=== PATIENT | female | born 1985 | race Caucasian/White ===

== ENCOUNTER → 2020-11-09 12:54 | Outpatient (BNVA) | payer MEDICAID, SELFPAY | PROVIDERS: PCP Internal Medicine; Referring Provider Internal Medicine Medical Oncology; Visit Provider Internal Medicine | DX: R07.2 Precordial pain (principal); I10 Essential (primary) hypertension | CPT/HCPCS: 93005; 99202 ==

== ENCOUNTER 2020-11-23 08:18 | Outpatient (REF) | payer MEDICAID, SELFPAY ==
[2020-11-23 09:42] LABS: Anion Gap 10 (12-20); Blood Urea Nitrogen 9 mg/dL (9-16); Calcium 10.1 mg/dL (8.4-10.2); Carbon Dioxide 31 mmol/L (22-29); Chloride 102 mmol/L (96-108); Estimated Glomerular Filt Rate > 60; Glucose Random 82 mg/dL (60-115); Potassium 4.6 mmol/L (3.3-5.1); Sodium 138 mmol/L (135-145)
== END 2020-11-23 08:19 | disposition home or self-care (01) ==
LOC: HO.LAB 08:18
PROVIDERS: PCP Internal Medicine; Visit Provider Internal Medicine
DX: R07.2 Precordial pain (principal)
CPT/HCPCS: 36415; 80048

== ENCOUNTER → 2020-12-15 08:20 | Outpatient (REF) | payer MEDICAID, SELFPAY ==
--- NOTE | 2020-12-15 08:24 | CA_ITS ---
Acquisition Time: 2020-12-15 09:06:52 Total Exercise Time: 00:09:48 Test Indications: CP Medications: SEE CHART Protocol: OZ Max HR: 196 BPM 105% of Pred: 185 BPM Max BP: 160/080 mmHG Max Work Load: 11.4 METS Exercise stress test with exercise 9 min 48 sec of Oz potocol, without anginal symptoms, wth rare isolated PVC, with normotensive response to exercise, without EKG changes meeting criteria for ischemia. Test reviewed with Dr Horne. Referred By: Parker Calderon Overread By: SIMONE BORRERO
--- NOTE | 2020-12-15 08:24 | CA_ITS ---
Transthoracic Echocardiogram Patient (Last, First, Middle): Sally Her, Gender: Female Date of : 1985 Age: 35 Procedure Date: 12/15/2020 Procedure Type: Transthoracic Echocardiogram Location: OP Height: 157.48 cm Weight: 68.95 kg BSA: 1.70 m2 Heart Rate: bpm BP: 130 / 70 mmHg Mapping Technician: ALICIA Dunn MD: Parker Calderon MD Symptoms: R07.2 - Precordial pain Study Quality: Fair Conclusions: - Normal study Findings Left Ventricle Normal left ventricular size, thickness, systolic function, and wall motion. The visually estimated ejection fraction is between 60-65%. Diastolic function is normal for age. Right Ventricle Normal right ventricular cavity size and systolic function. Atria Both atria are normal in size. Aortic Valve Normal aortic valve structure and function. There is no aortic valve stenosis. There is no aortic valve regurgitation. Mitral Valve Normal mitral valve structure and function. There is no mitral valve regurgitation. There is no mitral valve stenosis. Pulmonic Valve Normal pulmonic valve structure and function. There is trace pulmonic valve regurgitation. Tricuspid Valve Normal tricuspid valve structure and function. There is trace tricuspid valve regurgitation. Normal right atrial pressure. There is no evidence of pulmonary hypertension. Great Vessels All visible segments of the aorta are normal in size. The visualized portions of the pulmonary artery and branches are normal. Venous The inferior vena cava is normal in size and collapses greater than 50% with inspiration. Pericardium/Pleural There is no evidence of pericardial effusion. Prior Study Comparison No prior study available for comparison. Measurements 2D Linear Measurements IVSd: 0.74 0.6-0.9/0.6-1.0 cm LVIDd: 4.45 3.9-5.3/4.2-5.9 cm LVIDd Index: 2.62 2.4-3.2/2.2-3.1 cm/m2 LVIDs: 2.74 2.0-3.6 cm LVPWd: 0.70 0.7-1.1 cm Ao Root: 2.40 2.1-3.5 cm LA Diam: 3.50 2.7-3.8/3.0-4.0 cm LAIDs Index: 2.06 1.5-2.3 cm/m2 LV Mass: 120.54 67-162/88-224 g LV Mass Index: 70.91 43-95/49-115 g/m2 LVOT Diam: 1.90 3.0+(-)1.3 cm 2D Systolic Function EF 4C: 59.80 >55% EF 2C: 55.90 >55% EF BiP: 57.10 >55% Mitral Valve MV Pk E: 0.67 MV PK A: 0.36 MV Decel Time: 180.00 E/A: 1.90 E'Lateral: 15.10 E'Medial: 11.20 E/E' Med: 6.00 E/E' Lat: 4.50 PHT: 53.00 MVA PHT: 4.15 Decel Bucks: 3.73 Aortic Valve AoV Pk Baltazar: 1.36 AoV Mn Baltazar: 0.91 AoV VTI: 0.28 AoV Pk Grad: 7.00 Aov Mn Grad: 4.00 LUISA Cont.VTI: 2.22 LVOT LVOT Pk Baltazar: 1.09 LVOT Mn Baltazar: 0.73 LVOT VTI: 0.22 LVOT Pk Grad: 5.00 LVOT Mn Grad: 2.00 LVOT Diam: 1.90 LVOT Area: 2.84 Diastolic Function MV Pk E: 0.67 MV Pk A: 0.36 E/A: 1.90 E'Medial: 11.20 E/E' Med: 6.00 E' Laterial: 15.10 E/E' Lat: 4.50 Right Ventricle TAPSE (mm): 1.69 TVS' Baltazar: 10.00 Tricuspid Valve TR Pk Baltazar: 2.02 TR Pk Grad: 16.00 RA Press: 3.00 RVSP: 19.00 Great Vessels Aorta Ao Root-2D: 2.40 2.0-3.7 cm Ao Asc: 2.60 2.1-3.4 cm Ao Arch: 2.10 Updated in Other Vendor System with Status of Final Charbel Horne MD electronically signed on 12/16/2020 7:21:21 PM with status of Final
== END ==
LOC: HO.CARD 08:20
PROVIDERS: PCP Internal Medicine; Visit Provider Internal Medicine
DX: R07.2 Precordial pain (principal)
CPT/HCPCS: 93017; 93306

== ENCOUNTER → 2020-12-21 08:29 | Outpatient (BNVA) | payer MEDICAID, SELFPAY | PROVIDERS: PCP Internal Medicine; Referring Provider Internal Medicine; Visit Provider Internal Medicine | DX: I10 Essential (primary) hypertension (principal); R07.2 Precordial pain | CPT/HCPCS: 99212 ==

== ENCOUNTER 2023-09-30 08:06 | Outpatient (REF) | payer MEDICAID, SELFPAY ==
[2023-09-30 14:42] LABS: MANUAL DIFF FLAG NO
[2023-09-30 14:48] LABS: Eosinophils Absolute Auto 0.1 X10*3/uL (0.0-0.4); Eosinophils Percent Auto 3.1 % (0-4); Hematocrit 40.8 % (37.0-47.0); Hemoglobin 13.8 g/dl (12.0-16.0); Lymphocytes Absolute Auto 1.3 X10*3/uL (1.2-4.9); Mean Corpuscular HGB Conc 33.8 g/dl (31.0-35.0); Mean Corpuscular Hemoglobin 28.1 pg (27.0-33.0); Mean Corpuscular Volume 83.1 fL (80.0-98.0); Mean Platelet Volume 11.7 fL (9.4-12.3); Monocytes Absolute Auto 0.3 X10*3/uL (0.1-1.2); Monocytes Percent Auto 9.7 % (2-11); Neutrophils Absolute Auto 1.2 x10*3/uL (2.0-8.3); Neutrophils Percent Auto 41.2 % (45-73); Platelet Count 251 X10*3/uL (160-400); Red Blood Count 4.91 X10*6/uL (4.20-5.50); Red Cell Distribution Width 12.1 % (11.0-16.0); White Blood Count 2.9 X10*3/uL (4.8-10.8)
[2023-09-30 15:14] LABS: Alanine Aminotransferase 17 U/L (0-31); Albumin Level 3.9 g/dL (3.5-5.0); Alkaline Phosphatase 44 U/L (39-117); Anion Gap 15 (12-20); Aspartate Amino Transferase 21 U/L (5-31); Bilirubin Total 0.5 mg/dL (0.0-1.0); Blood Urea Nitrogen 9 mg/dL (9-16); Calcium 9.6 mg/dL (8.4-10.2); Carbon Dioxide 19 mmol/L (22-29); Chloride 106 mmol/L (96-108); Cholesterol 208 mg/dL (<200); Estimated Glomerular Filt Rate > 60; Glucose Random 87 mg/dL (60-115); HDL Cholesterol 55 mg/dL (>40); LDL Cholesterol Calculated 133 mg/dL (<100); Potassium 3.6 mmol/L (3.3-5.1); Sodium 136 mmol/L (135-145); Total Protein 7.7 g/dL (6.5-8.0); Triglycerides 102 mg/dL (<150)
[2023-09-30 15:33] LABS: TSH reflex Free T4 0.17 uIU/mL (0.32-4.0)
[2023-10-01 08:27] LABS: HIV AB/AG Nonreactive (Nonreactive); HIV Num 1 0.05 S/CO (0.00-0.99); ~HepC Num1 0.17 S/CO (0.00-0.79); ~Hepatitis C Antibody Nonreactive (Nonreactive)
== END 2023-09-30 08:07 | disposition home or self-care (01) ==
LOC: HO.CHCLDS 08:06
PROVIDERS: Visit Provider Internal Medicine
DX: I10 Essential (primary) hypertension (principal)
CPT/HCPCS: 36415; 80053; 80061; 84439; 84443; 85025; 86803; 87389

== ENCOUNTER 2024-04-02 10:10 | Outpatient (REF) | payer MEDICAID, SELFPAY ==
--- OUTSIDE RECORDS SUMMARY | 2024-04-02 11:02 | XMS_ITS | Encounter Summary ---
Author Organization [employer] Address [address] [facility] 7 [place] [address] Care Team Providers Care Formation Testing Operator Name Role Phone Juarez Quintana MD Primary Care Prov ider Reason for Visit * Reason Comments Med Change Request Encounter Details Date Type Department Care Team ([facility] st Contact Info) Description 03/12/2024 Refill [facility] MED & PEDS [address], [place] [phone] Juarez Quintana MD [address] [place] [address] Social History Tobacco Use Types Packs/Day Years Used Date Smoking Tobacco: Never Smokeless Tobacco: Never Housing Stability Answer Date Recorded What is your housing situation today? I have marisol zhao 08/18/[address] you li ve. Do you have problems with any of the following? None of the above 08/18/2023 Food Insecurity Answer Date Recorded Within the past 12 months, y ou worried that your food would run out before you got money to buy more: Never True 08/18/2023 Within the past 12 months,th e food you bought just didn't last and you didn't have enough money to get more: Never True 02/2023 Transportation Answer Date Recorded In the past 12 months, has l ack of transportation kept you from medical appts, meetings, work or from getting things needed for daily living? No 08/18/2023 Utilities Answer Date Recorded In the past 12 months, has t he electric, gas, oil or water company threatened to shut off services in your home? No 08/18/2023 Depression Answer Date Recorded Patient Health Questionnaire-2 Score 1 09/23/2023 Internet Access Answer Date Recorded Internet Access Q1 Yes 10/17/2023 Internet Access Q2 Not on file 10/17/2023 Comments Unknown Sex and Gender Information Value Date Recorded Sex Assigned at Female 12/17/2021 10:29 AM EDT Legal Sex Female 10:29 AM EDT Gender Identity Female 12/17/2021 10:29 AM EDT Sexual Orientation Straight 12/17/2021 10 :29 AM EDT documented as of this encounter Plan of Treatment Upcoming Encounters Date Type Department Care Team (Late st Contact Info) Description 04/13/2024 8:45 AM EST Telemedicine [facility] PEDS [address] [place] [address] Juarez Quintana MD [address] [place] [phone] documented as of this encounter Visit Diagnoses Not on filedocumented in this encounter Care Teams Formation Testing Operator Relationship Specialty Start Date End Date Juarez Quintana MD [address] [place] [address] PCP - General Internal Medicine 07/18/19 documented as of this encounter
--- OUTSIDE RECORDS SUMMARY | 2024-04-02 11:02 | XMS_ITS | Clinical Summary ---
Author Organization [employer] Address [address] [facility] [address] [place] [address] Care Team Providers Care Acupuncture Physician Name Role Phone Juarez Quintana MD Primary Care Prov ider Allergies No known active allergies Medications acetaminophen (Tylenol) 500 MG tablet Take 2 tablets by mouth if needed in the morning, at noon, in the evening, and at bedtime. 03/18/19 20 Active ibuprofen 400 MG tablet Take 1 tablet by mouth if needed in the morning, at noon, in the evening, and at bedtime. Take 1 tablet by oral route every 6 hours as needed for pain and/or fever 03/18/19 20 Active methocarbamol (Robaxin) 750 MG tablet Take 1 tablet (750 mg) by mouth 3 times daily for 14 days. 42 tablet 06/23/19 24 Active valsartan (Diovan) 80 MG tablet Take 1 tablet (80 mg) by mouth Once per day. 90 tablet 3 09/23/19 24 025 Active Diclofenac Sodium (Voltaren) 1 % gel Apply 2 g topically 3 times daily. 300 g 1 09/23/19 24 Active Blood Pressure kit 1 kit Once per day. 1 kit 09/23/19 24 Active hydroCHLOROthiaz helio 12.5 MG tabletIndication s:Primary hypertension Take 1 tablet (12.5 mg) by mouth Once per day. 90 tablet 3 03/11/19 25 026 Active Transderm-Scop 1 MG/3DAYS patch [address] 1 PATCH ON THE SKIN EVERY 3RD DAY. 10 patch 03/12/19 25 Active hydroCHLOROthiaz helio (HYDRODiuril) 25 MG tabletIndication s:Primary hypertension Take 1 tablet (25 mg) by mouth Once per day. 90 tablet 3 09/23/19 24 025 Discontinued scopolamine (Transderm-Scop) 1 MG/3DAYS patch [address] 1 patch on the skin every 3rd (third) day. 10 patch 03/11/19 25 025 Discontinued Active Problems Problem Noted Date Diagnosed Date Primary hypertension 03/12/2024 Assessment & Plan (03/12/2024 11:46 AM EST): Patient has not been monitoring her blood pressure, she is on hydrochlorothiazide and valsartan, encouraged home monitoring, bp target <140/90, Thyroid nodule 03/12/2024 Assessment & Plan (03/12/2024 11:47 AM EST): Patient had thyroid nodule biopsy done 05/2023, no results on chart, will refer to endocrinology, Aching headache 09/23/2023 Assessment & Plan (09/23/2023 1:02 PM EDT): Left sided headaches, with neck radiation, will refer to neurology for evaluation, she has tried NSAIDS without improvement in symptoms Neck pain 09/23/2023 Assessment & Plan (09/23/2023 1:04 PM EDT): Left side neck pain, mild improvement with muscle relaxant, will order a neck MRI Leukopenia 01/17/2022 Pelvic peritoneal adhesions, 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 Follow up in 4 months Encounters Date Type Department Care Team Description 04/01/2024 Telephone [facility] MEDICINE [address] [place] [phone] Juarez Quintana MD Medication Question 03/12/2024 Refill [facility] MED & PEDS [address] [place] [address] Juarez Quintana MD 03/11/2024 3:15 PM EST Telemedicine [facility] MED & PEDS [address] [place] [address] Juarez Quintana MD Thyroid nodule (Primary Dx); Primary hypertension 03/11/2024 Travel 03/10/2024 Telephone [facility] MED [facility]EDS [address] [place] [address] Juarez Quintana MD chart prep from Last 3 Months Immunizations Name Administration Dates Next Due Tdap 07/16/2013 Social History Tobacco Use Types Packs/Day Years Used Date Smoking Tobacco: Never Smokeless Tobacco: Never Tobacco Cessation:Counseling Given: Not Answered Housing Stability Answer Date Recorded What is [...] the past 12 months, has t he [employer], gas, oil or water [employer] threatened to shut off services in your [...] Orientation Straight 12/17/2021 10 :29 AM EDT Last Filed Vital Signs Vital Sign Reading Time Taken Comments Blood Pressure 147/92 09/23/2023 9:06 AM EDT Pulse 80 09/23/2023 9:06 AM EDT Temperature 36.3 ??C (97.3 ??F) 09/23/2023 9:06 AM ED T Respiratory Rate 14 09/23/2023 9:06 AM EDT Oxygen Saturation 98% 09/23/2023 9:06 AM EDT Inhaled Oxygen Concentration - - Weight 79.3 kg (174 lb 12.8 oz) 09/23/2023 9:06 AM EDT Height 157.5 cm (5' 2 ) 09/23/2023 9:06 AM EDT Body Mass Index 31.97 09/23/2023 9:06 AM EDT Plan of Treatment Upcoming Encounters Date Type Department Care Team (Late st Contact Info) Description 04/13/2024 8:45 AM EST Telemedicine [facility] MED & PEDS [address] [place] [address] ChandlerJuarez Chiu MD [address] [place] [address] Health Maintenance Due Date Last Done Comments Alcohol/Substance Use Screening 1997 Family Planning (PISQ) 2000 Hepatitis B Vaccines (1 of 3 - 19+ 3-dose series) 2004 Pap Smear 2006 Cervical Cancer Screening 10/06/2015 HPV/Cotest 10/06/2015 DTaP/Tdap/Td Vaccines (2 - T d or Tdap) 07/17/2023 07/16/2013 COVID-19 Vaccine (2023-2 5 season) 2023 02/28/2021, 06/06/2020, 05/07/2020 Influenza Vaccine (#1) 2023 Tobacco Screening 06/22/2024 06/23/2023 SDOH Screening 08/17/2024 08/18/2023 Depression Screening 09/22/2024 09/23/2023, 09/23/2023 Lipid Panel 09/29/2028 09/30/2023, 07/12/2021 Zoster Vaccines (1 of 2) 10/06/2035 RSV Patients and Patients Aged 60 years or older (1 - 1-dose 75+ series) 2060 HIV Screening Completed 09/30/2023 Hepatitis C Screening Completed 09/30/2023 HIB Vaccines Aged Out No longer eligi ble based on patient's age to complete this topic HPV Vaccines Aged Out No longer eligi ble based on patient's age to complete this topic Hepatitis A Vaccines Aged Out No long er eligible based on patient's age to complete this topic IPV Vaccines Aged Out No longer eligi ble based on patient's age to complete this topic Meningococcal Vaccine Aged Out No felicita al eligible based on patient's age to complete this topic Pneumococcal Vaccine: Pediatrics (0 to 5 Years) and At-Risk Patients (6 to 49) Years) Aged Out No longer eligible b ased on patient's age to complete this topic RSV under 20 months Aged Out No longe r eligible based on patient's age to complete this topic Rotavirus Vaccines Aged Out No longer eligible based on patient's age to complete this topic Procedures Procedure Name Priority Date/Time Associated Diagnosis Comments HEPATITIS C AB W/REFL TO HCV RNA, QN, PCR Routine 09/30/2023 8:10 AM EDT Primary hypertension HIV 1/2 ANTIGEN/ANTIBODY, FOURTH GENERATION W/RFL Routine 09/30/2023 8:10 AM EDT Primary hypertension LIPID PANEL, STANDARD Routine 09/30/2023 8:10 AM EDT Primary hypertension from Last 3 Months or Most Recently Relevant to Health Maintenance Results * Hepatitis C Antibody with Reflex to HCV, RNA, Quantitative, Real-Time PCR (09/30/2023 8:10 AM EDT) Hepatitis C Antibody Nonreactive Nonreactive [facility] Comment:Antibodies to HCV no t detected; does not exclude early acuteHCV infection. Blood Venous blood specimen / Unknown 09/30/2023 8:10 AM EDT 09/30/2023 2:36 PM EDT Juarez Frnaco MD LAB BLOOD ORDERABL ES Final Result Performing Organization Address [facility] Co de Phone Number [facility] [address] [place] [phone] * HIV-1/2 Antigen and Antibodies, Fourth Generation, with Reflexes (09/30/2023 8:10 AM EDT) HIV AB/AG Nonreactive Nonreactive [facility] Comment:HIV-1 p24 Ag and/or HIV-1/HIV-2 Ab not detected.A test result that is nonreactive does not exclude thepossibility of exposure to or infection with HIV-1 and/orHIV-2. Nonreactive results in this assay for individualswith prior exposure to HIV-1 and/or HIV-2 may be due toantigen and antibody levels that are below the limit ofdetection of this assay.The Optovue HIV Ag/Ab Combo assay result andsupplemental assay results should be interpreted inconjunction with the patient's clinical presentation,history and other laboratory results. If the results areinconsistent with clinical evidence, additional testing issuggested to confirm the result. Blood Venous blood specimen / Unknown 09/30/2023 8:10 AM EDT 09/30/2023 2:36 PM EDT Juarez Franco MD LAB BLOOD ORDERABL ES Final Result Performing Organization Address [facility] Co de Phone Number [facility] [address] [place] [phone] * (ABNORMAL) Lipid Panel, Standard (09/30/2023 8:10 AM EDT) Triglycerides 102 <150 mg/dL [facility] Comment:Desirable Triglyceri de: less than 150 mg/dLBorderline High Triglyceride 150-199 mg/dLHigh Triglyceride: 200-499 mg/dLVery High Triglyceride: greater than or equal to 5OO mg/dL Cholesterol 208(H) <200 mg/dL [facility] Comment:Desirable Cholestero l: less than 200 mg/dLBorderline High Cholesterol: 200-239 mg/dLHigh Cholesterol: greater than 239 mg/dL LDL Cholesterol Calculated 133(H) <100 mg/dL [facility] Comment:Desirable LDL: less than 100 mg/dLNear Optimal/Above Optimal LDL: 110- 129 mg/dLBorderline High LDL: 130-159 mg/dLHigh LDL: 160-189 mg/dLVery High LDL: greater than or equal to 190 mg/dL HDL Cholesterol 55 >40 mg/dL [facility] Comment:Desirable HDL: great er than 40 mg/dL Note: This HDL assay may give artificially low results in patients with liver disease. Blood Venous blood specimen / Unknown 09/30/2023 8:10 AM EDT 09/30/2023 2:36 PM EDT us Juarez Franco MD LAB BLOOD ORDERABL ES Final Result [facility] [address] [place] [phone] from Last 3 Months or Most Recently Relevant to Health Maintenance Insurance C3 Care Teams Acupuncture Physician Relationship Specialty Start Date End Date Juarez Quintana MD [address] [place] [phone] PCP - General Internal Medicine 07/18/19
--- OUTSIDE RECORDS SUMMARY | 2024-04-02 11:02 | XMS_ITS | Encounter Summary ---
Author Organization [employer] Address [address] [facility] 7 [place] [address] Care Team Providers Care Sap Administrator Name Role Phone Juarez Quintana MD Primary Care Prov ider Reason for Visit * Reason Onset Date Comments chart prep 03/10/2024 Encounter Details Date Type Department Care Team ([facility] st Contact Info) Description 03/10/2024 Telephone [facility] MED & PEDS [address] [place], [place] [phone] Juarez Quintana MD [address] [place] [address] chart prep Social History Tobacco Use Types Packs/Day Years Used Date Smoking Tobacco: Never Smokeless Tobacco: Never Housing Stability Answer Date Recorded What is your housing situation today? I have marisolneel zhao 08/18/[address] you [...] AM EDT documented as of this encounter Miscellaneous Notes * Telephone Encounter - Keyal Rivera [place] - 03/10/2024 4:05 PM EST Chart Prep Labs: done Images: done Vaccines due: yes Referrals: pending appt Screenings: pap smear Overdue care gaps: Sbirt documented in this encounter Plan of Treatment Upcoming Encounters Date Type Department Care Team (Late st Contact Info) Description 04/13/2024 8:45 AM EST Telemedicine [facility] MED & PEDS [address] [place] [address] Juarez Quintana MD [address] [place] [address] documented as of this encounter Visit Diagnoses Not on filedocumented in this encounter Care Teams Sap Administrator Relationship Specialty Start Date End Date Juarez Quintana MD [address] [place] [address] PCP - General Internal Medicine 07/18/19 documented as of this encounter
--- OUTSIDE RECORDS SUMMARY | 2024-04-02 11:02 | XMS_ITS | Encounter Summary ---
Author Organization [facility] Address [address] [place] [phone] Care Team Providers Care Cold Roll Catcher Name Role Phone Juarez Quintana MD Primary Care Prov ider Reason for Referral * Consultation (Routine) - Closed Specialty Diagnoses / Procedures Referred By Beatrice ballard Referred To Contact Endocrinology Diagnoses Thyroid nodule Juarez Quintana MD [address] [place] [address] Phone: tel: fax: Referral ID Status Reason Start Date Expiration Date V isits Requested Visits Authorized [id number] Closed Specialty Services Required 03/11/2024 03/11/2025 1 1 * Imaging (Routine) - Authorized Specialty Diagnoses / Procedures Referred By Beatrice ballard Referred To Contact Radiology Diagnoses Thyroid nodule Procedures US Thyroid Juarez Quintana MD [address] [place] [address] Phone: tel: fax: [facility] [address] [facility], [address] [address] Phone: tel: fax: Referral ID Status Reason Start Date Expiration Date V isits Requested Visits Authorized [id number] Authorized 03/11/2024 03/11/2025 1 1 Encounter Details Date Type Department Care Team (Late st Contact Info) Description 03/11/2024 3:15 PM EST Telemedicine [facility] MED & PEDS [address] [place] [address] Juarez Quintana MD [address] [place] [address] Thyroid nodule (Primary Dx); Primary hypertension Social History Tobacco Use Types Packs/Day Years Used Date Smoking Tobacco: Never Smokeless Tobacco: Never Housing Stability Answer Date Recorded What is your housing situation today? I have marisol sing 08/18/[address] you li [...] AM EDT documented as of this encounter Progress Notes * Juarez Franco MD - 03/11/2024 3:15 PM EST Subjective Patient ID: Sally Flores is a 38 y.o. female who presents for No chief complaint on file.. Hypertension This is a chronic problem. The problem is controlled. Pertinent negatives include no chest pain, headaches, palpitations or shortness of breath. Review of Systems Respiratory: Negative for shortness of breath. Cardiovascular: Negative for chest pain and palpitations. Neurological: Negative for headaches. Objective Physical Exam Neurological: General: No focal deficit present. Mental Status: She is oriented to person, place, and time. Psychiatric: Mood and Affect: Mood normal. Behavior: Behavior normal. Assessment/Plan Problem List Items Addressed This Visit Primary hypertension Patient has not been monitoring her blood pressure, she is on hydrochlorothiazide and valsartan, encouraged home monitoring, bp target <140/90, Relevant Medications hydroCHLOROthiazide 12.5 MG tablet Other Relevant Orders TSH W/Reflex to FT4 CBC auto differential Iron And Total Iron Binding Capacity Vitamin B12 (Cobalamin) and Folate Panel, Serum Comprehensive Metabolic Panel Prolactin, Dilution Study FSH And LH Thyroid nodule - Primary Patient had thyroid nodule biopsy done 05/2023, no results on chart, will refer to endocrinology, Relevant Orders US Thyroid Referral to Endocrinology documented in this encounter Miscellaneous Notes * Assessment & Plan Note - Juarez Franco MD - 03/12/2024 11:47 AM ESTAssociated Problem(s): Thyroid nodule Patient had thyroid nodule biopsy done 05/2023, no results on chart, will refer to endocrinology, * Assessment & Plan Note - Juarez Franco MD - 03/12/2024 11:46 AM ESTAssociated Problem(s): Primary hypertension Patient has not been monitoring her blood pressure, she is on hydrochlorothiazide and valsartan, encouraged home monitoring, bp target <140/90, documented in this encounter Plan of Treatment Upcoming Encounters Date Type Department Care Team (Late st Contact Info) Description 04/13/2024 8:45 AM EST Telemedicine [facility] MED & PEDS [address] [place] [address] Juarez Quintana MD [address] [place] [address] Scheduled Orders Name Type Priority Associated Diagnoses Orde r Schedule TSH W/Reflex to FT4 Lab Routine Primary hypertension Expected: 03/11/2024 (Approximate), Expires: 03/11/2025 CBC auto differential Lab Routine Primary hypertension Expected: 03/11/2024 (Approximate), Expires: 03/11/2025 Iron And Total Iron Binding Capacity Lab Routine Primary hypertension Expected: 03/11/2024, Expires: 03/11/2025 Vitamin B12 (Cobalamin) and Folate Panel, Serum Lab Routine Primary hypertension Expected: 03/11/2024 (Approximate), Expires: 03/11/2025 Comprehensive Metabolic Panel Lab Routine Primary hypertension Expected: 03/11/2024 (Approximate), Expires: 03/11/2025 Prolactin, Dilution Study Lab Routine Primary hypertension Expected: 03/11/2024 (Approximate), Expires: 03/11/2025 FSH And LH Lab Routine Primary hypertension Expected: 03/11/2024 (Approximate), Expires: 03/11/2025 US Thyroid Imaging Routine Thyroid nodule Expected: 03/11/2024, Expires: 03/11/2025 Scheduled Referrals Name Type Priority Associated Diagnoses Order Schedule Referral to Endocrinology Outpatient Referral Routine Thyroid nodule Expected: 03/11/2024 (Approximate), Expires: 03/11/2025 documented as of this encounter Visit Diagnoses Diagnosis Thyroid nodule- Primary Nontoxic uninodular goiter Primary hypertension Unspecified essential hypertension documented in this encounter Care Teams Cold Roll Catcher Relationship Specialty Start Date End Date Juarez Quintana MD [address] [place] [address] PCP - General Internal Medicine 07/18/19 documented as of this encounter
--- OUTSIDE RECORDS SUMMARY | 2024-04-02 11:02 | XMS_ITS | Encounter Summary ---
Author Organization [employer] Address 75 [facility] 7 [place] [address] Care Team Providers Care Director Of Direct Marketing Name Role Phone Juarez Quintana MD Primary Care Prov ider Reason for Visit * Reason Onset Date Comments Medication Question 04/01/2024 Encounter Details Date Type Department Care Team (Late st Contact Info) Description 04/01/2024 Telephone [facility] MEDICINE [address] [place] [address] Juarez Quintana MD [address] [place] [address] Medication Question Social History Tobacco Use Types Packs/Day Years [...] encounter Miscellaneous Notes * Telephone Encounter - Chuckyrenetta McclellanJoshua - 04/01/2024 1:08 PM EST TC from pt requesting to Get Alternate Medication for Transderm-Scop 1 MG/3DAYS patch 72 hour due to it being on back order. Pt is requesting medication Scopolamine. Contact pt at [phone] documented in this encounter Plan of Treatment Upcoming Encounters Date Type Department Care Team (Late st Contact Info) Description 04/13/2024 8:45 AM EST Telemedicine [facility] CHC MED & PEDS [address] [place] [address] Juarez Quintana MD [address] [place] [address] documented as of this encounter Visit Diagnoses Not on filedocumented in this encounter Care Teams Director Of Direct Marketing Relationship Specialty Start Date End Date Juarez Quintana MD [address] [place] [address] PCP - General Internal Medicine 07/18/19 documented as of this encounter
--- OUTSIDE RECORDS SUMMARY | 2024-04-02 11:02 | XMS_ITS | Encounter Summary ---
Author Organization [employer] Address [address] [facility] [address] 7[address] [place] [address] Care Team Providers Care Land Clearer Name Role Phone Juarez Quintana MD Primary Care Prov ider Encounter Details Date Type Department Care Team (Latest Contact Info) Description 03/11/2024 Travel Social History Tobacco Use Types Packs/Day Years [...] Info) Description 04/13/2024 8:45 AM EST Telemedicine [facility] MED & PEDS [address] [place] [address] Juarez Quintana MD [address] [place] [address] documented as of this encounter Visit Diagnoses Not on filedocumented in this encounter Care Teams Land Clearer Relationship Specialty Start Date End Date Juarez Quintana MD [address] [place] [address] PCP - General Internal Medicine 07/18/19 documented as of this encounter
[2024-04-02 14:12] LABS: MANUAL DIFF FLAG NO
[2024-04-02 14:24] LABS: Basophils Percent Auto 0.8 % (0-2); Eosinophils Absolute Auto 0.1 X10*3/uL (0.0-0.4); Eosinophils Percent Auto 2.7 % (0-4); Lymphocytes Absolute Auto 1.2 X10*3/uL (1.2-4.9); Lymphocytes Percent Auto 47.1 % (20-40); Mean Corpuscular HGB Conc 34.2 g/dl (31.0-35.0); Mean Corpuscular Hemoglobin 28.1 pg (27.0-33.0); Mean Corpuscular Volume 82.1 fL (80.0-98.0); Mean Platelet Volume 11.8 fL (9.4-12.3); Monocytes Absolute Auto 0.3 X10*3/uL (0.1-1.2); Monocytes Percent Auto 10.7 % (2-11); Neutrophils Percent Auto 38.7 % (45-73); Platelet Count 252 X10*3/uL (160-400); Red Blood Count 4.63 X10*6/uL (4.20-5.50); Red Cell Distribution Width 13.1 % (11.0-16.0); White Blood Count 2.6 X10*3/uL (4.8-10.8)
[2024-04-02 15:01] LABS: Alanine Aminotransferase 21 U/L (0-31); Albumin Level 4.1 g/dL (3.5-5.0); Alkaline Phosphatase 52 U/L (39-117); Anion Gap 10 (12-20); Aspartate Amino Transferase 24 U/L (5-31); Bilirubin Total 0.7 mg/dL (0.0-1.0); Blood Urea Nitrogen 9 mg/dL (9-16); Calcium 9.7 mg/dL (8.4-10.2); Carbon Dioxide 26 mmol/L (22-29); Chloride 103 mmol/L (96-108); Estimated Glomerular Filt Rate > 60; Glucose Random 76 mg/dL (60-115); Iron 154 mcg/dL (30-160); Percent Iron Saturation 46 % (15-50); Potassium 3.9 mmol/L (3.3-5.1); Sodium 135 mmol/L (135-145); Total Iron Binding Capacity 336 mcg/dL (228-428); Unsaturated Iron Binding 182 ug/dL
[2024-04-02 15:03] LABS: TSH reflex Free T4 1.08 uIU/mL (0.32-4.0)
[2024-04-02 15:11] LABS: Folate 8.4 ng/mL (> or = 4.0); Vitamin B12 381 pg/mL (200-900)
[2024-04-06 01:04] LABS: Prolactin Undiluted 6.5 ng/mL
== END 2024-04-02 10:11 | disposition home or self-care (01) ==
LOC: HO.CHCLDS 10:10
PROVIDERS: Visit Provider Internal Medicine
DX: I10 Essential (primary) hypertension (principal)
CPT/HCPCS: 36415; 80053; 82607; 82746; 83540; 84146; 84443; 85025

== ENCOUNTER 2024-04-16 09:01 | Outpatient (REF) | payer MEDICAID, SELFPAY ==
--- OUTSIDE RECORDS SUMMARY | 2024-04-16 09:37 | XMS_ITS | Encounter Summary ---
Author Organization [employer] Address [address] [facility] [address] 7t [place] [address] Care Team Providers Care Diazo Technician Name Role Phone Juarez Quintana MD Primary Care Prov ider Encounter Details Date Type Department Care Team (Latest Contact Info) Description 04/13/2024 Travel Social History Tobacco Use Types Packs/Day [...] Care Team (Late st Contact Info) Description 07/13/2024 8:30 AM EDT Telemedicine [facility] MED & PEDS [address] [place] [address] Juarez Quintana MD [address] [place] [address] documented as of this encounter Visit Diagnoses Not on filedocumented in this encounter Care Teams Diazo Technician Relationship Specialty Start Date End Date Juarez Quintana MD [address] [place] [address] PCP - General Internal Medicine 07/18/19 documented as of this encounter
--- OUTSIDE RECORDS SUMMARY | 2024-04-16 09:37 | XMS_ITS | Encounter Summary ---
Author Organization [employer] Address [address] [facility] [address] 7[address] [place] [address] Care Team Providers Care Salon Professional Name Role Phone Juarez Quintana MD Primary Care Prov ider Encounter Details Date Type Department Care Team (Latest Contact Info) Description 04/07/2024 Travel Social History Tobacco Use Types Packs/Day [...] Info) Description 07/13/2024 8:30 AM EDT Telemedicine [facility] MED & PEDS [address] [place] [address] Juarez Quintana MD [address] [place] [address] documented as of this encounter Visit Diagnoses Not on filedocumented in this encounter Care Teams Salon Professional Relationship Specialty Start Date End Date Juarez Quintana MD [address] [place] [address] PCP - General Internal Medicine 07/18/19 documented as of this encounter
--- OUTSIDE RECORDS SUMMARY | 2024-04-16 09:37 | XMS_ITS | Encounter Summary ---
Author Organization [employer] Address 75 [facility] 7 [place] [address] Care Team Providers Care Resaw Tailer Name Role Phone Juarez Quintana MD Primary Care Prov ider Reason for Visit * Reason Onset Date Comments chart prep 04/12/2024 Encounter Details Date Type Department Care Team ([facility] st Contact Info) Description 04/12/2024 Telephone [facility] CHC MED & PEDS [address] [place], [place] [phone] Juarez Quintana MD [address] [place] [address] chart prep Social History Tobacco Use Types Packs/Day Years Used Date Smoking Tobacco: Never Smokeless Tobacco: Never Housing Stability Answer Date Recorded What is your housing situation today? I have marisol zaho 08/18/[address] you li [...] encounter Miscellaneous Notes * Telephone Encounter - Keyla Rivera [place] - 04/12/2024 4:10 PM EST Chart Prep Labs: done Images: done Vaccines due: yes Referrals: pending appt Screenings: none Overdue care gaps: Sbirt documented in this encounter Plan of Treatment Upcoming Encounters Date Type Department Care Team (Late st Contact Info) Description 07/13/2024 8:30 AM EDT Telemedicine [facility] MED & PEDS [address] [place] [address] Juarez Quintana MD [address] [place] [address] documented as of this encounter Visit Diagnoses Not on filedocumented in this encounter Care Teams Resaw Tailer Relationship Specialty Start Date End Date Juarez Quintana MD [address] [place] [address] PCP - General Internal Medicine 07/18/19 documented as of this encounter
--- OUTSIDE RECORDS SUMMARY | 2024-04-16 09:37 | XMS_ITS | Encounter Summary ---
Author Organization [employer] Address 75 [facility] 7 [place] [address] Care Team Providers Care Cone Picker Name Role Phone Juarez Quintana MD Primary Care Prov ider Reason for Visit * Reason Comments Med Change Request Encounter Details Date Type Department Care Team ([facility] st Contact Info) Description 04/07/2024 Refill [facility] CHC MED & PEDS [address] [place], [place] [phone] Juarez Quintana MD [address] [place] [address] Social History Tobacco Use Types Packs/Day Years [...] Info) Description 07/13/2024 8:30 AM EDT Telemedicine [facility] MED & PEDS [address] [place] [address] Juarez Quintana MD [address] [place] [address] documented as of this encounter Visit Diagnoses Not on filedocumented in this encounter Care Teams Cone Picker Relationship Specialty Start Date End Date Juarez Quintana MD [address] [place] [address] PCP - General Internal Medicine 07/18/19 documented as of this encounter
--- OUTSIDE RECORDS SUMMARY | 2024-04-16 09:37 | XMS_ITS | Encounter Summary ---
Author Organization [employer] Address 75 [facility] 7t [place] [address] Care Team Providers Care Flight Security Specialist Name Role Phone Juarez Quintana MD Primary Care Prov ider Encounter Details Date Type Department Care Team (Late st Contact Info) Description 04/02/2024 Orders Only [facility] CHC MED & PEDS [address] [place], [place] [phone] Juarez Quintana MD [address] [place] [address] Social History Tobacco Use Types Packs/Day Years [...] 07/13/2024 8:30 AM EDT Telemedicine [facility] MED & PEDS [address] [place], [place] [phone] Juarez Quintana MD [address] [place] [address] documented as of this encounter Visit Diagnoses Not on filedocumented in this encounter Care Teams Flight Security Specialist Relationship Specialty Start Date End Date Juarez Quintana MD [address] [place] [address] PCP - General Internal Medicine 07/18/19 documented as of this encounter
--- OUTSIDE RECORDS SUMMARY | 2024-04-16 09:37 | XMS_ITS | Clinical Summary ---
Author Organization [employer] Address 75 [facility] 7t [place] [address] Care Team Providers Care Hybrid Derivatives Trader Name Role Phone Juarez Quintana MD Primary [...] 14 days. 42 tablet 06/23/19 24 Active Diclofenac Sodium (Voltaren) 1 % gel Apply 2 g topically 3 times daily. 300 g 1 09/23/19 24 Active Blood Pressure kit 1 kit Once per day. 1 kit 09/23/19 24 Active Transderm-Scop 1 MG/3DAYS patch [address] 1 PATCH ON THE SKIN EVERY 3RD DAY. 10 patch 03/12/19 25 Active Transderm-Scop 1 MG/3DAYS patch 72 hour APPLY 1 PATCH ONTO SKIN EVERY THIRD DAY 10 patch 1 04/08/19 25 Active valsartan (Diovan) 80 MG tablet Take 1 tablet (80 mg) by mouth Once per day. 90 tablet 3 04/13/19 25 026 Active hydroCHLOROthia zide 12.5 MG tabletIndicatio ns:Primary hypertension Take 1 tablet (12.5 mg) by mouth Once per day. 90 tablet 3 04/13/19 25 026 Active valsartan (Diovan) 80 MG tablet Take 1 tablet (80 mg) by mouth Once per day. 90 tablet 3 09/23/19 24 025 Discontinued(Re order (will not trigger notification to Pharmacy)) hydroCHLOROthia zide 12.5 MG tabletIndicatio ns:Primary hypertension Take 1 tablet (12.5 mg) by mouth Once per day. 90 tablet 3 03/11/19 25 025 Discontinued(Re order (will not trigger notification to Pharmacy)) scopolamine (Transderm-Scop ) 1 MG/3DAYS patch [address] 1 patch on the skin every 3rd (third) day. 10 patch 1 04/02/19 25 025 Discontinued Transderm-Scop 1 MG/3DAYS patch [address] 1 PATCH ON THE SKIN EVERY 3RD DAY. 10 patch 1 04/07/19 25 025 Discontinued Active Problems Problem Noted [...] Encounters Date Type Department Care Team Description 04/13/2024 8:45 AM EST Telemedicine [facility] CHC MED & PEDS [address] [place] [address] Juarez Quintana MD Joint swelling (Primary Dx); Primary hypertension 04/13/2024 Travel 04/12/2024 Telephone [facility] MED & PEDS [address] [place] [address] Juarez Quintana MD chart prep 04/07/2024 Travel 04/07/2024 Refill [facility] MED & PEDS [address] [place] [address] Juarez Quintana MD 04/05/2024 Refill [facility] CHC MED & PEDS [address] [place] [address] Juarez Quintana MD 04/02/2024 Orders Only [facility] CHC MED & PEDS [address] [place] [address] Juarez Quintana MD 04/01/2024 Telephone [facility] MEDICINE [address] [place] [address] Juarez Quintana MD Medication Question 03/12/2024 Refill [facility] CHC MED & PEDS [address] [place] [address] Juarez Quintana MD 03/11/2024 3:15 PM EST Telemedicine [facility] CHC MED & PEDS [address] [place] [address] Juarez Quintana MD Thyroid nodule (Primary Dx); Primary hypertension 03/11/2024 Travel 03/10/2024 Telephone [facility] CHC MED & PEDS [address] [place] [address] Juarez Quintana MD chart prep from Last [...] Sign Reading Time Taken Comments Blood Pressure 137/86 04/13/2024 8:54 AM EST Pulse 80 09/23/2023 9:06 AM EDT Temperature [...] Upcoming Encounters Date Type Department Care Team ([facility] st Contact Info) Description 07/13/2024 8:30 AM EDT Telemedicine [facility] CHC MED & PEDS [address] [place] [address] Juarez Quintana MD [address] [place] [address] Health Maintenance Due Date Last Done Comments Alcohol/Substance Use Screening 1997 Family Planning (PISQ) 2000 Hepatitis B Vaccines (1 of 3 - 19+ 3-dose series) 2004 Pap Smear 2006 Cervical Cancer Screening 10/06/2015 HPV/Cotest 10/06/2015 DTaP/Tdap/Td Vaccines (2 - T d or Tdap) 07/17/2023 07/16/2013 COVID-19 Vaccine (4 - 2023-2 5 season) 2023 02/28/2021, 06/06/2020, 05/07/2020 Influenza [...] Procedure Name Priority Date/Time Associated Diagnosis Comments US THYROID Routine 04/08/2024 Thyroid nodule PROLACTIN, DILUTION STUDY Routine 04/02/2024 10:11 AM EST Primary hypertension COMPREHENSIVE METABOLIC PANEL Routine 04/02/2024 10:11 AM EST Primary hypertension VITAMIN B12/FOLATE, SERUM PANEL Routine 04/02/2024 10:11 AM EST Primary hypertension IRON AND TOTAL IRON BINDING CAPACITY Routine 04/02/2024 10:11 AM EST Primary hypertension CBC WITH AUTO DIFFERENTIAL Routine 04/02/2024 10:11 AM EST Primary hypertension TSH W/REFLEX TO FT4 Routine 04/02/2024 1 0:11 AM EST Primary hypertension HEPATITIS C AB W/REFL TO HCV RNA, QN, PCR Routine 09/30/2023 8:10 AM EDT Primary hypertension HIV 1/2 ANTIGEN/ANTIBODY, FOURTH GENERATION W/RFL Routine 09/30/2023 8:10 AM EDT Primary hypertension LIPID PANEL, STANDARD Routine 09/30/2023 8:10 AM EDT Primary hypertension from Last 3 Months or Most Recently Relevant to Health Maintenance Results * US Thyroid (04/08/2024) Anatomical Region Laterality Modality Head, Neck Ultrasound us Juarez Franco MD IM US PROCEDURES Final Result * Prolactin, Dilution Study (04/02/2024 10:11 AM EST) Prolactin, Undiluted 6.5 ng/mL [facility] Prolactin, Diluted SEE NOTE ng/mL [facility] Comment:Result confirmed by 1:100 dilution. No high dosehook effect detected. Reference Range Females Non- 3.0-30.0 10.0-209.0 Postmenopausal 2.0-20.0Prolactin dilution studies are done to determine ifthere is a high-dose hook effect (i.e. a non-linearassay response due to a very high concentration ofProlactin). This is reported to occur at Prolactinconcentrations at or above 30,000 ng/mL.This test is not recommended for identifyingmacroprolactin. [facility], Prolactin, Total and Monomeric is therecommended test (Order code [id number]).THIS TEST WAS PERFORMED AT:[facility] [address] [id number] HOLLEY MD Blood Venous blood specimen / Unknown 04/02/2024 10:11 AM EST 04/02/2024 2:12 PM EST Juarez Franco MD LAB BLOOD ORDERABL ES Final Result [facility] [address] [place] [phone] * Vitamin B12 (Cobalamin) and Folate Panel, Serum (04/02/2024 10:11 AM EST) Vitamin B12 381 200 - 900 pg/mL [facility] Comment:NORMAL 200-900 PG/ML INDETERMINATE 160-199 PG/ML DEFICIENT < 160 PG/ML Folate 8.4 > or = 4.0 ng/mL [facility] Comment:Reference Values:> o r = 4.0 ng/mL< 4.0 ng/mL suggests folate deficiency Methotrexate, aminopterin and folinic acid(leucovorin) are chemotherapeutic agents whose molecularstructures are similar to folate; therefore, the Architectfolate assay cannot be used for patients using these drugs. Blood Venous blood specimen / Unknown 04/02/2024 10:11 AM EST 04/02/2024 2:12 PM EST Juarez Franco MD LAB BLOOD ORDERABL ES Final Result Performing Organization Address [facility] Co de Phone Number [facility] [address] [place] [address] [phone] * TSH W/Reflex to FT4 (04/02/2024 10:11 AM EST) Pathologist [facility] TSH reflex Free T4 1.08 0.32 - 4.0 uIU/mL [facility] Blood Venous blood specimen / Unknown 04/02/2024 10:11 AM EST 04/02/2024 2:12 PM EST Juarez Franco MD LAB BLOOD ORDERABL ES Final Result Performing Organization Address [facility] de Phone Number [facility] [address] [place] [phone] * (ABNORMAL) CBC auto differential (04/02/2024 10:11 AM EST) Pathologist [facility] White Blood Count 2.6(L) 4.8 - 10.8 X10*3/uL [facility] Red Blood Count 4.63 4.20 - 5.50 X10*6/uL [facility] Hemoglobin 13.0 12.0 - 16.0 g/dl [facility] Hematocrit 38.0 37.0 - 47.0 % [facility] Mean Corpuscular Volume 82.1 80.0 - 98.0 fL [facility] Mean Corpuscular Hemoglobin 28.1 27.0 - 33.0 pg [facility] Mean Corpuscular HGB Conc 34.2 31.0 - 35.0 g/dl [facility] Red Cell Distribution Width 13.1 11.0 - 16.0 % [facility] Platelet Count 252 160 - 400 X10*3/uL [facility] Mean Platelet Volume 11.8 9.4 - 12.3 fL [facility] Neutrophils Percent Auto 38.7(L) 45 - 73 % [facility] Imm Gran Pct Auto 0.0 0.0 - 0.4 % [facility] Lymphocytes Percent Auto 47.1(H) 20 - 40 % [facility] Monocytes Percent Auto 10.7 2 - 11 % [facility] Eosinophils Percent Auto 2.7 0 - 4 % [facility] Basophils Percent Auto 0.8 0 - 2 % [facility] NRBC Pct Auto 0.0 0.0 - 0.2 /100WBC [facility] Neutrophils Absolute Auto 1.0(L) 2.0 - 8.3 x10*3/uL [facility] Imm Gran Abs Auto 0.00 0.00 - 0.03 X10*3/uL [facility] Lymphocytes Absolute Auto 1.2 1.2 - 4.9 X10*3/uL [facility] Monocytes Absolute Auto 0.3 0.1 - 1.2 X10*3/uL [facility] Eosinophils Absolute Auto 0.1 0.0 - 0.4 X10*3/uL [facility] Basophils Absolute Auto 0.0 0.0 - 0.2 X10*3/uL [facility] NRBC Abs Auto 0.000 0.0 - 0.012 X10*3/uL [facility] Blood Venous blood specimen / Unknown 04/02/2024 10:11 AM EST 04/02/2024 1:55 PM EST us Juarez Franco MD LAB BLOOD ORDERABL ES Final Result [facility] [address] [place] [phone] * Iron And Total Iron Binding Capacity (04/02/2024 10:11 AM EST) Iron 154 30 - 160 mcg/dL [facility] Total Iron Binding Capacity 336 228 - 428 mcg/dL [facility] Percent Iron Saturation 46 15 - 50 % [facility] Unsaturated Iron Binding 182 ug/dL [facility] Blood Venous blood specimen / Unknown 04/02/2024 10:11 AM EST 04/02/2024 2:12 PM EST us Juarez Franco MD LAB BLOOD ORDERABL ES Final Result [facility] [address] [place] [phone] [phone] * (ABNORMAL) Comprehensive Metabolic Panel (04/02/2024 10:11 AM EST) Sodium 135 135 - 145 mmol/L [facility] Potassium 3.9 3.3 - 5.1 mmol/L [facility] Chloride 103 96 - 108 mmol/L [facility] Carbon Dioxide 26 22 - 29 mmol/L [facility] Anion Gap 10(L) 12 - 20 [facility] Urea Nitrogen (BUN) 9 9 - 16 mg/dL [facility] Creatinine, Serum 0.73 0.5 - 1.4 mg/dL [facility] Estimated Glomerular Filt Rate >60 [facility] Comment:Chronic Kidney Disea se: Estimated GFR < 60 mL/min/[id number] Kidney Disease: Estimated GFR < 15 mL/min/1.73m2 Glucose 76 60 - 115 mg/dL [facility] Calcium 9.7 8.4 - 10.2 mg/dL [facility] Bilirubin, Total 0.7 0.0 - 1.0 mg/dL [facility] Aspartate Amino Transferase 24 5 - 31 U/L [facility] Alanine Aminotransferase 21 0 - 31 U/L [facility] Total Protein 8.0 6.5 - 8.0 g/dL [facility] Albumin Level 4.1 3.5 - 5.0 g/dL [facility] Alkaline Phosphatase 52 39 - 117 U/L [facility] Blood Venous blood specimen / Unknown 04/02/2024 10:11 AM EST 04/02/2024 2:12 PM EST Juarez Franco MD LAB BLOOD ORDERABL ES Final Result Performing Organization Address [facility] Co de Phone Number [facility] [address] [place] [phone] * Hepatitis C Antibody with Reflex to HCV, RNA, Quantitative, Real-Time PCR (09/30/2023 8:10 AM EDT) Hepatitis C Antibody Nonreactive Nonreactive [facility] Comment:Antibodies to HCV no t detected; does not exclude early acuteHCV infection. Blood Venous blood specimen / Unknown 09/30/2023 8:10 AM EDT 09/30/2023 2:36 PM EDT Juarez Franco MD LAB BLOOD ORDERABL ES Final Result Performing Organization Address [facility] Co de Phone Number [facility] [address] [place] [phone] * HIV-1/2 Antigen and Antibodies, Fourth Generation, with Reflexes (09/30/2023 8:10 AM EDT) HIV AB/AG Nonreactive Nonreactive [facility] Comment:HIV-1 p24 Ag and/or HIV-1/HIV-2 Ab not detected.A test result that is nonreactive does not exclude thepossibility of exposure to or infection with HIV-1 and/orHIV-2. Nonreactive results in this assay for individualswith prior exposure to HIV-1 and/or HIV-2 may be due toantigen and antibody levels that are below the limit ofdetection of this assay.The [employer] HIV Ag/Ab Combo assay result andsupplemental assay results should be interpreted inconjunction with the patient's clinical presentation,history and other laboratory results. If the results areinconsistent with clinical evidence, additional testing issuggested to confirm the result. Blood Venous blood specimen / Unknown 09/30/2023 8:10 AM EDT 09/30/2023 2:36 PM EDT us Juarez Franco MD LAB BLOOD ORDERABL ES Final Result Performing Organization Address [facility] Co de Phone Number [facility] [address] [place] [phone] * (ABNORMAL) Lipid Panel, Standard (09/30/2023 8:10 AM EDT) Triglycerides 102 <150 mg/dL [facility] Comment:Desirable Triglyceri de: less than 150 mg/dLBorderline High Triglyceride 150-199 mg/dLHigh Triglyceride: 200-499 mg/dLVery High Triglyceride: greater than or equal to 5OO mg/dL Cholesterol 208(H) <200 mg/dL [facility] Comment:Desirable Cholestero l: less than 200 mg/dLBorderline High Cholesterol: 200-239 mg/dLHigh Cholesterol: greater than 239 mg/dL LDL Cholesterol Calculated 133(H) <100 mg/dL [facility] Comment:Desirable LDL: less than 100 mg/dLNear Optimal/Above Optimal LDL: 110- 129 mg/dLBorderline High LDL: 130-159 mg/dLHigh LDL: 160-189 mg/dLVery High LDL: greater than or equal to 190 mg/dL HDL Cholesterol 55 >40 mg/dL [facility] Comment:Desirable HDL: great er than 40 mg/dL Note: This HDL assay may give artificially low results in patients with liver disease. Blood Venous blood specimen / Unknown 09/30/2023 8:10 AM EDT 09/30/2023 2:36 PM EDT us Juarez Franco MD LAB BLOOD ORDERABL ES Final Result Performing Organization Address [facility]/ZIP Co de Phone Number [facility] [address] [place] [phone] from Last 3 Months or Most Recently Relevant to Health Maintenance Insurance [facility] C3 Care Teams Hybrid Derivatives Trader Relationship Specialty Start Date End Date Juarez Quintana MD [address] [place] [phone] PCP - General Internal Medicine 07/18/19
--- OUTSIDE RECORDS SUMMARY | 2024-04-16 09:37 | XMS_ITS | Encounter Summary ---
Author Organization [email or web address] Address [address] [facility] 7 [place] [address] Care Team Providers Care Med Admin Name Role Phone Juarez Quintana MD Primary Care Prov ider Reason for Visit * Reason Comments Med Change Request Encounter Details Date Type Department Care Team ([facility] st Contact Info) Description 04/05/2024 Refill [facility]EDS [address], [place] [phone] Juarez Quintana MD [address] [place] [address] Social History Tobacco Use Types Packs/Day Years [...] Info) Description 07/13/2024 8:30 AM EDT Telemedicine [facility] MED & [facility]EDS [address] [place] [address] Juarez Quintana MD [address] [place] [address] documented as of this encounter Visit Diagnoses Not on filedocumented in this encounter Care Teams Med Admin Relationship Specialty Start Date End Date Juarez Quintana MD [address] [place] [address] PCP - General Internal Medicine 07/18/19 documented as of this encounter
--- OUTSIDE RECORDS SUMMARY | 2024-04-16 09:37 | XMS_ITS | Encounter Summary ---
Author Organization [employer] Address [address] [facility] [address] [place] [address] Care Team Providers Care Oracle Business Intelligence Developer Name Role Phone Juarez Quintana MD Primary Care Prov ider Reason for Visit * Reason Onset Date Comments Medication Question 04/01/2024 Encounter Details Date Type Department Care Team (Late st Contact Info) Description 04/01/2024 Telephone [facility] [address] [place] [address] Juarez Quintana MD [address] [place] [address] Medication Question Social History Tobacco Use Types [...] encounter Miscellaneous Notes * Telephone Encounter - Kathy Starks RN - 04/02/2024 4:14 PM EST TC to patient to inform her that requested medication has been sent to pharmacy. Patient stated shewould follow up as needed. * Telephone Encounter - Chucky Lewis - 04/01/2024 1:08 PM EST TC from pt requesting to Get Alternate Medication for Transderm-Scop 1 MG/3DAYS patch 72 hour due to it being on back order. Pt is requesting medication Scopolamine. Contact pt at [phone] documented in this encounter Plan of Treatment Upcoming Encounters Date Type Department Care Team (Late st Contact Info) Description 07/13/2024 8:30 AM EDT Telemedicine [facility] MED [facility]ED[facility] [address] [place] [address] Juarez Quintana MD [address] [place] [address] documented as of this encounter Visit Diagnoses Not on filedocumented in this encounter Care Teams Oracle Business Intelligence Developer Relationship Specialty Start Date End Date Juarez Quintana MD [address] [place] [address] PCP - General Internal Medicine 07/18/19 documented as of this encounter
--- OUTSIDE RECORDS SUMMARY | 2024-04-16 09:37 | XMS_ITS | Encounter Summary ---
Author Organization [employer] Address [address] [facility] [address] [place] [address] Care Team Providers Care Fish And Wildlife Biologist Name Role Phone Juarez Quintana MD Primary Care Prov ider Encounter Details Date Type Department Care Team ([facility] st Contact Info) Description 04/13/2024 8:45 AM EST Telemedicine [facility] MED [facility]EDS [address], [place] [phone] Juarez Quintana MD [address] [place] [address] Joint swelling (Primary Dx); Primary hypertension Social History Tobacco [...] AM EDT documented as of this encounter Last Filed Vital Signs Vital Sign Reading Time Taken Comments Blood Pressure 137/86 04/13/2024 8:54 AM EST Pulse - - Temperature - - Respiratory Rate - - Oxygen Saturation - - Inhaled Oxygen Concentration - - Weight - - Height - - Body Mass Index - - documented in this encounter Progress Notes * Juarez Franco MD - 04/13/2024 8:45 AM EST Subjective Patient ID: Sally Flores is a 38 y.o. female who presents for No chief complaint on file.. Hypertension This is a chronic problem. The problem is controlled. Pertinent negatives include no chest pain, headaches, palpitations, peripheral edema or shortness of breath. Review of Systems Respiratory: Negative for shortness of breath. Cardiovascular: Negative for chest pain and palpitations. Neurological: Negative for headaches. Objective Physical Exam Neurological: General: No focal deficit present. Mental Status: She is oriented to person, place, and time. Psychiatric: Mood and Affect: Mood normal. Behavior: Behavior normal. Assessment/Plan Problem List Items Addressed This Visit Primary hypertension Controlled, continue current treatment regimen, keep low sodium diet and exercise as tolerated, keep bp log, target <140/90 Relevant Medications hydroCHLOROthiazide 12.5 MG tablet Other Visit Diagnoses Joint swelling - Primary Has family HX of RA, will order blood work Relevant Orders Sed Rate by Modified W[place]gren C-reactive Protein Cyclic Citrullinated Peptide (CCP) Antibody (IgG) Rheumatoid Factor SMITH Screen,IFA, with Reflex to Titer and Pattern DNA (ds) Antibody HLA-B27 Antigen documented in this encounter Plan of Treatment Upcoming Encounters Date Type Department Care Team (Jud hidalgo Contact Info) Description 07/13/2024 8:30 AM EDT Telemedicine [facility] MED [facility] PEDS [address] [place] [address] Juarez Quintana MD [address] [place] [address] Scheduled Orders Name Type Priority Associated Diagnoses Orde r Schedule Sed Rate by Modified Westergren Lab Routine Joint swelling Expected: 04/13/2024, Expires: 04/13/2025 C-reactive Protein Lab Routine Joint swelling Expected: 04/13/2024 (Approximate), Expires: 04/13/2025 Cyclic Citrullinated Peptide (CCP) Antibody (IgG) Lab Routine Joint swelling Expected: 04/13/2024 (Approximate), Expires: 04/13/2025 Rheumatoid Factor Lab Routine Joint swelling Expected: 04/13/2024, Expires: 04/13/2025 SMITH Screen,IFA, with Reflex to Titer and Pattern Lab Routine Joint swelling Expected: 04/13/2024 (Approximate), Expires: 04/13/2025 DNA (ds) Antibody Lab Routine Joint swelling Expected: 04/13/2024 (Approximate), Expires: 04/13/2025 HLA-B27 Antigen Lab Routine Joint swelling Expected: 04/13/2024 (Approximate), Expires: 04/13/2025 documented as of this encounter Visit Diagnoses Diagnosis Joint swelling- Primary Effusion of joint, site unspecified Primary hypertension Unspecified essential hypertension documented in this encounter Care Teams Fish And Wildlife Biologist Relationship Specialty Start Date End Date Juarez Quintana MD [address] [place] [address] PCP - General Internal Medicine 07/18/19 documented as of this encounter
--- OUTSIDE RECORDS SUMMARY | 2024-04-16 09:37 | XMS_ITS | Data Portability ---
Author Organization [facility], [address] [place] [address] [place] [id number] Care Team Providers Care Center Customer Service Associate Name Role Phone CARRIE SMITH Primary Care Provider Jarethabl CARRIE Haque Referring Provider Unavailable Assessment No assessment recorded. Plan of Treatment Reminders Order Date Submit Date Provider Last Modified By Organization Details Last Modified Time Details Appointments None recorded. Lab lipid panel, serum 2023 025 SLOANE Smith MD, [address] [place] [address], [id number], 5 03:03:59 urinalysis, dipstick 2023 024 [facility], [address] [place] [address], [phone], 4 10:38:44 hemoglobin A1c, QN, blood 2023 024 SLOANE Smith MD, [address] [place] [address], [id number], 4 03:02:22 CBC 2023 024 SLOANE Smith MD, [address] [place] [address], [id number], 4 03:02:22 C-reactive protein, quantitativ e, serum or plasma 2023 024 SLOANE [email or web address], [address] [place] [address], Umair B, [place], [address], 4 14:46:18 magnesium, serum or plasma 2023 024 [place] [facility], [address] [place] [address], [facility] B, [place], [address], 4 14:46:17 Referral None recorded. Procedures None recorded. Surgeries None recorded. Imaging electrocard iogram 2023 024 [email or web address] Not available 4 09:42:43 Medication Orders cyclobenzap rine 5 mg tablet 2023 024 [email or web address] [facility], [address] [place] [address], [id number], 4 15:39:41 Medrol (Collin) 4 mg tablets in a dose pack 2023 024 [facility] [address] [place] [address], [id number], 4 13:55:22 cyclobenzap rine 5 mg tablet 2023 024 [id number] [address] [place] [address], [id number], 4 13:18:17 cholecalcif crow (vitamin D3) 1,250 mcg (50,000 unit) capsule 2023 024 [id number] [address] [place] [address], [id number], 4 15:17:46 cephalexin 500 mg capsule 2022 023 [facility], [address] [place] [address], [id number], 4 10:31:44 diclofenac sodium 50 mg tablet,glenys yed release 2022 023 [id number], [place], [address], 10:31:47 Patient TargetsNo targets recorded. Patient Instructions Encounter Date Encounter Id Patient Instructions Last Modified By Organization Details Last Modified Time 01/02/2023 [id number] The problems wer e reviewed at length. The [place] medication interaction profiles and side effects were reviewed. Potential risks and benefits of the medications being prescribed by me in particular were addressed. The treatment/managem ent plan was discussed. Total time for this encounter was 45 minutes. Greater than 50% of the patient contact time was devoted to counseling and/or coordination of care. Not available 01/02/2023 13:21:48 01/22/2023 [id number] The problems wer e reviewed at length. The [place] medication interaction profiles and side effects were reviewed. Potential risks and benefits of the medications being prescribed by me in particular were addressed. The treatment/managem ent plan was discussed. Total time for this encounter was 25 minutes. Greater than 50% of the patient contact time was devoted to counseling and/or coordination of care. [email or web address] Not available 01/16/2023 10:48:43 03/18/2023 [id number] The problems wer e reviewed at length. The [place] medication interaction profiles and side effects were reviewed. Potential risks and benefits of the medications being prescribed by me in particular were addressed. The treatment/managem ent plan was discussed. Total time for this encounter was greater than 45 minutes. Greater than 50% of the patient contact time was devoted to counseling and/or coordination of care. [email or web address] Not available 03/17/2023 12:36:20 03/27/2023 [id number] The problems wer e reviewed at length. The [place] medication interaction profiles and side effects were reviewed. Potential risks and benefits of the medications being prescribed by me in particular were addressed. The treatment/managem ent plan was discussed. Total time for this encounter was 45 minutes. Greater than 50% of the patient contact time was devoted to counseling and/or coordination of care. [email or web address] Not available 03/27/2023 07:10:27 04/11/2023 [id number] The problems wer e reviewed at length. The [place] medication interaction profiles and side effects were reviewed. Potential risks and benefits of the medications being prescribed by me in particular were addressed. The treatment/managem ent plan was discussed. Total time for this encounter was 25 minutes. Greater than 50% of the patient contact time was devoted to counseling and/or coordination of care. [email or web address] Not available 04/11/2023 13:58:17 Reason for Referral None Reported. Results Created Date Observation Date Name Description Value Unit Range Abnormal Flag Note LastModifiedBy Organization Detail LastModifiedTime 03/13/19 24 03/13/2023 THYRO ID STIMU LATIN G HORMO NE thyroid stimulating hormone 0.95 mIU/m L 0.4 - 4.2 normal Not Available Carrie Smith MD [address] [place] [address], [id number], 03/13/2023 15:46:02 03/13/19 24 03/13/2023 LIPID PANEL cholesterol 175 mg/dL 0 - 200 normal Not Available Carrie Smith MD [address] [place] [address], [id number], 03/13/2023 15:56:52 03/13/19 24 03/13/2023 LIPID PANEL high density lipoprotein 58 mg/dL 45 - 900 normal Not Available Carrie Smith MD [address] [place] [address], [address], 03/13/2023 15:56:52 03/13/19 24 03/13/2023 LIPID PANEL low density lipoprotein 103 mg/dL 0 - 100 high Not Available Carrie Smith MD [address] [place] [address], [id number], 03/13/2023 15:56:52 03/13/19 24 03/13/2023 LIPID PANEL triglyceride 71 mg/dL 0 - 130 normal Not Available Carrie Smith MD [address] [place] [address], [address], 03/13/2023 15:56:52 03/13/19 24 03/13/2023 LIPID PANEL cholesterol HDL ratio 3.0 ratio 0 - 4 normal Not Available Carrie caballero MD [address] [place] [address], [address], 03/13/2023 15:56:52 03/13/19 24 03/13/2023 LIPID PANEL non HDL cholestrol 117 mg/dL 0 - 160 normal Not Available Carrie Smith MD [address] [place] [address], [address], 03/13/2023 15:56:52 03/13/19 24 03/13/2023 COMPR EHENS BECKY METAB OLIC PANEL sodium 139 mmol/ L 136 - 145 normal Not Available Carrie Smith MD [address] [place] [address], [address], 03/13/2023 15:56:54 03/13/19 24 03/13/2023 COMPR EHENS BECKY METAB OLIC PANEL potassium 3.8 mmol/ L 3.5 - 5.3 normal Not Available Carrie Smith MD [address] [place] [address], [address], 03/13/2023 15:56:54 03/13/19 24 03/13/2023 COMPR EHENS BECKY METAB OLIC PANEL chloride 99.8 mmol/ L 98 - 107 normal Not Available Carrie Smith MD [address] [place] [address], [address], 03/13/2023 15:56:54 03/13/19 24 03/13/2023 COMPR EHENS BECKY METAB OLIC PANEL carbon dioxide 30.4 mmol/ L 20 - 31 normal Not Available Carrie Smith MD [address] [place] [address], [address], 03/13/2023 15:56:54 03/13/19 24 03/13/2023 COMPR EHENS BECKY METAB OLIC PANEL anion gap 12.6 ratio 3 - 17 normal Not Available Carrie Vazquez MD [address] [place] [address], [address], 03/13/2023 15:56:54 03/13/19 24 03/13/2023 COMPR EHENS BECKY METAB OLIC PANEL glucose 100 mg/dL 70 - 99 high Not Available Carrie Smith MD [address] [place] [address], [address], 03/13/2023 15:56:54 03/13/19 24 03/13/2023 COMPR EHENS BECKY METAB OLIC PANEL blood urea nitrogen 7.5 mg/dL 6 - 20 normal Not Available Carrie caballero MD [address] [place] [address], [address], 03/13/2023 15:56:54 03/13/19 24 03/13/2023 COMPR EHENS BECKY METAB OLIC PANEL creatinine 0.7 mg/dL 0.6 - 1.3 normal Not Available Carrie Smith MD [address] [place] [address], [address], 03/13/2023 15:56:54 03/13/19 24 03/13/2023 COMPR EHENS BECKY METAB OLIC PANEL BUN creatinine ratio 11 ratio 5 - 20 normal Not Available Carrie caballero MD [address] [place] [address], [address], 03/13/2023 15:56:54 03/13/19 24 03/13/2023 COMPR EHENS BECKY METAB OLIC PANEL calcium 10.2 mg/dL 8.4 - 10.2 normal Not Available Carrie Smith MD [address] [place] [address], [address], 03/13/2023 15:56:54 03/13/19 24 03/13/2023 COMPR EHENS BECKY METAB OLIC PANEL total protein 7.8 g/dL 6.4 - 8.3 normal Not Available Carrie Smith MD [address] [place] [address], [address], 03/13/2023 15:56:54 03/13/19 24 03/13/2023 COMPR EHENS BECKY METAB OLIC PANEL albumin 4.24 g/L 3.4 - 4.8 normal Not Available Carrie Smith MD [address] [place] [address], [address], 03/13/2023 15:56:54 03/13/19 24 03/13/2023 COMPR EHENS BECKY METAB OLIC PANEL alkaline phosphatase 58 U/L 0 - 100 normal Not Available Carrie Smith MD [address] [place] [address], [address], 03/13/2023 15:56:54 03/13/19 24 03/13/2023 COMPR EHENS BECKY METAB OLIC PANEL alanine aminotransfe rase 13 U/L 7 - 40 normal Not Available Carrie caballero MD [address] [place] [address], [address], 03/13/2023 15:56:54 03/13/19 24 03/13/2023 COMPR EHENS BECKY METAB OLIC PANEL aspartate aminotransfe rase 20 U/L 8 - 33 normal Not Available Carrie caballero MD [address] [place] [address], [address], 03/13/2023 15:56:54 03/13/19 24 03/13/2023 COMPR EHENS BECKY METAB OLIC PANEL total bilirubin 0.6 mg/dL 0.3 - 1.2 normal Not Available Carrie Smith MD [address] [place] [address], [address], 03/13/2023 15:56:54 03/13/19 24 03/13/2023 COMPR EHENS BECKY METAB OLIC PANEL eGFR (CKD-epi) 114 mL/mi n/1.7 3m*2 60 - 999 normal Not Available Carrie Smith MD [address] [place] [address], [address], 03/13/2023 15:56:54 03/13/19 24 03/13/2023 FREE THYRO XINE free thyroxine 1.10 NG/dL 0.59 - 2.48 normal Not Available Carrie Smith MD [address] [place] [address], [address], 03/13/2023 16:06:44 03/18/19 24 03/18/2023 urina lysis , dipst ick leukocytes neg Not Available [facility] [address] [place] [address], [phone], 03/18/2023 10:21:30 03/18/19 24 03/18/2023 urina lysis , dipst ick nitrate neg Not Available [facility] [address] [place], [address], 03/18/2023 10:21:30 03/18/19 24 03/18/2023 urina lysis , dipst ick urobilinogen 0.2 Not Available [facility] [address] [place], [address], 03/18/2023 10:21:30 03/18/19 24 03/18/2023 urina lysis , dipst ick protein neg Not Available [facility] [address] [place] [address], [phone], 03/18/2023 10:21:30 03/18/19 24 03/18/2023 urina lysis , dipst ick pH 6.0 Not Available [facility] [address] [place], [address], 03/18/2023 10:21:30 03/18/19 24 03/18/2023 urina lysis , dipst ick blood neg Not Available [facility] [address] [place] [address], [phone], 03/18/2023 10:21:30 03/18/19 24 03/18/2023 urina lysis , dipst ick specific gravity 1.015 Not Available [facility] [address] [place] [address], [address], 03/18/2023 10:21:30 03/18/19 24 03/18/2023 urina lysis , dipst ick ketone neg Not Available [facility] [address] [place] [address], [address], 03/18/2023 10:21:30 03/18/19 24 03/18/2023 urina lysis , dipst ick bilrubin neg Not Available [facility] [address] [place] [address], [address], 03/18/2023 10:21:30 03/18/19 24 03/18/2023 urina lysis , dipst ick glucose neg Not Available [facility] [address] [place], [address], 03/18/2023 10:21:30 03/27/19 24 03/28/2023 MAGNE SIUM magnesium 2.0 mg/dL 1.5-2. 5 normal Not Available [email or web address] [address], [address], 03/28/2023 14:46:17 03/27/19 24 03/28/2023 C-CARINE CTIVE PROTE IN C-reactive protein 0.9 mg/L <8.0 normal Not Available [facility] [address], [address], 03/28/2023 14:46:18 12/19/19 23 12/12/2022 wilmer r monit or No observ ation record ed. [email or web address] Not Available 2022 13:11:55 01/03/20 23 06/26/2022 imagi ng/di agnos tic resul t No observ ation record ed. [email or web address] [facility] [address] [place], [address], 01/02/2023 13:11:55 03/05/19 24 09/18/2022 NM, thyro id scan No observ ation record ed. [email or web address] Not Available 2023 10:03:22 03/18/19 24 03/18/2023 elect esau diogr am No observ ation record ed. [email or web address] Not Available 2023 16:13:40 03/27/19 24 03/27/2023 US, thyro id No observ ation record ed. [address], [address], 03/28/2023 12:44:00 03/27/19 24 03/27/2023 US, thyro id No observ ation record ed. [address], [address], 03/28/2023 12:42:48 04/01/19 24 03/27/2023 US, thyro id No observ ation record ed. [address], [address], 04/01/2023 08:16:43 04/01/19 24 03/27/2023 US, thyro id No observ ation record ed. [address], [address], 04/01/2023 12:26:50 04/03/19 24 03/27/2023 elect esau aguilar am No observ ation record ed. [email or web address] Not Available 2023 09:58:46 05/19/19 24 05/19/2023 fine needl e aspir ation , thyro id (PROC ) No observ ation record ed. [address], [address], 05/19/2023 13:05:35 Result Notes None recorded. Problems Name Problem SNOMED Code Status Onset Date Resolution Date Notes Provider Name and Address Organization Details Recorded Time Essential hypertension 35222469 Active 2022 Jazmin gaona [facility] 13:17:30 Problem Notes None recorded. Procedures Surgical History Date Name Laterality Status Provider Name and Address Organization Details Recorded Time section completed Jazmin Corbett [facility] 07/16/2022 13:19:45 Breast reduction completed Jazmin Corbett [facility] 07/16/2022 13:20:01 tubal ligation completed Jazminjanae Corbett [facility] 07/16/2022 13:20:11 Imaging Results Imaging Date Name Status LastModified by Organization Details LastModified Time 12/12/2022 holter monitor [place] [id number] Informatio n not available 01/02/2023 13:11:55 06/26/2022 imaging/diagnostic result completed [address] [facility] [address] [place], [address], 01/02/2023 13:11:55 09/18/2022 NM[email or web address] available 03/18/2023 10:03:22 03/18/2023 electrocardiogram completed [email or web address] Informa tion not available 03/27/2023 16:13:40 03/27/2023 US, thyroid completed [facility] [address], [address], 03/28/2023 12:44:00 03/27/2023 [facility] [address], [address], 03/28/2023 12:42:48 03/27/2023 [email or web address] [address] [place] [address], [address], 04/01/2023 08:16:43 03/27/2023 US, thyroid completed pjillian [facility] [address] [place] [address], [address], 04/01/2023 12:26:50 03/27/2023 electrocardiogram completed [email or web address] Informa tion not available 04/03/2023 09:58:46 05/19/2023 fine needle aspiration, thyroid (PROC) completed [address], [address], 05/19/2023 13:05:35 Procedure Notes None recorded. Medical Equipment None Reported. Allergies No known drug allergies Medications Name Sig Start Date Stop Date Status Note LastModified by Organization Details LastModified Time ibuprofen 800 mg tablet TAKE 1 TABLET BY MOUTH EVERY 8 HOURS DIRECTED active Not Available Not Available No t Available fluconazole 150 mg tablet TAKE 1 TABLET BY MOUTH 03/18 completed Not Available Not Available Not Available valsartan 80 mg tablet TAKE 1 TABLET EVERY DAY BY ORAL ROUTE IN THE MORNING. active Not Available Not Available No t Available amoxicillin 500 mg tablet 08/15 completed Not Available Not Available Not Available cephalexin 500 mg capsule TAKE 1 CAPSULE BY MOUTH THREE TIMES A DAY FOR 7 DAYS 03/18 completed Not Available Not Available Not Available lidocaine 5 % topical patch 1 PATCHES TOPICAL DAILY,X7 DAYS,INST R:REMOVE PATCHES AFTER 12 HOURS active Not Available Not Available No t Available diclofenac sodium 50 mg tablet,glenys yed release TAKE 1 TABLET BY MOUTH TWICE A DAY NEEDED FOR 7 DAYS 03/18 completed Not Available Not Available Not Available clobetasol 0.05 % topical ointment APPLY THIN COAT TO AFFECTED AREA TWICE A DAY 03/18 completed Not Available Not Available Not Available ibuprofen 600 mg tablet 03/18 completed Not Available Not Available Not Available scopolamine 1 mg over 3 days transdermal patch Apply 1 patch as needed by transderm al route. 03/18 completed Not Available Not Available Not Available methylpredn isolone 4 mg tablets in a dose pack Take 1 dose pk by oral route as directed, for inflammat ion. 04/11 completed Not Available Not Available Not Available cyclobenzap rine 5 mg tablet TAKE 1 TABLET BY MOUTH THREE TIMES A DAY NEEDED FOR NECK PAIN active Not Available Not Available No t Available rosuvastati n 5 mg tablet TAKE 1 TABLET EVERY DAY BY ORAL ROUTE IN THE MORNING. 2023 active Not Available Not Available Not Avai lable nitrofurant oin monohydrate /macrocryst als 100 mg capsule TAKE 1 CAPSULE BY MOUTH EVERY 12 HOURS FOR 7 DAYS 03/18 completed Not Available Not Available Not Available hydrochloro thiazide 12.5 mg tablet TAKE 1 TABLET EVERY DAY BY ORAL ROUTE IN THE MORNING. 2023 active Not Available Not Available Not Avai lable cholecalcif crow (vitamin D3) 1,250 mcg (50,000 unit) capsule TAKE 1 CAPSULE EVERY WEEK BY ORAL ROUTE DIRECTED, FOR VITAMIN D DEFFICIEN CY. active Not Available Not Available No t Available Caltrate plus D 600 mg (carbonate) -20 mcg (800 unit) chewable tablet Take 1 tablet twice a day by oral route. 03/18 completed Not Available Not Available Not Available Vitals Date Recorded Body height Body mass index (BMI) Body weight Systolic blood pressure Diastolic blood pressure Provider Name and Address Organization Details Last Updated DateTime 01/02/2023 158.75 cm 32 kg/m2 00952.72 g 118 mm[Hg] 70 mm[Hg] Yamileth Cisse [facility] 3 13:06:29 Date Recorded Body height Body mass index (BMI) Body weight Systolic blood pressure Diastolic blood pressure Provider Name and Address Organization Details Last Updated DateTime 01/22/2023 158.75 cm 32.1 kg/m2 05433.88 g 115 mm[Hg] 84 mm[Hg] Steffi Alicia [facility] 3 13:19:51 Date Recorded Body height Body mass index (BMI) Body weight Systolic blood pressure Diastolic blood pressure Provider Name and Address Organization Details Last Updated DateTime 03/18/2023 158.75 cm 31.6 kg/m2 47305.82 g 122 mm[Hg] 82 mm[Hg] Elizabeth Dutta [facility] 4 10:10:24 Date Recorded Body height Body mass index (BMI) Body weight Systolic blood pressure Diastolic blood pressure Provider Name and Address Organization Details Last Updated DateTime 03/27/2023 158.75 cm 31.3 kg/m2 44544.35 g 128 mm[Hg] 84 mm[Hg] Elizabeth Dutta [facility] 4 13:06:40 Date Recorded Body height Body mass index (BMI) Body weight Systolic blood pressure Diastolic blood pressure Provider Name and Address Organization Details Last Updated DateTime 04/11/2023 158.75 cm 31.9 kg/m2 40198.85 g 126 mm[Hg] 82 mm[Hg] Elizabeth Dutta [facility] 4 13:27:05 Social History Question Answer Notes LastModified by Organizat ion Details LastModified Time Tobacco Smoking Status Never Smoker Jazmin gaona, [facility] 07/16/2022 13:18:34 Do You Have An Advance Directive? No Information not available 07/16/2022 What Is Your Level Of Alcohol Consumption? Occasional Information not available 07/16/2022 Are You Blind Or Do You Have Difficulty Seeing? No Information not available 07/16/2022 What Is Your Level Of Caffeine Consumption? Occasional Information not available 07/16/2022 In The 14 Days Before Symptom Onset, Have You Had Close Contact With A Laboratory-confi rmed COVID-19 While That Case Was Ill? No Information not available 07/16/2022 In The 14 Days Before Symptom Onset, Have You Had Close Contact With A Person Who Is Under Investigation For COVID-19 While That Person Was Ill? No Information not available 07/16/2022 Have You Been To An Area Known To Be High Risk For COVID-19? No Information not available 07/16/2022 Are You Deaf Or Do You Have Serious Difficulty Hearing? No Information not available 07/16/2022 What Type Of Diet Are You Following? REGULAR Information not available 07/16/2022 What Is The Highest Grade Or Level Of School You Have Completed Or The Highest Degree You Have Received? 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 560 Information not available 07/16/2022 Are There Any Guns Present In Your Home? No Information not available 07/16/2022 What Was The Date Of Your Most Recent Tobacco Screening? 01/02/2023 Information not available 01/02/2023 What Is Your Relationship Status? Single 2 Children Information not available 07/16/2022 Do You Use Your Seat Belt Or Car Seat Routinely? Yes Information not available 07/16/2022 Do You Have Smoke And Carbon Monoxide Detectors In Your Home? Yes Information not available 07/16/2022 Do You Feel Stressed (tense, Restless, Nervous, Or Anxious, Or Unable To Sleep At Night)? [id number] Information not available 07/16/2022 Do You Use Any Illicit Or Recreational Drugs? No Information not available 07/16/2022 Do You Use Sunscreen Routinely? Yes Information not available 07/16/2022 Do You Or Have You Ever Used Any Other Forms Of Tobacco Or Nicotine? No Information not available 07/16/2022 Sex: Female Functional Status Question Answer Note LastModified by Organizat ion Details LastModified Time Do you have difficulty walking or climbing stairs? No Information not available 07/16/2022 Do you have difficulty doing errands alone? No Information not available 07/16/2022 Do you have difficulty dressing or bathing? No Information not available 07/16/2022 What is your exercise level? Moderate Information not available 07/16/2022 Mental Status Question Answer Note LastModified by Organization D etails LastModified Time Do you have difficulty concentrating, remembering or making decisions? No Information no t available 07/16/2022 Family History Relationship Description Onset Age of this Age Resolved Age Notes LastModified by Organization Details LastModified Time Father No current problems or disability 63 [email or web address] Not available 13:17:44 Mother No current problems or disability 57 Brain Aneury sm Not available 07/16/2022 13:17:59 Notes:has 1 brother & 1 sist er a&w Medical History Condition Response hypothyroidism N HIV or AIDS N congenital heart disease N gout N hyperthyroidism N asthma N heart arrhythmia N ulcers N deep vein thrombophlebitis N COPD N claustrophobic N coronary artery disease N aortic aneurysm N bleeding disorder N diabetes N kidney stones N gastrintestinal disease N peripheral vascular disease N hiatal hernia N carotid disease N diverticulitis N congestive heart failure N sleep disorder N other N heart murmur N anxiety disorder N hypercholesterolemia N headache N has pacemaker N no past medical problems reported N back pain N cancer N arthritis N tuberculosis N organ transplant N depression N osteoporosis N kidney disease N heart attack (UT) N blood clots N liver disease N arrhythmia N thyroid disease N GERD/reflux N genitourinary disease N fibromyalgia N CVA N chronic obstructive pulmonary disease N hypertension Y urinary tract infection N neurologic disorder N hyperlipdemia Y hematologic disease N congestive heart disease N pulmonary embolism N dialysis N stroke N Gynecological HistoryNo gynecological history recorded. Obstetrics History GPAL:G 0 P 0 0 0 0 Past Encounters Encounter ID Performer Location Encounter Start Date Encounter Closed Date Diagnosis/Indication Diagnosis SNOMED-CT Code Diagnosis ICD10 Code Diagnosis Note [id number] Carrie Smith MD [address] [facility] [address] [place] [address] 07/16/2022 12:45:34 07/16/2022 14:32:01 Electrocardiogram abnormal [id number] R94.31 Pt has significan t risk factors for cad. Pt is at high risk of a cardiac event. Stress echo and echo will be performed. 07/16/22 ECG: nsr early repolariza tion wnl nptfc. Chest pain 98422989 R07. 9 Pt has significan t risk factors for cad. Pt is at high risk of a cardiac event. Stress echo and echo will be performed. Dyspnea 760507206 R06.00 Pt has significan t risk factors for cad. Pt is at high risk of a cardiac event. Stress echo and echo will be performed. Bruit 30165844 R09.89 Carotid us will be performed. Abd Aortic us will be performed. Essential hypertension 67574943 I10 07/16/22 BP 128/90, 130/90. Diet, exercise and wt loss recommende d. Continue hctz 12.5mg qam. Add valsartan 80mg qam. Hyperlipidemia 97730289 E78.5 07/08/22 Tchol 223, HDL 62, TG 65, LDL 148, TC/HDL= 3.6. Diet, exercise and wt loss recommende d. Add rosuvastat in 5mg qd.(Pt has had her tubes tied) Morbid obesity 919806317 E66.01 07/16/22 Wt 170lbs, BMI 30.6. Diet, exercise and wt loss recommende d. Screening for malignant neoplasm of cervix 504925156 Z12.4 Pap Smear due. Screening mammography 24 303745 Z12.31 32yo benign Screening for malignant neoplasm of colon 195424396 Z12.11 IFOB Screening for disorder 636710995 Z13.9 07/08/22 bun 6.8, creat .8, k 4.1, gfr 98, hct 41.10, hgb 13.2, tsh .63, t4 1.95, Vit d 18.4, fbs 96. Adult heal th examination 805329572 Z00.00 H & P due. Body mass index 30+ - obesity 681251996 Z68.30 07/16/22 Wt 170lbs, BMI 30.6. Diet, exercise and wt loss recommende d. Family his tory of Hypertension 658001233 Z82.49 F HTN. Family his tory of aneurysm of blood vessel of brain [id number] 9022680 Z82.49 M - Brain aneurysm. Pt had a CT brain 06/26/22 in [facility] - pt to get us result. Anxiety 35453031 F41.9 Stable at this time. Heart murmur 06850336 R0 1.1 Echo will be performed. Leukopenia 90680070 D72. 819 07/08/22 wbc 3.1. [id number] Carrie Smith MD [address] [facility] [address] [place] [phone] 07/25/2022 09:36:38 07/25/2022 09:55:09 Electrocardiogram abnormal 832979779 R94.31 Pt has significan t risk factors for cad. Pt is at high risk of a cardiac event. Stress echo scheduled for 08/09/22. Echo scheduled for 08/03/22. 07/16/22 ECG: nsr early repolariza tion wnl nptfc. Chest pain 78025558 R07. 9 Pt has significan t risk factors for cad. Pt is at high risk of a cardiac event. Stress echo scheduled for 08/09/22. Echo scheduled for 08/03/22. Dyspnea 752736128 R06.00 Pt has significan t risk factors for cad. Pt is at high risk of a cardiac event. Stress echo scheduled for 08/09/22. Echo scheduled for 08/03/22. Heart murmur 26897751 R0 1.1 Echo scheduled for 08/03/22. Bruit 64063692 R09.89 Carotid us scheduled for 09/04/22. Abd Aortic us scheduled for 08/02/22. Essential hypertension 71782041 I10 07/16/22 BP 128/90, 130/90. Diet, exercise and wt loss recommende d. Continue hctz 12.5mg qam. Add valsartan 80mg qam.07/25/22 BP 110/70, 112/70. Continue hctz 12.5mg, valsartan 80mg qam. Diet, exercise, and weight loss recommende d. Hyperlipidemia 17874947 E78.5 07/08/22 Tchol 223, HDL 62, TG 65, LDL 148, TC/HDL= 3.6. Diet, exercise and wt loss recommende d. Add rosuvastat in 5mg qd.(Pt has had her tubes tied) Leukopenia 11380416 D72. 819 07/08/22 wbc 3.1. Anxiety 11473617 F41.9 Stable at this time. Family his tory of aneurysm of blood vessel of brain [id number] 3580128 Z82.49 M - Brain aneurysm. Pt had a CT brain 06/26/22 in [facility] - to get us result. Family his tory of Hypertension 380526603 Z82.49 F HTN. Morbid obesity 961295031 E66.01 07/16/22 Wt 170lbs, BMI 30.6. Diet, exercise and wt loss recommende d. Body mass index 30+ - obesity 553246226 Z68.30 07/16/22 Wt 170lbs, BMI 30.6. Diet, exercise and wt loss recommende d. Screening for malignant neoplasm of cervix 775700634 Z12.4 Pap Smear due. Screening mammography 524876 Z12.31 32yo benign Screening for malignant neoplasm of colon 168204043 Z12.11 IFOB Screening for disorder 974003207 Z13.9 07/08/22 bun 6.8, creat .8, k 4.1, gfr 98, hct 41.10, hgb 13.2, tsh .63, t4 1.95, Vit d 18.4, fbs 96. Adult heal th examination 224080225 Z00.00 H & P due. PAP History of tubal ligation 435891583 Z98.51 Per patient. Vitamin D deficiency 347 25860 E55.9 07/08/22 vitamin D was 18.4, recommend supplement ation at this time. [id number] Carrie Smith MD [address] [facility] [address] [place] [address] 08/15/2022 09:00:05 08/15/2022 09:29:24 Electrocardiogram abnormal 714023664 R94.31 Pt has significan t risk factors for cad. Pt is at high risk of a cardiac event. Stress echo from 08/14/22 normal. Echo from 08/03/22 showed est ef 60%, mild tr, trace mr, trace-mild pi, and aa 2.5 cm. 07/16/22 ECG: nsr early repolariza tion wnl nptfc. Chest pain 22060969 R07. 9 Pt has significan t risk factors for cad. Pt is at high risk of a cardiac event. Stress echo from 08/14/22 normal. Echo from 08/03/22 showed est ef 60%, mild tr, trace mr, trace-mild pi, and aa 2.5 cm. Dyspnea 022266645 R06.00 Pt has significan t risk factors for cad. Pt is at high risk of a cardiac event. Stress echo on 08/14/22 normal. Echo from 08/03/22 showed est ef 60%, mild tr, trace mr, trace-mild pi, aa 2.5 cm. Heart murmur 67882677 R0 1.1 Echo from 08/03/22 showed est ef 60%, mild tr, trace mr, trace-mild pi, aa 2.5 cm. Bruit 43391392 R09.89 Carotid ultrasound from 08/02/22 normal. AAA us from 08/02/22 normal. Essential hypertension 29281078 I10 07/16/22 BP 128/90, 130/90. Diet, exercise and wt loss recommende d. Continue hctz 12.5mg qam. Add valsartan 80mg qam.07/25/22 BP 110/70, 112/70. Continue hctz 12.5mg, valsartan 80mg qam. Diet, exercise, and weight loss recommende d. Hyperlipidemia 31033004 E78.5 07/08/22 Tchol 223, HDL 62, TG 65, LDL 148, TC/HDL= 3.6. Diet, exercise and wt loss recommende d. Add rosuvastat in 5mg qd.(Pt has had her tubes tied) tchol 161, hdl 48, tg 111, ldl 91, tc/hdl=3.4 . Continue rosuvastat in 5mg qd. Leukopenia 52477576 D72. 819 07/08/22 wbc 3.1. Anxiety 08725607 F41.9 Stable at this time. History of tubal ligation 256319525 Z98.51 Per patient. Vitamin D deficiency 347 49228 E55.9 07/08/22 vitamin D was 18.4, recommend supplement ation at this time. vitamin d 24.2. Recommend D3 2,000IU daily. Family his tory of aneurysm of blood vessel of brain [id number] 7442595 Z82.49 M - Brain aneurysm. Pt had a CT brain 06/26/22 in [facility] - pt to get us result. Family his tory of Hypertension 420898450 Z82.49 F HTN. Morbid obesity 920443665 E66.01 07/16/22 Wt 170lbs, BMI 30.6. Diet, exercise and wt loss recommende d. Body mass index 30+ - obesity 019355803 Z68.30 07/16/22 Wt 170lbs, BMI 30.6. Diet, exercise and wt loss recommende d. Screening for malignant neoplasm of cervix 784746085 Z12.4 Pap obtained 08/15/22. Specimen sent for analysis. Screening mammography 24 068798 Z12.31 32yo benign Screening for malignant neoplasm of colon 881869782 Z12.11 IFOB Screening for disorder 432510858 Z13.9 07/08/22 bun 6.8, creat .8, k 4.1, gfr 98, hct 41.10, hgb 13.2, tsh .63, t4 1.95, Vit d 18.4, fbs 96. Adult heal th examination 482283605 Z00.00 H & P due. PAP obtained 08/15/22. Glucose le lexis outside reference range 540975263 R73.09 08/09/22 glucose 104. Gynecologi c examination 24968530 Z01.419 08/15/22 - LMP 08/12/22. Patient reports flow has been heavy since her tubes are tied. Patient does not remember the date of her last PAP. She denies discharge and does not want STD testing. Patient just finishing period, scant red-colore d drainage from cervix noted. Specimen taken for HPV testing. History of reduction of breast 439460846 Z98.890 Patient previous had breast reduction surgery. [id number] Carrie Smith MD [address] [facility] [address] [place] [address] 11/06/2022 09:39:09 11/06/2022 10:09:13 Electrocardiogram abnormal 079283822 R94.31 Pt has significan t risk factors for cad. Pt is at high risk of a cardiac event. Stress echo from 08/14/22 normal. Echo from 08/03/22 showed est ef 60%, mild tr, trace mr, trace-mild pi, and aa 2.5 cm. 07/16/22 ECG: nsr early repolariza tion wnl nptfc. Chest pain 33068146 R07. 9 Pt has significan t risk factors for cad. Pt is at high risk of a cardiac event. Stress echo from 08/14/22 normal. Echo from 08/03/22 showed est ef 60%, mild tr, trace mr, trace-mild pi, and aa 2.5 cm. Dyspnea 447788538 R06.00 Pt has significan t risk factors for cad. Pt is at high risk of a cardiac event. Stress echo on 08/14/22 normal. Echo from 08/03/22 showed est ef 60%, mild tr, trace mr, trace-mild pi, aa 2.5 cm. Heart murmur 86623544 R0 1.1 Echo from 08/03/22 showed est ef 60%, mild tr, trace mr, trace-mild pi, aa 2.5 cm. Bruit 40966742 R09.89 Carotid ultrasound from 08/02/22 normal. Carotid u/s from 09/12/22 was normal plaque free. Recommend repeat in 3 years. Incidental finding of left thyroid nodule. AAA us from 08/02/22 normal. Essential hypertension 22222439 I10 07/16/22 BP 128/90, 130/90. Diet, exercise and wt loss recommende d. Continue hctz 12.5mg qam. Add valsartan 80mg qam.07/25/22 BP 110/70, 112/70. Continue hctz 12.5mg, valsartan 80mg qam. Diet, exercise, and weight loss recommende d.11/06/22 BP 117/64, 115/68. Continue hctz 12.5mg, valsartan 80mg qam. Diet, exercise, and weight loss recommende d. Hyperlipidemia 55592481 E78.5 07/08/22 Tchol 223, HDL 62, TG 65, LDL 148, TC/HDL= 3.6. Diet, exercise and wt loss recommende d. Add rosuvastat in 5mg qd.(Pt has had her tubes tied) tchol 161, hdl 48, tg 111, ldl 91, tc/hdl=3.4 . Continue rosuvastat in 5mg qd. Leukopenia 60526570 D72. 819 07/08/22 wbc 3.1. Anxiety 79350520 F41.9 Stable at this time. History of tubal ligation 179587340 Z98.51 Per patient. Glucose le lexis outside reference range 275301578 R73.09 08/09/22 glucose 104. Vitamin D deficiency 347 56072 E55.9 07/08/22 vitamin D was 18.4, recommend supplement ation at this time. vitamin d 24.2. Recommend D3 2,000IU daily. Family his tory of aneurysm of blood vessel of brain 1499418875 5769265 Z82.49 M - Brain aneurysm. Pt had a CT brain 06/26/22 in [facility] - pt to get us result. Family his tory of Hypertension 242284947 Z82.49 F HTN. Morbid obesity 918929664 E66.01 07/16/22 Wt 170lbs, BMI 30.6. Diet, exercise and wt loss recommende d. Body mass index 30+ - obesity 151600229 Z68.30 5/30/23 Wt 170lbs, BMI 30.6. Diet, exercise and wt loss recommende d. History of reduction of breast 953504350 Z98.890 Patient previous had breast reduction surgery. Gynecologi c examination 93287650 Z01.419 08/15/22 - LMP 08/12/22. Patient reports flow has been heavy since her tubes are tied. Patient does not remember the date of her last PAP. She denies discharge and does not want STD testing. Patient just finishing period, scant red-colore d drainage from cervix noted. Pap obtained, specimen taken for HPV testing. Patient states that since she changed soaps she has had severe vulvar itching and burning, denies vaginal discharge. Denies new partners. LMP 10/18/22. External genitalia without lesions. Cervical discharge thick and white. Start clobetasol topical for external itching. Fluconazol e 150mg once for yeast infection. Vaginitis panel sent. Screening for malignant neoplasm of cervix 863882409 Z12.4 Pap obtained 08/15/22. Specimen sent for analysis. Screening mammography 24 545293 Z12.31 32yo benign Screening for malignant neoplasm of colon 118956941 Z12.11 IFOB Screening for disorder 862440236 Z13.9 07/08/22 bun 6.8, creat .8, k 4.1, gfr 98, hct 41.10, hgb 13.2, tsh .63, t4 1.95, Vit d 18.4, fbs 96. Adult heal th examination 934635466 Z00.00 H & P due. PAP 08/15/22-nl Thyroid nodule 082520455 E04.1 09/18/22 Thyroid scan reveals possible hypofuncti oning nodule. Follow up thyroid u/s ordered. Pruritus of vulva 675333 00 L29.2 11/06/22 Complainin g of external vulvar itching. No lesions on exam. [employer] exam reveals mod amount of thick white vaginal discharge. Start clobetasol 0.05% topical bid for symtpom relief. Patient instructed to avoid shaving the area to reduce irritation . Dysuria 62498189 R30.0 11/06/22 u/a reveals trace leuks. send for culture. Start nitrofuran toin 100mg bid for 7 days. Urinary tr act infectious disease 25594529 N39.0 11/06/22 u/a reveals trace leuks. send for culture. Start nitrofuran toin 100mg bid for 7 days. Vaginal discharge 786784 006 N89.8 11/06/22 Thick white vaginal discharge on pelvic exam. Start one time dose fluconazol e 150mg. Vaginitis panel ordered. [id number] Carrie Smith MD [address] [facility] [address] [place] [address] 12/12/2022 09:04:31 12/12/2022 09:29:03 Electrocardiogram abnormal 297983534 R94.31 Pt has significan t risk factors for cad. Pt is at high risk of a cardiac event. Stress echo from 08/14/22 normal. Echo from 08/03/22 showed est ef 60%, mild tr, trace mr, trace-mild pi, and aa 2.5 cm. 07/16/22 ECG: nsr early repolariza tion wnl nptfc. Chest pain 93685106 R07. 9 Pt has significan t risk factors for cad. Pt is at high risk of a cardiac event. Stress echo from 08/14/22 normal. Echo from 08/03/22 showed est ef 60%, mild tr, trace mr, trace-mild pi, and aa 2.5 cm. Dyspnea 399439088 R06.00 Pt has significan t risk factors for cad. Pt is at high risk of a cardiac event. Stress echo on 08/14/22 normal. Echo from 08/03/22 showed est ef 60%, mild tr, trace mr, trace-mild pi, aa 2.5 cm. Heart murmur 55291997 R0 1.1 Echo from 08/03/22 showed est ef 60%, mild tr, trace mr, trace-mild pi, aa 2.5 cm. Bruit 10770931 R09.89 Carotid ultrasound from 08/02/22 normal. AAA us from 08/02/22 normal. Essential hypertension 63087041 I10 07/16/22 BP 128/90, 130/90. Diet, exercise and wt loss recommende d. Continue hctz 12.5mg qam. Add valsartan 80mg qam.07/25/22 BP 110/70, 112/70. Continue hctz 12.5mg, valsartan 80mg qam. Diet, exercise, and weight loss recommende d. 12/12/22 BP 114/73. Continue hctz 12.5mg, valsartan 80mg qam. Diet, exercise, and weight loss recommende d. Hyperlipidemia 98003317 E78.5 07/08/22 Tchol 223, HDL 62, TG 65, LDL 148, TC/HDL= 3.6. Diet, exercise and wt loss recommende d. Add rosuvastat in 5mg qd.(Pt has had her tubes tied) tchol 161, hdl 48, tg 111, ldl 91, tc/hdl=3.4 . Continue rosuvastat in 5mg qd. 3 Pt did not get labs drawn. Leukopenia 98273799 D72. 819 07/08/22 wbc 3.1. Pt did not get labs drawn. Anxiety 34070014 F41.9 12/12/22 Pt ordered for labs. Pt reports experienci ng palpitatio ns at night, on average 3 nights per week. She reports that these are sustained palpitatio ns for a few minutes. Pt believes that this is due to anxiety but wants to be sure there is no underlying cause. History of tubal ligation 768743083 Z98.51 Per patient. Glucose le lexis outside reference range 750295212 R73.09 08/09/22 glucose 104. Vitamin D deficiency 347 39541 E55.9 07/08/22 vitamin D was 18.4, recommend supplement ation at this time. vitamin d 24.2. Recommend D3 2,000IU daily. Family his tory of aneurysm of blood vessel of brain [id number] 8899243 Z82.49 M - Brain aneurysm. Pt had a CT brain 06/26/22 in [facility] - pt to get us result. Family his tory of Hypertension 525839541 Z82.49 F HTN. Morbid obesity 221972237 E66.01 07/16/22 Wt 170lbs, BMI 30.6. Diet, exercise and wt loss recommende d. Body mass index 30+ - obesity 443541718 Z68.30 07/16/22 Wt 170lbs, BMI 30.6. Diet, exercise and wt loss recommende d. History of reduction of breast 796298688 Z98.890 Patient previous had breast reduction surgery. Gynecologi c examination 04339617 Z01.419 08/15/22 - LMP 08/12/22. Patient reports flow has been heavy since her tubes are tied. Patient does not remember the date of her last PAP. She denies discharge and does not want STD testing. Patient just finishing period, scant red-colore d drainage from cervix noted. Specimen taken for HPV testing. Specimen benign. Screening for malignant neoplasm of cervix 905336655 Z12.4 Pap obtained 08/15/22, normal. Screening mammography 24 552461 Z12.31 32yo benign Screening for malignant neoplasm of colon 011280980 Z12.11 IFOB Screening for disorder 691928464 Z13.9 07/08/22 bun 6.8, creat .8, k 4.1, gfr 98, hct 41.10, hgb 13.2, tsh .63, t4 1.95, Vit d 18.4, fbs 96. Adult heal th examination 274762131 Z00.00 H & P scheduled. Palpitations 69407177 R0 0.2 12/12/22 Pt ordered for labs. Pt reports experienci ng palpitatio ns at night, on average 3 nights per week. She reports that these are sustained palpitatio ns for a few minutes. Pt believes that this is due to anxiety but wants to be sure there is no underlying cause. Holter applied this visit. Discussed emergent symptoms with patient. [id number] Carrie Smith MD [address] [place] [phone] 01/02/2023 13:02:03 01/02/2023 13:20:17 Electrocardiogram abnormal 733651924 R94.31 Pt has significan t risk factors for cad. Pt is at high risk of a cardiac event. Stress echo from 08/14/22 normal. Echo from 08/03/22 showed est ef 60%, mild tr, trace mr, trace-mild pi, and aa 2.5 cm. 07/16/22 ECG: nsr early repolariza tion wnl nptfc. Chest pain 64916593 R07. 9 Pt has significan t risk factors for cad. Pt is at high risk of a cardiac event. Stress echo from 08/14/22 normal. Echo from 08/03/22 showed est ef 60%, mild tr, trace mr, trace-mild pi, and aa 2.5 cm. Dyspnea 277609798 R06.00 Pt has significan t risk factors for cad. Pt is at high risk of a cardiac event. Stress echo on 08/14/22 normal. Echo from 08/03/22 showed est ef 60%, mild tr, trace mr, trace-mild pi, aa 2.5 cm. Heart murmur 04744987 R0 1.1 Echo from 08/03/22 showed est ef 60%, mild tr, trace mr, trace-mild pi, aa 2.5 cm. Bruit 09775792 R09.89 Carotid ultrasound from 08/02/22 normal. AAA us from 08/02/22 normal. Palpitations 51040469 R0 0.2 12/12/22 Pt ordered for labs. Pt reports experienci ng palpitatio ns at night, on average 3 nights per week. She reports that these are sustained palpitatio ns for a few minutes. Pt believes that this is due to anxiety but wants to be sure there is no underlying cause. Holter applied this visit. Discussed emergent symptoms with patient. Holter 12/12/22 reveals nsr, 41 pacs, no pauses > 2.5 seconds. Essential hypertension 82316634 I10 07/16/22 BP 128/90, 130/90. Diet, exercise and wt loss recommende d. Continue hctz 12.5mg qam. Add valsartan 80mg qam.07/25/22 BP 110/70, 112/70. Continue hctz 12.5mg, valsartan 80mg qam. Diet, exercise, and weight loss recommende d. 12/12/22 BP 114/73. Continue hctz 12.5mg, valsartan 80mg qam. Diet, exercise, and weight loss recommende d. Hyperlipidemia 65916742 E78.5 07/08/22 Tchol 223, HDL 62, TG 65, LDL 148, TC/HDL= 3.6. Diet, exercise and wt loss recommende d. Add rosuvastat in 5mg qd.(Pt has had her tubes tied) tchol 161, hdl 48, tg 111, ldl 91, tc/hdl=3.4 . Continue rosuvastat in 5mg qd. 3 Pt did not get labs drawn. Leukopenia 43047472 D72. 819 07/08/22 wbc 3.1. Pt did not get labs drawn. Anxiety 98224784 F41.9 12/12/22 Pt ordered for labs. Pt reports experienci ng palpitatio ns at night, on average 3 nights per week. She reports that these are sustained palpitatio ns for a few minutes. Pt believes that this is due to anxiety but wants to be sure there is no underlying cause. History of tubal ligation 956898561 Z98.51 Per patient. Glucose le lexis outside reference range 021391985 R73.09 08/09/22 glucose 104. Vitamin D deficiency 347 65959 E55.9 07/08/22 vitamin D was 18.4, recommend supplement ation at this time. vitamin d 24.2. Recommend D3 2,000IU daily. Family his tory of aneurysm of blood vessel of brain [id number] 4159341 Z82.49 M - Brain aneurysm. Pt had a CT brain 06/26/22 in [facility] - pt to get us result. Family his tory of Hypertension 656756920 Z82.49 F HTN. Morbid obesity 100736902 E66.01 07/16/22 Wt 170lbs, BMI 30.6. Diet, exercise and wt loss recommende d. Body mass index 30+ - obesity 483627006 Z68.30 07/16/22 Wt 170lbs, BMI 30.6. Diet, exercise and wt loss recommende d. History of reduction of breast 074407888 Z98.890 Patient previous had breast reduction surgery. Gynecologi c examination 43185304 Z01.419 08/15/22 - LMP 08/12/22. Patient reports flow has been heavy since her tubes are tied. Patient does not remember the date of her last PAP. She denies discharge and does not want STD testing. Patient just finishing period, scant red-colore d drainage from cervix noted. Specimen taken for HPV testing. Specimen benign. Screening for malignant neoplasm of cervix 422701854 Z12.4 Pap obtained 08/15/22, normal. Screening mammography 24 112015 Z12.31 32yo benign Screening for malignant neoplasm of colon 429833833 Z12.11 IFOB Screening for disorder 426220492 Z13.9 07/08/22 bun 6.8, creat .8, k 4.1, gfr 98, hct 41.10, hgb 13.2, tsh .63, t4 1.95, Vit d 18.4, fbs 96. Adult heal th examination 788221632 Z00.00 H & P scheduled. Folliculitis 92664239 L7 3.9 01/02/23 Pt reports ? ingrown hair R breast. On exam there is erythema and swelling with a raised lesion at a hair follicle entrance on the R breast approx at 7 oclock. Pt reports pain started a few days ago but has now warmth to the touch and increased swelling. She denies fever. She has tried warm compresses without relief. Ordered cephalexin 500 mg tid x 7 days and diclofenac bid prn for pain/swell ing. We discussed return and emergent precaution s. R breast ultrasound will be performed. 2 week f/u. Pain of breast 19722348 N64.4 01/02/23 Pt reports ? ingrown hair R breast. On exam there is erythema and swelling with a raised lesion at a hair follicle entrance on the R breast approx at 7 oclock. Pt reports pain started a few days ago but has now warmth to the touch and increased swelling. She denies fever. She has tried warm compresses without relief. Ordered cephalexin 500 mg tid x 7 days and diclofenac bid prn for pain/swell ing. We discussed return and emergent precaution s. R breast ultrasound will be performed. 2 week f/u. [id number] Carrie Smith MD [address] [facility] [address] [place] [address] 01/22/2023 13:11:42 01/22/2023 13:29:25 Electrocardiogram abnormal 838158640 R94.31 Pt has significan t risk factors for cad. Pt is at high risk of a cardiac event. Stress echo from 08/14/22 normal. Echo from 08/03/22 showed est ef 60%, mild tr, trace mr, trace-mild pi, and aa 2.5 cm. 07/16/22 ECG: nsr early repolariza tion wnl nptfc. Chest pain 87952653 R07. 9 Pt has significan t risk factors for cad. Pt is at high risk of a cardiac event. Stress echo from 08/14/22 normal. Echo from 08/03/22 showed est ef 60%, mild tr, trace mr, trace-mild pi, and aa 2.5 cm. Dyspnea 454496878 R06.00 Pt has significan t risk factors for cad. Pt is at high risk of a cardiac event. Stress echo on 08/14/22 normal. Echo from 08/03/22 showed est ef 60%, mild tr, trace mr, trace-mild pi, aa 2.5 cm. Heart murmur 96988340 R0 1.1 Echo from 08/03/22 showed est ef 60%, mild tr, trace mr, trace-mild pi, aa 2.5 cm. Bruit 04700372 R09.89 Carotid ultrasound from 08/02/22 normal. AAA us from 08/02/22 normal. Palpitations 04290345 R0 0.2 12/12/22 Pt ordered for labs. Pt reports experienci ng palpitatio ns at night, on average 3 nights per week. She reports that these are sustained palpitatio ns for a few minutes. Pt believes that this is due to anxiety but wants to be sure there is no underlying cause. Holter applied this visit. Discussed emergent symptoms with patient. Holter 12/12/22 reveals nsr, 41 pacs, no pauses > 2.5 seconds. Essential hypertension 56212809 I10 07/16/22 BP 128/90, 130/90. Diet, exercise and wt loss recommende d. Continue hctz 12.5mg qam. Add valsartan 80mg qam.07/25/22 BP 110/70, 112/70. Continue hctz 12.5mg, valsartan 80mg qam. Diet, exercise, and weight loss recommende d.12/12/22 BP 114/73. Continue hctz 12.5mg, valsartan 80mg qam. Diet, exercise, and weight loss recommende d.01/22/23 BP 115/84, 110/76. Cont hctz 12.5 mg qd and valsartan 80 mg qd. Diet, exercise, and weight loss recommende d. Hyperlipidemia 80053906 E78.5 07/08/22 Tchol 223, HDL 62, TG 65, LDL 148, TC/HDL= 3.6. Diet, exercise and wt loss recommende d. Add rosuvastat in 5mg qd.(Pt has had her tubes tied) tchol 161, hdl 48, tg 111, ldl 91, tc/hdl=3.4 . Continue rosuvastat in 5mg qd. 3 Pt did not get labs drawn. Leukopenia 83319501 D72. 819 07/08/22 wbc 3.1. Pt did not get labs drawn. Anxiety 34899094 F41.9 12/12/22 Pt ordered for labs. Pt reports experienci ng palpitatio ns at night, on average 3 nights per week. She reports that these are sustained palpitatio ns for a few minutes. Pt believes that this is due to anxiety but wants to be sure there is no underlying cause. History of tubal ligation 476175226 Z98.51 Per patient. Glucose le lexis outside reference range 892234854 R73.09 08/09/22 glucose 104. Vitamin D deficiency 347 19335 E55.9 07/08/22 vitamin D was 18.4, recommend supplement ation at this time. vitamin d 24.2. Recommend D3 2,000IU daily. Family his tory of aneurysm of blood vessel of brain [id number] 4106537 Z82.49 M - Brain aneurysm. Pt had a CT brain 06/26/22 in [facility] - pt to get us result. Family his tory of Hypertension 113843483 Z82.49 F HTN. Body mass index 30+ - obesity 676995919 Z68.30 07/16/22 Wt 170lbs, BMI 30.6. Diet, exercise and wt loss recommende d.01/22/23 wt 178.4 lbs, BMI 32.1. Diet, exercise, and weight loss recommende d. History of reduction of breast [id number] Z98.890 Patient previous had breast reduction surgery. Gynecologi c examination 62647050 Z01.419 08/15/22 - LMP 08/12/22. Patient reports flow has been heavy since her tubes are tied. Patient does not remember the date of her last PAP. She denies discharge and does not want STD testing. Patient just finishing period, scant red-colore d drainage from cervix noted. Specimen taken for HPV testing. Specimen benign. Screening for malignant neoplasm of cervix 985952514 Z12.4 Pap obtained 08/15/22, normal. Screening mammography 24 580521 Z12.31 32yo benign Screening for malignant neoplasm of colon 837535950 Z12.11 IFOB Screening for disorder 027474641 Z13.9 07/08/22 bun 6.8, creat .8, k 4.1, gfr 98, hct 41.10, hgb 13.2, tsh .63, t4 1.95, Vit d 18.4, fbs 96. Folliculitis 77877518 L7 3.9 01/02/23 Pt reports ? ingrown hair R breast. On exam there is erythema and swelling with a raised lesion at a hair follicle entrance on the R breast approx at 7 oclock. Pt reports pain started a few days ago but has now warmth to the touch and increased swelling. She denies fever. She has tried warm compresses without relief. Ordered cephalexin 500 mg tid x 7 days and diclofenac bid prn for pain/swell ing. We discussed return and emergent precaution s. R breast ultrasound will be performed. 2 week f/u. 3 Pt has been using warm compresses and took prescribed antibiotic . She has not had an ultrasound yet, she has an appt scheduled for March and was hoping to try to schedule this to be done sooner. Pt states she noticed the lump draining fluid after finishing the abx and she states it is much less painful now. Upon exam redness mostly resolved, small area of redness noted around hair follicle, non-tender to palpate. Pt to switch location for breast u/s in hopes having this completed sooner. Pt to call office with new/worsen ing sx and/or if she develops a fever. Pain of breast 88113688 N64.4 01/02/23 Pt reports ? ingrown hair R breast. On exam there is erythema and swelling with a raised lesion at a hair follicle entrance on the R breast approx at 7 oclock. Pt reports pain started a few days ago but has now warmth to the touch and increased swelling. She denies fever. She has tried warm compresses without relief. Ordered cephalexin 500 mg tid x 7 days and diclofenac bid prn for pain/swell ing. We discussed return and emergent precaution s. R breast ultrasound will be performed. 2 week f/u. 3 Pt has been using warm compresses and took prescribed antibiotic . She has not had an ultrasound yet, she has an appt scheduled for March and was hoping to try to schedule this to be done sooner. Pt states she noticed the lump draining fluid after finishing the abx and she states it is much less painful now. Upon exam redness mostly resolved, small area of redness noted around hair follicle, non-tender to palpate. Pt to switch location for breast u/s in hopes having this completed sooner. Pt to call office with new/worsen ing sx and/or if she develops a fever. Adult heal th examination 488523778 Z00.00 H & P scheduled. [id number] Carrie Smith MD [address] [facility] [address] [place] [id number] 03/18/2023 09:49:46 03/18/2023 13:44:00 Electrocardiogram abnormal 132132617 R94.31 Pt has significan t risk factors for cad. Pt is at high risk of a cardiac event. Stress echo from 08/14/22 normal. Echo from 08/03/22 showed est ef 60%, mild tr, trace mr, trace-mild pi, and aa 2.5 cm. 07/16/22 ECG: nsr early repolariza tion wnl nptfc. 03/18/23 ECG: nsr wnl no change cpt prior Chest pain 58919853 R07. 9 Pt has significan t risk factors for cad. Pt is at high risk of a cardiac event. Stress echo from 08/14/22 normal. Echo from 08/03/22 showed est ef 60%, mild tr, trace mr, trace-mild pi, and aa 2.5 cm. Dyspnea 743803690 R06.00 Pt has significan t risk factors for cad. Pt is at high risk of a cardiac event. Stress echo on 08/14/22 normal. Echo from 08/03/22 showed est ef 60%, mild tr, trace mr, trace-mild pi, aa 2.5 cm. Heart murmur 31085570 R0 1.1 Echo from 08/03/22 showed est ef 60%, mild tr, trace mr, trace-mild pi, aa 2.5 cm. Bruit 97781435 R09.89 Carotid ultrasound from 08/02/22 normal. AAA us from 08/02/22 normal. Palpitations 55958562 R0 0.2 12/12/22 Pt ordered for labs. Pt reports experienci ng palpitatio ns at night, on average 3 nights per week. She reports that these are sustained palpitatio ns for a few minutes. Pt believes that this is due to anxiety but wants to be sure there is no underlying cause. Holter applied this visit. Discussed emergent symptoms with patient. Holter 12/12/22 reveals nsr, 41 pacs, no pauses > 2.5 seconds. Essential hypertension 66651544 I10 07/16/22 BP 128/90, 130/90. Diet, exercise and wt loss recommende d. Continue hctz 12.5mg qam. Add valsartan 80mg qam.07/25/22 BP 110/70, 112/70. Continue hctz 12.5mg, valsartan 80mg qam. Diet, exercise, and weight loss recommende d.12/12/22 BP 114/73. Continue hctz 12.5mg, valsartan 80mg qam. Diet, exercise, and weight loss recommende d. 01/22/23 BP 115/84, 110/76. Cont hctz 12.5 mg qd and valsartan 80 mg qd. Diet, exercise, and weight loss recommende d. Hyperlipidemia 07428299 E78.5 07/08/22 Tchol 223, HDL 62, TG 65, LDL 148, TC/HDL= 3.6. Diet, exercise and wt loss recommende d. Add rosuvastat in 5mg qd.(Pt has had her tubes tied) tchol 161, hdl 48, tg 111, ldl 91, tc/hdl=3.4 . Continue rosuvastat in 5mg qd. 3 Pt did not get labs drawn. 03/13/23 tchol 175, hdl 58, ldl 103, tg 71. Continue rosuvastat in 5mg qd. Pt s/p tubal litigation . Recommend diet, exercise, and weight loss. Vitamin D deficiency 347 66810 E55.9 07/08/22 vitamin D was 18.4, recommend supplement ation at this time. vitamin d 24.2. Recommend D3 2,000IU daily.03/18 Patient not taking supplement 's. Will order D3. Anxiety 57857664 F41.9 12/12/22 Pt ordered for labs. Pt reports experienci ng palpitatio ns at night, on average 3 nights per week. She reports that these are sustained palpitatio ns for a few minutes. Pt believes that this is due to anxiety but wants to be sure there is no underlying cause. History of tubal ligation 560813186 Z98.51 Per patient. Family his tory of aneurysm of blood vessel of brain [id number] 8608177 Z82.49 M - Brain aneurysm. Pt had a CT brain 06/26/22 in [facility] - pt to get us result. Body mass index 30+ - obesity 464268359 Z68.30 07/16/22 Wt 170lbs, BMI 30.6. Diet, exercise and wt loss recommende d.01/22/23 wt 178.4 lbs, BMI 32.1. Diet, exercise, and weight loss recommende d. History of reduction of breast 504806549 Z98.890 Patient previous had breast reduction surgery. Gynecologi c examination 37509747 Z01.419 08/15/22 - LMP 08/12/22. Patient reports flow has been heavy since her tubes are tied. Patient does not remember the date of her last PAP. She denies discharge and does not want STD testing. Patient just finishing period, scant red-colore d drainage from cervix noted. Specimen taken for HPV testing. Specimen benign. Screening for malignant neoplasm of cervix 531612241 Z12.4 Pap obtained 08/15/22, normal. Screening mammography 24 527879 Z12.31 32yo benign Pain of breast 31780784 N64.4 01/02/23 Pt reports ? ingrown hair R breast. On exam there is erythema and swelling with a raised lesion at a hair follicle entrance on the R breast approx at 7 oclock. Pt reports pain started a few days ago but has now warmth to the touch and increased swelling. She denies fever. She has tried warm compresses without relief. Ordered cephalexin 500 mg tid x 7 days and diclofenac bid prn for pain/swell ing. We discussed return and emergent precaution s. R breast ultrasound will be performed. 2 week f/u. 01/22/23 Pt has been using warm compresses and took prescribed antibiotic . She has not had an ultrasound yet, she has an appt scheduled for March and was hoping to try to schedule this to be done sooner. Pt states she noticed the lump draining fluid after finishing the abx and she states it is much less painful now. Upon exam redness mostly resolved, small area of redness noted around hair follicle, non-tender to palpate. Pt to switch location for breast u/s in hopes having this completed sooner. Pt to call office with new/worsen ing sx and/or if she develops a fever. 03/18/23 Resolved. Pt has mammogram scheduled for 03/2023. Adult heal th examination 782213347 Z00.00 H & P 03/18/23 Thyroid dysfunction 2645 97134 E07.9 Thyroid scan 09/19/23 with asymmetry. 03/18/23 Pt referred to endocrine who will be ordering a thyroid ultrasound . Pt states that she had a thyroid ultrasound done 11/2022 at [facility]. Will request records. Bilateral cramp of muscle of lower limbs [id number] 7903851 R25.2 03/18/23 Pt with progressiv e left leg cramp overnight that wakes her up continuall y. This pain is from her left knee to her left hip. Advised patient hold statin to see if statin mylagia. Will draw cbc, crp, and magnesium. Follow up in 2 weeks. [id number] Carrie Smith MD [address] [place] [address] [place] [id number] 2 03/27/2023 12:59:47 03/27/2023 13:32:25 Electrocardiogram abnormal 746483947 R94.31 Pt has significan t risk factors for cad. Pt is at high risk of a cardiac event. Stress echo from 08/14/22 normal. Echo from 08/03/22 showed est ef 60%, mild tr, trace mr, trace-mild pi, and aa 2.5 cm. 03/18/23 ECG: nsr wnl no change cpt prior 03/27/23 ECG: nsr early repolariza tion nssttw changes no change cpt 03/18/23. Chest pain 29347586 R07. 9 Pt has significan t risk factors for cad. Pt is at high risk of a cardiac event. Stress echo from 08/14/22 normal. Echo from 08/03/22 showed est ef 60%, mild tr, trace mr, trace-mild pi, and aa 2.5 cm. Dyspnea 527224744 R06.00 Pt has significan t risk factors for cad. Pt is at high risk of a cardiac event. Stress echo on 08/14/22 normal. Echo from 08/03/22 showed est ef 60%, mild tr, trace mr, trace-mild pi, aa 2.5 cm. Heart murmur 69841088 R0 1.1 Echo from 08/03/22 showed est ef 60%, mild tr, trace mr, trace-mild pi, aa 2.5 cm. Bruit 16338540 R09.89 Carotid ultrasound from 08/02/22 normal. AAA us from 08/02/22 normal. Palpitations 12151555 R0 0.2 12/12/22 Pt ordered for labs. Pt reports experienci ng palpitatio ns at night, on average 3 nights per week. She reports that these are sustained palpitatio ns for a few minutes. Pt believes that this is due to anxiety but wants to be sure there is no underlying cause. Holter applied this visit. Discussed emergent symptoms with patient. Holter 12/12/22 reveals nsr, 41 pacs, no pauses > 2.5 seconds. Essential hypertension 47553450 I10 07/16/22 BP 128/90, 130/90. Diet, exercise and wt loss recommende d. Continue hctz 12.5mg qam. Add valsartan 80mg qam.07/25/22 BP 110/70, 112/70. Continue hctz 12.5mg, valsartan 80mg qam. Diet, exercise, and weight loss recommende d.12/12/22 BP 114/73. Continue hctz 12.5mg, valsartan 80mg qam. Diet, exercise, and weight loss recommende d. 01/22/23 BP 115/84, 110/76. Cont hctz 12.5 mg qd and valsartan 80 mg qd. Diet, exercise, and weight loss recommende d. Hyperlipidemia 41864343 E78.5 07/08/22 Tchol 223, HDL 62, TG 65, LDL 148, TC/HDL= 3.6. Diet, exercise and wt loss recommende d. Add rosuvastat in 5mg qd.(Pt has had her tubes tied) tchol 161, hdl 48, tg 111, ldl 91, tc/hdl=3.4 . Continue rosuvastat in 5mg qd. 3 Pt did not get labs drawn. 03/13/23 tchol 175, hdl 58, ldl 103, tg 71. Continue rosuvastat in 5mg qd. Pt s/p tubal litigation . Recommend diet, exercise, and weight loss. Thyroid dysfunction 6242 60977 E07.9 Thyroid scan 09/19/23 with asymmetry. 03/18/23 Pt referred to endocrine who will be ordering a thyroid ultrasound . Pt states that she had a thyroid ultrasound done 11/2022 at [facility]. Will request records. Vitamin D deficiency 347 91399 E55.9 07/08/22 vitamin D was 18.4, recommend supplement ation at this time. vitamin d 24.2. Recommend D3 2,000IU daily.03/18 Patient not taking supplement 's. Will order D3. Anxiety 34035617 F41.9 12/12/22 Pt ordered for labs. Pt reports experienci ng palpitatio ns at night, on average 3 nights per week. She reports that these are sustained palpitatio ns for a few minutes. Pt believes that this is due to anxiety but wants to be sure there is no underlying cause. History of tubal ligation 328233662 Z98.51 Per patient. Family his tory of aneurysm of blood vessel of brain [id number] 9931746 Z82.49 M - Brain aneurysm. Pt had a CT brain 06/26/22 in [facility] - pt to get us result. Pain of breast 45740417 N64.4 01/02/23 Pt reports ? ingrown hair R breast. On exam there is erythema and swelling with a raised lesion at a hair follicle entrance on the R breast approx at 7 oclock. Pt reports pain started a few days ago but has now warmth to the touch and increased swelling. She denies fever. She has tried warm compresses without relief. Ordered cephalexin 500 mg tid x 7 days and diclofenac bid prn for pain/swell ing. We discussed return and emergent precaution s. R breast ultrasound will be performed. 2 week f/u. 01/22/23 Pt has been using warm compresses and took prescribed antibiotic . She has not had an ultrasound yet, she has an appt scheduled for March and was hoping to try to schedule this to be done sooner. Pt states she noticed the lump draining fluid after finishing the abx and she states it is much less painful now. Upon exam redness mostly resolved, small area of redness noted around hair follicle, non-tender to palpate. Pt to switch location for breast u/s in hopes having this completed sooner. Pt to call office with new/worsen ing sx and/or if she develops a fever. 03/18/23 Resolved. Pt has mammogram scheduled for 03/2023. Bilateral cramp of muscle of lower limbs [id number] 6584812 R25.2 03/18/23 Pt with progressiv e left leg cramp overnight that wakes her up continuall y. This pain is from her left knee to her left hip. Advised patient hold statin to see if statin mylagia. Will draw cbc, crp, and magnesium. Follow up in 2 weeks. Body mass index 30+ - obesity 263956311 Z68.30 07/16/22 Wt 170lbs, BMI 30.6. Diet, exercise and wt loss recommende d.01/22/23 wt 178.4 lbs, BMI 32.1. Diet, exercise, and weight loss recommende d. History of reduction of breast 178207900 Z98.890 Patient previous had breast reduction surgery. Gynecologi c examination 85577741 Z01.419 08/15/22 - LMP 08/12/22. Patient reports flow has been heavy since her tubes are tied. Patient does not remember the date of her last PAP. She denies discharge and does not want STD testing. Patient just finishing period, scant red-colore d drainage from cervix noted. Specimen taken for HPV testing. Specimen benign. Screening for malignant neoplasm of cervix 297536434 Z12.4 Pap obtained 08/15/22, normal. Screening mammography 24 133911 Z12.31 32yo benign Adult heal th examination 827970665 Z00.00 H & P 03/18/23 Neck pain 30154742 M54.2 03/27/23 Pt was seen at [facility] 03/20/23 and diagnosed with cervical radiculopa thy. She reports left-sided facial pain with ear burning feeling that is down her left neck/face. This occurs randomly at times and has no pattern. Pt describes this as more of a fullness than pain. She denies fevers, chills, and recent infection. ECG in office unchanged. PE unremarkab le. Will start medrol dose pack, cyclobenza timoteo 5mg TID prn. Pt advised to go to urgent care if symptoms do not improve in 1-2 days. Will follow up next week with patient. Will order urgent thyroid ultrasound to rule out obstructiv e goiter/thy romegaly given severity of symptoms. [id number] Carrie Smith MD [address] [place] [address] [address] [place] [id number] 04/11/2023 13:21:38 04/11/2023 14:01:45 Electrocardiogram abnormal 613424078 R94.31 Pt has significan t risk factors for cad. Pt is at high risk of a cardiac event. Stress echo from 08/14/22 normal. Echo from 08/03/22 showed est ef 60%, mild tr, trace mr, trace-mild pi, and aa 2.5 cm. 07/16/22 ECG: nsr early repolariza tion wnl nptfc. 03/18/23 ECG: nsr wnl no change cpt prior Chest pain 36689173 R07. 9 Pt has significan t risk factors for cad. Pt is at high risk of a cardiac event. Stress echo from 08/14/22 normal. Echo from 08/03/22 showed est ef 60%, mild tr, trace mr, trace-mild pi, and aa 2.5 cm. Dyspnea 578622274 R06.00 Pt has significan t risk factors for cad. Pt is at high risk of a cardiac event. Stress echo on 08/14/22 normal. Echo from 08/03/22 showed est ef 60%, mild tr, trace mr, trace-mild pi, aa 2.5 cm. Heart murmur 90356637 R0 1.1 Echo from 08/03/22 showed est ef 60%, mild tr, trace mr, trace-mild pi, aa 2.5 cm. Bruit 14979125 R09.89 Carotid ultrasound from 08/02/22 normal. AAA us from 08/02/22 normal. Palpitations 83722597 R0 0.2 12/12/22 Pt ordered for labs. Pt reports experienci ng palpitatio ns at night, on average 3 nights per week. She reports that these are sustained palpitatio ns for a few minutes. Pt believes that this is due to anxiety but wants to be sure there is no underlying cause. Holter applied this visit. Discussed emergent symptoms with patient. Holter 12/12/22 reveals nsr, 41 pacs, no pauses > 2.5 seconds. Essential hypertension 72790987 I10 07/16/22 BP 128/90, 130/90. Diet, exercise and wt loss recommende d. Continue hctz 12.5mg qam. Add valsartan 80mg qam.07/25/22 BP 110/70, 112/70. Continue hctz 12.5mg, valsartan 80mg qam. Diet, exercise, and weight loss recommende d.12/12/22 BP 114/73. Continue hctz 12.5mg, valsartan 80mg qam. Diet, exercise, and weight loss recommende d. 01/22/23 BP 115/84, 110/76. Cont hctz 12.5 mg qd and valsartan 80 mg qd. Diet, exercise, and weight loss recommende d. Hyperlipidemia 72760954 E78.5 07/08/22 Tchol 223, HDL 62, TG 65, LDL 148, TC/HDL= 3.6. Diet, exercise and wt loss recommende d. Add rosuvastat in 5mg qd.(Pt has had her tubes tied) tchol 161, hdl 48, tg 111, ldl 91, tc/hdl=3.4 . Continue rosuvastat in 5mg qd. 3 Pt did not get labs drawn.03/13 tchol 175, hdl 58, ldl 103, tg 71. Continue rosuvastat in 5mg qd. Pt s/p tubal litigation . Recommend diet, exercise, and weight loss. 04/11/23 Pt unable to tolerate rosuvastat in due to myalgias. Stop rosuvastat in, recheck cholestero l in 3 months. May consider a trial of zetia if LDL elevated at this time. Vitamin D deficiency 347 89541 E55.9 07/08/22 vitamin D was 18.4, recommend supplement ation at this time. vitamin d 24.2. Recommend D3 2,000IU daily.03/18 Patient not taking supplement 's. Will order D3. Anxiety 15369205 F41.9 12/12/22 Pt ordered for labs. Pt reports experienci ng palpitatio ns at night, on average 3 nights per week. She reports that these are sustained palpitatio ns for a few minutes. Pt believes that this is due to anxiety but wants to be sure there is no underlying cause. History of tubal ligation 614591522 Z98.51 Per patient. Family his tory of aneurysm of blood vessel of brain 1446665446 6197179 Z82.49 M - Brain aneurysm. Pt had a CT brain 06/26/22 in [facility] - pt to get us result. Pain of breast 76027996 N64.4 01/02/23 Pt reports ? ingrown hair R breast. On exam there is erythema and swelling with a raised lesion at a hair follicle entrance on the R breast approx at 7 oclock. Pt reports pain started a few days ago but has now warmth to the touch and increased swelling. She denies fever. She has tried warm compresses without relief. Ordered cephalexin 500 mg tid x 7 days and diclofenac bid prn for pain/swell ing. We discussed return and emergent precaution s. R breast ultrasound will be performed. 2 week f/u. 01/22/23 Pt has been using warm compresses and took prescribed antibiotic . She has not had an ultrasound yet, she has an appt scheduled for March and was hoping to try to schedule this to be done sooner. Pt states she noticed the lump draining fluid after finishing the abx and she states it is much less painful now. Upon exam redness mostly resolved, small area of redness noted around hair follicle, non-tender to palpate. Pt to switch location for breast u/s in hopes having this completed sooner. Pt to call office with new/worsen ing sx and/or if she develops a fever. 03/18/23 Resolved. Pt has mammogram scheduled for 03/2023. Bilateral cramp of muscle of lower limbs 1085388160 9806540 R25.2 03/18/23 Pt with progressiv e left leg cramp overnight that wakes her up continuall y. This pain is from her left knee to her left hip. Advised patient hold statin to see if statin mylagia. Will draw cbc, crp, and magnesium. Follow up in 2 weeks. Neck pain 03172871 M54.2 03/27/23 Pt was seen at [facility] 03/20/23 and diagnosed with cervical radiculopa thy. She reports left-sided facial pain with ear burning feeling that is down her left neck/face. This occurs randomly at times and has no pattern. Pt describes this as more of a fullness than pain. She denies fevers, chills, and recent infection. ECG in office unchanged. PE unremarkab le. Will start medrol dose pack, cyclobenza timoteo 5mg TID prn. Pt advised to go to urgent care if symptoms do not improve in 1-2 days. Will follow up next week with patient. Will order urgent thyroid ultrasound to rule out obstructiv e goiter/thy romegaly given severity of symptoms. 04/11/23 Pain determined to be secondary to left-sided thyroiditi s. Pt reports some relief with muscle relaxer, will provide refill. Discussed emergent symptoms with patient. Pt to follow up with endocrine 04/14/23. Body mass index 30+ - obesity 111228697 Z68.30 07/16/22 Wt 170lbs, BMI 30.6. Diet, exercise and wt loss recommende d.01/22/23 wt 178.4 lbs, BMI 32.1. Diet, exercise, and weight loss recommende d. History of reduction of breast 184187184 Z98.890 Patient previous had breast reduction surgery. Gynecologi c examination 80996860 Z01.419 08/15/22 - LMP 08/12/22. Patient reports flow has been heavy since her tubes are tied. Patient does not remember the date of her last PAP. She denies discharge and does not want STD testing. Patient just finishing period, scant red-colore d drainage from cervix noted. Specimen taken for HPV testing. Specimen benign. Screening for malignant neoplasm of cervix 364017337 Z12.4 Pap obtained 08/15/22, normal. Screening mammography 24 598946 Z12.31 32yo benign Adult heal th examination 810507727 Z00.00 H & P 03/18/23 Thyroid nodule 459478952 E04.1 03/18/23 Pt referred to endocrine who will be ordering a thyroid ultrasound . Pt states that she had a thyroid ultrasound done 11/2022 at [facility]. Will request records. 03/27/23 Thyroid ultrasound with left nodule 2x2x1.3 cm TR 4 solid nodule moderately suspicious with recommenda tion for FNA. Pt has appointmen t with endocrine 04/02/23 to discuss these results/co nsult for necessity of FNA. 04/11/23 Per pt, endocrine wants her to have lab work done because if there is swelling in the thyroid they will have to wait to do the biopsy until this swelling/i nflammatio n subsides. Pt will be seeing endocrine 04/14/23 for reevaluati on. Thyroid scan 09/19/23 with asymmetry. Statin not tolerated [id number] Z78.9 04/11/23 Pt unable to tolerate statin therapy due to myalgias. Thyroiditis [id number] E06 .9 04/11/23 Per endocrine recent left-sided neck pain due to thyroiditi s. Pt advised to continue ibuprofen prn. Follow up with endocrine 04/14/23. Leukopenia [id number] D72. 819 07/08/22 wbc 3.1. 4 Pt reports a history of leukopenia and followed with a hematologi st for 4-5 years without change. She denies frequent infections . Will continue to monitor as appropriat e. Health Concerns Section Related Observation LastModified by Organization Detai ls LastModified Time None Recorded Concern Status LastModified by Organization Details LastModified Time None Recorded Advance Directives Directive N: Payers Encounter Date Sequence Insurance Name Policy Number Policy Lees Covered Member ID Lees Member ID Guarantor Name 01/02/2023 1 [employer] (H[employer]) [place] Zulymar Castro-M atos [id number] Zulymar Castro 01/22/2023 1 [employer] (H[employer]) [place] Zulymar Castro-M atos [id number] Zulymar Castro 03/18/2023 1 [facility] [facility] [place] Zulymar Castro-M atos [id number] Zulymar Castro 03/27/2023 1 [employer] - [employer] (HMO) [place] Zulymar Castro-M atos [id number] Zulymar Castro 04/11/2023 1 [employer] - [employer] (HMO) [place] Zulymar Castro-M atos [id number] Zulymar Castro Notes Date Note Type Note Provider Name and Address Organization Details Recorded Time 01/02/2023 text/html 37 yo white fema le with h/o HTN, Hyperlipidemia, FHX of Mother brain aneurysm who presents 07/16/22 for new pt evaluation. Pt went to [facility] 06/09 and had a L ear infection. Pt was treated with antibiotic and prednisone with resolution. She questions if the hctz that she is on for her htn could cause tinnitus or ear infections. Pt is getting bilateral lower leg cramps. Patient returns 01/02/23 for sdsv and discussion of BP/holter and med rx results. Pt reports a few days or worsening R breast pain/swelling and redness. Pt feels that she might have an ingrown hair. Pt states she has tried warm compresses without relief. Pt is unable to wear a bra due to the pain. Pt denies fever or chills. No pnd or orthopnea, no palpitations, lightheadedness or loc. Cardiac Risk Factors: + HTN, - DM, - UT, + FHX F-htn, M-brin aneurysm, - TOB, - Second Hand Tobacco Exposure, + Hyperlipidemia. Carrie Smith MD [address] [place] [address], [phone], [facility] 01/02/2023 14:40:11 01/22/2023 text/html 37 yo white fema le with h/o HTN, Hyperlipidemia, FHX of Mother brain aneurysm who presents 07/16/22 for new pt evaluation. Pt went to [facility] 06/09 and had a L ear infection. Pt was treated with antibiotic and prednisone with resolution. She questions if the hctz that she is on for her htn could cause tinnitus or ear infections. Pt is getting bilateral lower leg cramps. Patient returns 01/22/23 for f/u and discussion of recent sick visit for R breast pain. Pt was seen on 01/02 for a sick visit for what she thought was an ingrown hair on her right breast. Pt has been using warm compresses and took prescribed antibiotic. She has not had an ultrasound yet, she has an appt scheduled for March and was hoping to try to schedule this to be done sooner. Pt states she noticed the lump draining fluid after finishing the abx and she states it is much less painful now. No pnd or orthopnea, no palpitations, lightheadedness or loc. Cardiac Risk Factors: + HTN, - DM, - UT, + FHX F-htn, M-brin aneurysm, - TOB, - Second Hand Tobacco Exposure, + Hyperlipidemia. Carrie Smith MD [address] [place] [address], [phone], [facility] 01/22/2023 14:06:31 03/18/2023 text/html 37 yo white fema le with h/o HTN, Hyperlipidemia, FHX of Mother brain aneurysm who presents 07/16/22 for new pt evaluation. Pt went to [facility] 06/09 and had a L ear infection. Pt was treated with antibiotic and prednisone with resolution. She questions if the hctz that she is on for her htn could cause tinnitus or ear infections. Pt is getting bilateral lower leg cramps. Patient returns 03/18/23 for physical and discussion of BP/medications/labs. Pt saw endocrine 03/05/23 for abnormal thyroid scan at [facility]. She is ordered for a thyroid ultrasound to evaluate this. Pt seen today for physical. Pt with progressive Left leg cramp overnight that wakes her up continually. This pain is from her left knee to her left hip. Pt has mammogram scheduled for 03/2023. No pnd or orthopnea, no palpitations, lightheadedness or loc. Cardiac Risk Factors: + HTN, - DM, - UT, + FHX F-htn, M-brin aneurysm, - TOB, - Second Hand Tobacco Exposure, + Hyperlipidemia. Carrie Smith MD [address] [place] [address], [phone], [facility] 03/18/2023 16:13:59 03/27/2023 text/html 37 yo white fema le with h/o HTN, Hyperlipidemia, FHX of Mother brain aneurysm who presents 07/16/22 for new pt evaluation. Pt follows with endocrine for abnormal thyroid scan. Patient returns 03/27/23 for ER follow up/same day sick visit for back pain and discussion of BP/medications. Pt was seen at [facility] 03/20/23 and diagnosed with cervical radiculopathy. She reports left-sided facial pain with ear burning feeling that is down her left neck/face. This occurs randomly at times and has no pattern. Pt describes this as more of a fullness than pain. She denies fevers, chills, and recent infection. Pt did have recent thyroid imaging that showed enlargement of left thyroid lobe. She is seeing endocrine, multiple records requests faxed to this office not received. No pnd or orthopnea, no palpitations, lightheadedness or loc. Cardiac Risk Factors: + HTN, - DM, - UT, + FHX F-htn, M-brin aneurysm, - TOB, - Second Hand Tobacco Exposure, + Hyperlipidemia. Carrie Smith MD [address] [place] [address], [place], [phone], [facility] 04/02/2023 22:12:37 04/11/2023 text/html 37 yo white fema le with h/o HTN, Hyperlipidemia, FHX of Mother brain aneurysm who presents 07/16/22 for new pt evaluation. Thyroid ultrasound 03/27/23 with left nodule 2x2x1.3 cm TR 4 solid nodule moderately suspicious with recommendation for FNA. Patient returns 04/11/23 for follow up and discussion of BP/medications. Pt saw endocrine after she was advised to be this office for Thyroid ultrasound 03/27/23 with left nodule 2x2x1.3 cm TR 4 solid nodule moderately suspicious with recommendation for FNA. Patient will be seeing endocrine on Friday to reevaluate. Per pt, endocrine wants her to have lab work done because if there is swelling in the thyroid they will have to wait to do the biopsy until this swelling/inflammation subsides. Pt also reports that her muscle aches are gone after stopping rosuvastatin. No pnd or orthopnea, no palpitations, lightheadedness or loc. Cardiac Risk Factors: + HTN, - DM, - UT, + FHX F-htn, M-brin aneurysm, - TOB, - Second Hand Tobacco Exposure, + Hyperlipidemia. Carrie Smith MD [address] [facility], [place], [phone], [facility] 04/11/2023 15:39:45 OBGyn Episode No OBEpisode recorded.
[2024-04-16 15:19] LABS: Rheumatoid Factor 16.6 IU/mL (<15.0)
[2024-04-16 15:29] LABS: Erythrocyte Sedimentation Rate 11 MM/HR (0-20)
[2024-04-16 16:24] LABS: C Reactive Protein 0.11 mg/dL (< or = 0.50)
[2024-04-19 22:04] LABS: Anti DNA DS Antibody 1 IU/mL
[2024-04-20 12:47] LABS: Cyclic Citrullinated Peptide <16 UNITS
[2024-04-22 12:18] LABS: Anti Nuclear Antibody Screen NEGATIVE (NEGATIVE)
[2024-04-23 11:39] LABS: HLA B27 Negative (Negative)
== END 2024-04-16 09:02 | disposition home or self-care (01) ==
LOC: HO.CHCLDS 09:01
PROVIDERS: Visit Provider Internal Medicine
DX: M25.40 Effusion, unspecified joint (principal)
CPT/HCPCS: 36415; 85652; 86038; 86140; 86200; 86225; 86431; 86812

== ENCOUNTER 2024-07-14 08:32 | Outpatient (REF) | payer MEDICAID, SELFPAY ==
--- NOTE | ~2024-07-14 | XR_ITS ---
EXAMINATION: XR HAND, RIGHT CLINICAL INFORMATION: Please eval for erosions +RF COMPARISON: None available. TECHNIQUE: PA, lateral, and oblique views of the right hand. FINDINGS: No fracture, dislocation, or suspicious bone lesion. No periarticular osteopenia. No erosions. Normal alignment. Joint spaces are preserved without significant arthropathy. Carpus appear normal. There is no soft tissue abnormality. XR/XR hand RT min 3V IMPRESSION: Normal right hand. No radiographic evidence of inflammatory arthropathy. Electronically signed by: Hadley Meier MD 07/14/2024 12:12 PM EDT
--- NOTE | ~2024-07-14 | XR_ITS ---
EXAMINATION: XR HAND, LEFT CLINICAL INFORMATION: please eval for erosion, +RF COMPARISON: None available. TECHNIQUE: PA, lateral, and oblique views of the left hand. FINDINGS: No fracture, dislocation, or suspicious bone lesion. No periarticular osteopenia. No erosions. Normal alignment. Joint spaces are preserved without significant arthropathy. Carpus appear normal. There is no soft tissue abnormality. XR/XR hand LT min 3V IMPRESSION: Normal left hand. No radiographic evidence of inflammatory arthropathy. Electronically signed by: Hadley Meier MD 07/14/2024 12:11 PM EDT
--- OUTSIDE RECORDS SUMMARY | 2024-07-14 08:48 | XMS_ITS | Encounter Summary ---
Author Organization [employer] Address [address] [place] [address] Care Team Providers Care Route Delivery Service Driver Name Role Phone Juarez Quintana MD Primary Care Prov ider Encounter Details Date Type Department Care Team (Latest Contact Info) Description 07/13/2024 Travel Social History Tobacco Use Types Packs/Day [...] Access Q2 Not on file 10/17/2023 Comments No Sex and Gender Information Value Date Recorded Sex Assigned at Female 12/17/2021 10:29 AM EDT Legal Sex Female 10:29 AM EDT Gender Identity Female 12/17/2021 10:29 AM EDT Sexual Orientation Straight 12/17/2021 10 :29 AM EDT documented as of this encounter Plan of Treatment Not on file documented as of this encounter Visit Diagnoses Not on filedocumented in this encounter Care Teams Route Delivery Service Driver Relationship Specialty Start Date End Date ChandlerJuarez Davis MD [address] [place] [id number] PCP - General Internal Medicine 07/18/19 documented as of this encounter
== END 2024-07-14 08:33 | disposition home or self-care (01) ==
LOC: HO.HMGCX 08:32
PROVIDERS: PCP Internal Medicine; Visit Provider Internal Medicine
DX: M25.441 Effusion, right hand (principal); M25.442 Effusion, left hand
CPT/HCPCS: 73130

== ENCOUNTER → 2024-07-14 08:38 | Outpatient (BNV) | payer MEDICAID, SELFPAY | PROVIDERS: PCP Internal Medicine; Visit Provider Radiology Diagnostic Radiology | DX: M05.742 Rheumatoid arthritis with rheumatoid factor of left hand without organ or systems involvement (principal); M05.741 Rheumatoid arthritis with rheumatoid factor of right hand without organ or systems involvement | CPT/HCPCS: 73130 ==

== ENCOUNTER 2024-09-30 08:54 | Emergency (ER) | payer MEDICAID, SELFPAY ==
--- NOTE | ~2024-09-30 | CT_ITS ---
EXAMINATION: CT HEAD WITHOUT CONTRAST CLINICAL INFORMATION: LUE?/LLE pain, numbness, tingling, weakness COMPARISON: None available. TECHNIQUE: Contiguous axial imaging was performed from the skull base to vertex without intravenous administration of contrast. This CT examination was performed using dose optimization techniques as appropriate, variously including the following: *Automated exposure control *Adjustment of mA and/or kV according to patient size (this includes techniques or standardized protocols for targeted exams where dose is matched to indication/reason for exam; i.e. extremities or head) *Use of iterative reconstruction technique FINDINGS: Streak artifacts from patient's bilateral earrings limit local evaluation. Brain parenchyma: There is a somewhat asymmetric area with suggestion of loss of hector-white matter differentiation in the left occipital lobe (for example 4:18). No parenchymal hemorrhage. Ventricles/extra-axial spaces: No hydrocephalus. No extra-axial fluid collection. Extracranial structures: Polypoid mucosal thickening of the right maxillary sinus. Remaining paranasal sinuses are clear. Bilateral mastoid air cells are clear. Bilateral orbital globes are unremarkable. CT/CT head/brain wo IV con IMPRESSION: Possible loss of hector-white matter differentiation in the left occipital lobe, which could reflect an area of age-indeterminate infarct. Brain MRI without contrast is recommended for further evaluation. Abnormal finding described in the impression communicated via secure message system to the ordering provider REMI Lee at approximately 11:10 AM on September 30, 2024. Awaiting read confirmation. Electronically signed by: Ascencion Fall MD 09/30/2024 11:21 AM EDT
--- NOTE | ~2024-09-30 | CT_ITS ---
EXAMINATION: CT CERVICAL SPINE WITHOUT CONTRAST CLINICAL INFORMATION: Left upper extremity tingling, pain and numbness COMPARISON: None available. TECHNIQUE: Contiguous axial images through the cervical spine using 3 mm collimation with bone and soft tissue algorithm. Sagittal and coronal reformatted images acquired. DLP: 340.[address] examination was performed using dose optimization techniques as appropriate, variously including the following: *Automated exposure control *Adjustment of mA and/or kV according to patient size (this includes techniques or standardized protocols for targeted exams where dose is matched to indication/reason for exam; i.e. extremities or head) *Use of iterative reconstruction technique FINDINGS: Craniocervical junction is intact with normal alignment between the occipital condyles and lateral masses of C1. C1 is intact. C2 is intact. C3 is intact. C4 is intact. C5 is intact. C6 is intact. C7 is intact. Small marginal osteophyte formation at C5-6 and C6-7. Mild reverse curvature apex at C5-6. Mild decreased intervertebral disc height at C5-6 and C6-7. No gross prevertebral compartment hematoma. There is a 15 mm dominant nodule left thyroid lobe. Tympanic cavities and mastoid cells are aerated. CT/CT cervical spine wo IV con IMPRESSION: Cervical spondylosis C5-6 and C6-7 levels. Fleischner guidelines were followed. Electronically signed by: Fritz Colon MD 09/30/2024 10:57 AM EDT
[2024-09-30 09:10] VITALS: BP 138/85; PULSE 99; RESP 18; TEMP 36.4; O2SAT 98; BMI 32.2
--- NOTE | 2024-09-30 09:13 | ECG_ITS ---
Test Reason : amor pain Blood Pressure : */* mmHG Vent. Rate : 83 BPM Atrial Rate : 83 BPM P-R Int : 122 ms QRS Dur : 72 ms QT Int : 348 ms P-R-T Axes : 32 16 26 degrees QTcB Int : 408 ms Normal sinus rhythm Normal ECG No previous ECGs available Referred By: Generic ED Physician Electronically Signed By: Charbel Horne
--- NOTE | 2024-09-30 09:37 | ED.EXTPRO ---
HPI - Extremity Problem General Chief complaint: Extremity Injury, Upper Stated complaint: Pain/numbness L arm & leg Time Seen by Provider: 09/30/24 09:37 Source: patient Mode of arrival: ambulatory Limitations: no limitations History of Present Illness ED Provider: Mariana Patton HPI Narrative: 38 yo right hand dominant female with history of HTN and leukopenia presents to the ER for evaluation of LUE pain, numbness and tingling for the last 3 weeks. She states she initially thought it was from tension in her neck and upper back so took some muscle relaxers without relief. She states the pain is sharp and deep inside the entire arm, feels like it is in the upper arm and radiates down into the finger. She states along with the pain diffuse numbness and tingling sensation of the entire LUE. In the last 1 week she also reports similar sensation and pain in the left anterior thigh. No headache, neck pain, fever, chills, SOB, chest pain, abdominal pain, N/V/D, myalgias. She reports 2 years ago she had tingling on the left side of her face. She was seen by [facility] and had a normal MRI of the brain. It eventually resolved. MD Complaint: extremity pain and other (extremity tingling and numbness) Onset (ago): week(s) (3) Pain Consistency: constant Location: left and upper extremity Quality: sharp Radiation: distal Relieving factors: nothing Exacerbating factors: other (nighttime) Associated symptoms: denies other symptoms Related Data Home Medications ?Medication ?Instructions ?Recorded ?Confirmed hydrochlorothiazide 12.5 mg tablet 12.5 mg PO DAILY 09/21/20 10/18/21 Previous Rx's ?Medication ?Instructions ?Recorded lisinopril 5 mg tablet 5 mg PO DAILY #30 tabs 11/09/20 aspirin 81 mg tablet 81 mg PO DAILY #30 tabs 09/30/24 gabapentin 100 mg capsule 100 mg PO BID #30 caps 09/30/24 Allergies Allergy/AdvReac Type Severity Reaction Status Date / Time No Known Allergies Allergy Verified 09/30/24 09:12 Review of Systems Review of Systems: Yes all other systems are reviewed and are negative PMFSH Past Medical History Medical History (Updated 09/30/24 @ 14:24 by REMI Lee) HTN (hypertension) Leukopenia Surgical History Hx of bilateral breast reduction surgery S/P section S/P tubal ligation Family History Family History Father HTN (hypertension) Mother Diverticulosis Maternal Grandmother Diabetes Social History Social History (Updated 10/18/21 @ 14:53 by Yasemin Franco CMA) Household Members: Children Housing: House Are you a primary health care manager to a significant other at home: No Do you presently have visiting nurse or other home services: No Alcohol intake: current Alcohol intake frequency: holidays/special occasions only Alcohol type: wine Patient Tobacco Use Status: Never used Tobacco Advance Directives: No Advance Directives Information Provided: Yes service: No Current occupational status: employed Current occupation: [employer] Physical Exam Exam: Exam: Appearance: Alert. Oriented X3. No acute distress. Head: normocephalic, atraumatic. Eyes: Pupils equal, round and reactive to light. ENT: Pharynx normal. No tonsillar swelling or exudate. Neck: Normal inspection. Neck supple. CVS: Normal heart rate and rhythm. Pulses normal. Respiratory: No respiratory distress. Breath sounds normal. Abdomen: Soft and nontender. +BS x4 Skin: Skin warm and dry. Normal skin color. Normal skin turgor. No rashes. Extremities: No lower extremity edema. No joint swelling. Normal inspection and palpation of the upper extremities. NV intact. Neuro/psych: Oriented X 3. 4/5 strength of the LUE including hand grasp, upper arm, shoulder and lower Vital Signs: Vital Signs: Last Vital Signs Temp 97.6 F 09/30/24 11:22 Pulse 79 09/30/24 11:22 Resp 18 09/30/24 11:22 BP 123/84 09/30/24 11:22 Pulse Ox 100 09/30/24 11:22 O2 Del Method Room Air 09/30/24 11:22 BMI result Body Mass Index 32.2 Medical Decision Making Medical Decision Making MDM Narrative: 38 yo female presenting with LUE pain, numbness and weakness x3 weeks. similar sxs left thigh x1 week. history of similar but not as severe presentation last year and had normal MRI per her report. saw neurology at [facility] on exam she has some LUE weakness which may be limited by pain. no neck pain or tenderness CT scan of her head is showing a possible loss of mcneil-white matter differentiation in the left occipital lobe, which could reflect age indeterminate infarct. brain MRI was recommended and ordered. unfortunately unable to fit into MRI schedule today. her exam findings are not c/w the abnormality on her CT her symptoms have been going on for 3+ weeks. no change in her management. will plan to start aspirin and have her get outpatient MRI with her PCP who she will contact tomorrow will start low dose gabapentin as her pain seems neuropathic return precautions discussed and patient expressed understanding and agreement with plan for outpatient MRI Differential Diagnosis Differential Diagnoses: The differential diagnosis associated with the presentation includes cervical radiculopathy, neuropathy, CVA, MS, autoimmune disorder, idiopathic Admission/Observation Consideration of admission/observation: Escalation of care including admission/observation considered Lab Data MDM Lab Attestation statement: I reviewed the patient's lab results. normal THS, no metabolic derangement 09/30/24 10:49 09/30/24 10:49 Labs: Lab Results 09/30/24 Range/Units 10:49 WBC 3.1 L (4.8-10.8) X10*3/uL RBC 5.09 (4.20-5.50) X10*6/uL Hgb 14.2 (12.0-16.0) g/dl Hct 41.9 (37.0-47.0) % MCV 82.3 (80.0-98.0) fL MCH 27.9 (27.0-33.0) pg MCHC 33.9 (31.0-35.0) g/dl RDW 12.9 (11.0-16.0) % Plt Count 289 (160-400) X10*3/uL MPV 10.5 (9.4-12.3) fL Immature Gran % (Auto) 0.0 (0.0-0.4) % Neut % (Auto) 49.2 (45-73) % Lymph % (Auto) 38.4 (20-40) % Villalba % (Auto) 9.1 (2-11) % Eos % (Auto) 2.0 (0-4) % Baso % (Auto) 1.3 (0-2) % Lymph # (Auto) 1.2 (1.2-4.9) X10*3/uL Villalba # (Auto) 0.3 (0.1-1.2) X10*3/uL Eos # (Auto) 0.1 (0.0-0.4) X10*3/uL Baso # (Auto) 0.0 (0.0-0.2) X10*3/uL Abs Immat Gran (auto) 0.00 (0.00-0.03) X10*3/uL Absolute Neuts (auto) 1.5 L (2.0-8.3) x10*3/uL Absolute Nucleated RBC 0.000 (0.0-0.012) X10*3/uL Nucleated RBC % (auto) 0.0 (0.0-0.2) /100WBC Sodium 137 (135-145) mmol/L Potassium 3.6 (3.3-5.1) mmol/L Chloride 102 (96-108) mmol/L Carbon Dioxide 23 (22-29) mmol/L Anion Gap 16 (12-20) BUN 10 (9-16) mg/dL Creatinine 0.68 (0.5-1.4) mg/dL Estim Creat Clear Calc 109.7 Estimated GFR > 60 Random Glucose 82 (60-115) mg/dL Calcium 9.5 (8.4-10.2) mg/dL Magnesium 2.0 (1.6-2.6) mg/dL Total Bilirubin 0.6 (0.0-1.0) mg/dL Direct Bilirubin 0.2 (0.0-0.5) mg/dL AST 24 (5-31) U/L ALT 13 (0-31) U/L Alkaline Phosphatase 56 (39-117) U/L Total Protein 8.3 H (6.5-8.0) g/dL Albumin 4.6 (3.5-5.0) g/dL TSH 0.94 (0.32-4.0) uIU/mL Independent Interpretation I performed an independent interpretation of an: CT Scan Interpretation: no overt bleed or edema Radiology Impression Discussion of test interpretation with radiology: I discussed test interpretation with the radiologist and I have reviewed the radiologist's reading. Independent Historian Clinical information obtained from an independent historian. History obtained from or confirmed by: Spouse External Record Review External record reviewed: Prior outpatient labs and Prior outpatient radiology Prescription Management I considered prescription management with: Pain Medication Chronic Conditions Patient?s care impacted by: Hypertension and Other (+ rheumatoid factor) Critical Care Time Critical Care Time Critical Care Time: No Discharge Plan Discharge Clinical Impression: Paresthesia and pain of left extremity Patient Disposition: Home, Self-Care Instructions: Paresthesia (ED) Additional Instructions: Recommend following up with your PCP for outpatient MRI Recommend Neurology follow up for additional workup of your symptoms Recommend trial of gabapentin 100 mg two time per day to start, if this helps it can be titrated up by your PCP Recommend starting daily aspirin 81 mg Recommend following up with Rheumatology for further workup of RF+ If you develop new or worsening symptoms call 911 or come back to the ER for further evaluation. EXAMINATION: CT HEAD WITHOUT CONTRAST CLINICAL INFORMATION: LUE?/LLE pain, numbness, tingling, weakness COMPARISON: None available. FINDINGS: Streak artifacts from patient's bilateral earrings limit local evaluation. Brain parenchyma: There is a somewhat asymmetric area with suggestion of loss of hector-white matter differentiation in the left occipital lobe (for example 4:18). No parenchymal hemorrhage. Ventricles/extra-axial spaces: No hydrocephalus. No extra-axial fluid collection. Extracranial structures: Polypoid mucosal thickening of the right maxillary sinus. Remaining paranasal sinuses are clear. Bilateral mastoid air cells are clear. Bilateral orbital globes are unremarkable. CT/CT head/brain wo IV con IMPRESSION: Possible loss of hector-white matter differentiation in the left occipital lobe, which could reflect an area of age-indeterminate infarct. Brain MRI without contrast is recommended for further evaluation. EXAMINATION: CT CERVICAL SPINE WITHOUT CONTRAST CLINICAL INFORMATION: Left upper extremity tingling, pain and numbness COMPARISON: None available. FINDINGS: Craniocervical junction is intact with normal alignment between the occipital condyles and lateral masses of C1. C1 is intact. C2 is intact. C3 is intact. C4 is intact. C5 is intact. C6 is intact. C7 is intact. Small marginal osteophyte formation at C5-6 and C6-7. Mild reverse curvature apex at C5-6. Mild decreased intervertebral disc height at C5-6 and C6-7. No gross prevertebral compartment hematoma. There is a 15 mm dominant nodule left thyroid lobe. Tympanic cavities and mastoid cells are aerated. CT/CT cervical spine wo IV con IMPRESSION: Cervical spondylosis C5-6 and C6-7 levels. Prescriptions: New gabapentin 100 mg capsule 100 mg PO BID Qty: 30 0RF aspirin 81 mg tablet 81 mg PO DAILY Qty: 30 0RF No Action hydrochlorothiazide 12.5 mg Tablet 12.5 mg PO DAILY lisinopril 5 mg tablet 5 mg PO DAILY Qty: 30 5RF Referrals: [facility] [Provider Group, Rheumatology] Referral Note: +RF, left sided neuropathy Juarez Quintana MD [Primary Care Provider, Medical] Stand Alone Forms: Work/School Release Print Language: Malaysian
--- OUTSIDE RECORDS SUMMARY | 2024-09-30 10:25 | XMS_ITS | Encounter Summary ---
Author Organization [employer] Address [address] [place] [address] Care Team Providers Care Inspector Subassembly Name Role Phone Juarez Quintana MD Primary Care Prov ider Reason for Visit * Reason Onset Date Comments Results 09/28/2024 Encounter Details Date Type Department Care Team ([facility] Contact Info) Description 09/28/2024 Telephone [facility] [address] [place], [place] [phone] Juarez Quintana MD [address] [place] [address] Results Social History Tobacco Use Types Packs/Day Years [...] encounter Miscellaneous Notes * Telephone Encounter - Cristal Jackson RN - 09/28/2024 11:59 AM EDT TC to pt to inform of normal x-ray results. No answer. VM left instructing pt to return call to office or respond over [employer]. * Telephone Encounter - Kash Chandra - 09/28/2024 11:52 AM EDT TC from pt requesting call back regarding Results. Type of results: Hand Xray Date when done: pt stated 2 months ago Facility: [facility] [place] Primary care [phone] Contact pt at [phone] documented in this encounter Plan of Treatment Not on file documented as of this encounter Visit Diagnoses Not on filedocumented in this encounter Care Teams Inspector Subassembly Relationship Specialty Start Date End Date Juarez Quintana MD [address] [place] [id number] PCP - General Internal Medicine 07/18/19 documented as of this encounter
[2024-09-30 10:57] LABS: MANUAL DIFF FLAG NO
[2024-09-30 11:01] LABS: Hematocrit 41.9 % (37.0-47.0); Hemoglobin 14.2 g/dl (12.0-16.0); Imm Gran Abs Auto 0.00 X10*3/uL (0.00-0.03); Imm Gran Pct Auto 0.0 % (0.0-0.4); Lymphocytes Absolute Auto 1.2 X10*3/uL (1.2-4.9); Mean Corpuscular HGB Conc 33.9 g/dl (31.0-35.0); Mean Corpuscular Hemoglobin 27.9 pg (27.0-33.0); Mean Corpuscular Volume 82.3 fL (80.0-98.0); NRBC Abs Auto 0.000 X10*3/uL (0.0-0.012); NRBC Pct Auto 0.0 /100WBC (0.0-0.2); Platelet Count 289 X10*3/uL (160-400); Red Blood Count 5.09 X10*6/uL (4.20-5.50); White Blood Count 3.1 X10*3/uL (4.8-10.8)
[2024-09-30 11:21] LABS: Alanine Aminotransferase 13 U/L (0-31); Albumin Level 4.6 g/dL (3.5-5.0); Alkaline Phosphatase 56 U/L (39-117); Anion Gap 16 (12-20); Aspartate Amino Transferase 24 U/L (5-31); Blood Urea Nitrogen 10 mg/dL (9-16); Calcium 9.5 mg/dL (8.4-10.2); Carbon Dioxide 23 mmol/L (22-29); Chloride 102 mmol/L (96-108); Creatinine Clr Calc Pharmacy 109.7; Estimated Glomerular Filt Rate > 60; Magnesium 2.0 mg/dL (1.6-2.6); Potassium 3.6 mmol/L (3.3-5.1); Sodium 137 mmol/L (135-145); Total Protein 8.3 g/dL (6.5-8.0)
[2024-09-30 11:22] VITALS: BP 123/84; PULSE 79; RESP 18; TEMP 36.4; O2SAT 100
--- NOTE | 2024-09-30 11:47 | MHC.EDTECH ---
Pt changed into hospital gown, vitals obtained and documented
[2024-09-30 14:39] VITALS: BP 118/81; PULSE 94; RESP 14; TEMP 36.7; O2SAT 96
[2024-09-30 14:46] VITALS: BP 118/81; PULSE 94; RESP 14; TEMP 36.7; O2SAT 96
== END 2024-09-30 14:46 | disposition home or self-care (01) ==
PROVIDERS: Physician Assistant; Emergency Provider Emergency Medicine; PCP Internal Medicine
DX: R20.2 Paresthesia of skin (principal); R20.0 Anesthesia of skin; M79.622 Pain in left upper arm
CPT/HCPCS: 36415; 70450; 72125; 80048; 80076; 83735; 84443; 85025; 93005; 99284

== ENCOUNTER → 2024-09-30 09:13 | Outpatient (BNV) | payer MEDICAID, SELFPAY | PROVIDERS: Emergency Provider Emergency Medicine; PCP Internal Medicine; Visit Provider Internal Medicine Cardiovascular Disease | DX: Z13.6 Encounter for screening for cardiovascular disorders (principal) | CPT/HCPCS: 93010 ==

== ENCOUNTER → 2024-09-30 09:51 | Outpatient (BNV) | payer MEDICAID, SELFPAY | PROVIDERS: Emergency Provider Emergency Medicine; PCP Internal Medicine; Visit Provider Radiology Diagnostic Radiology | DX: M50.322 Other cervical disc degeneration at C5-C6 level (principal); R20.0 Anesthesia of skin | CPT/HCPCS: 70450; 72125 ==

== ENCOUNTER → 2024-12-13 19:37 | Outpatient (BNV) | payer MEDICAID, SELFPAY | PROVIDERS: PCP Internal Medicine; Visit Provider Radiology Diagnostic Radiology | DX: R90.89 Other abnormal findings on diagnostic imaging of central nervous system (principal) | CPT/HCPCS: 70551 ==

== ENCOUNTER 2024-12-13 19:38 | Outpatient (REF) | payer MEDICAID, SELFPAY ==
--- NOTE | ~2024-12-13 | MR_ITS ---
EXAMINATION: MR BRAIN WITHOUT CONTRAST CLINICAL INFORMATION: Loss of walker-white matter versus artifact, left occipital. COMPARISON: Correlated to CT dated September 30, 2024. TECHNIQUE: MRI of the brain was obtained using routine sequences without contrast. FINDINGS: No restricted diffusion. No acute intracranial hemorrhage, mass effect, midline shift, hydrocephalus or herniation. Walker-white matter differentiation is normal. Posterior cranial fossa contents demonstrated no signal abnormality or mass effect. Cerebral/suprasellar region is normal. Craniocervical junction is intact with normal position of the cerebellar tonsils. Small retention cyst, right ethmoid air cells. MR/MR head/brain wo con IMPRESSION: No acute or structural brain abnormality. Electronically signed by: Fritz Colon MD 12/14/2024 06:40 AM EDT
--- OUTSIDE RECORDS SUMMARY | 2024-12-13 19:48 | XMS_ITS | Clinical Summary ---
Author Organization [employer] Address [address] [facility] [address] [place] [address] Care Team Providers Care Water Quality Tester Name Role Phone Juarez Quintana MD Primary Care Prov ider Allergies No known active allergies Medications acetaminophen (Tylenol) 500 MG tablet Take 2 tablets by mouth if needed in the morning, at noon, in the evening, and at bedtime. 0 Active ibuprofen 400 MG tablet Take 1 tablet by mouth if needed in the morning, at noon, in the evening, and at bedtime. Take 1 tablet by oral route every 6 hours as needed for pain and/or fever 0 Active methocarbamol (Robaxin) 750 MG tablet Take 1 tablet (750 mg) by mouth 3 times daily for 14 days. 42 tablet 4 Active Diclofenac Sodium (Voltaren) 1 % gel Apply 2 g topically 3 times daily. 300 g 1 4 Active Blood Pressure kit 1 kit Once per day. 1 kit 4 Active Transderm-Scop 1 MG/3DAYS patch [address] 1 PATCH ON THE SKIN EVERY 3RD DAY. 10 patch 5 Active Transderm-Scop 1 MG/3DAYS patch 72 hour APPLY 1 PATCH ONTO SKIN EVERY THIRD DAY 10 patch 1 5 Active valsartan (Diovan) 80 MG tablet Take 1 tablet (80 mg) by mouth Once per day. 90 tablet 3 5 04/13/19 26 Active hydroCHLOROthiazi de 12.5 MG tabletIndications :Primary hypertension Take 1 tablet (12.5 mg) by mouth Once per day. 90 tablet 3 5 04/13/19 26 Active Diclofenac Sodium (Voltaren) 1 % gel Use topical BID 100 g 3 5 Active Active Problems Problem Noted Date Diagnosed Date Primary hypertension 03/12/2024 Assessment & Plan (07/30/2024 1:07 PM EDT): Controlled, at home refers has maintained below 140/90, no changes will be made, continue low sodium diet and exercise as tolerated Assessment & Plan (03/12/2024 11:46 AM EST): Patient has not been monitoring her blood pressure, she is on hydrochlorothiazide and valsartan, encouraged home monitoring, bp target <140/90, Thyroid nodule 03/12/2024 Assessment & Plan (03/12/2024 11:47 AM EST): Patient had thyroid nodule biopsy done 05/2023, no results on chart, will refer to endocrinology, Aching headache 09/23/2023 Assessment & Plan (11/29/2024 9:06 PM EDT): Seen at er due to tingling/numbness, she then recovered back to normal, symptoms lasted for a few seconds, she was seen at er, ct scan showed artifact vs loss of hector matter, will order MRI Assessment & Plan (09/23/2023 1:02 PM EDT): [...] Encounters Date Type Department Care Team Description 2024 11:30 AM EDT Telemedicine [facility] [address] [place] [address] Juarez Quintana MD Aching headache (Primary Dx) 10/04/2024 Telephone [facility] [address] [place] [address] Juarez Quintana MD chart prep 10/02/2024 Travel 09/30/2024 Telephone [facility] [address] [place] [address] Juarez Quintana MD ER Follow-up; Referral 09/30/2024 Orders Only [facility] External Provider, [facility] 09/28/2024 Telephone [facility] [address] [place] [address] Juarez Quintana MD Results from Last 3 Months Immunizations Immunization Administration Dates Next Due Tdap 07/16/2013 Social [...] Sign Reading Time Taken Comments Blood Pressure 142/92 05/07/2024 11:04 AM EDT Pulse 75 05/07/2024 11:04 AM EDT Temperature 36.2 C (97.1 F) 05/07/2024 11:04 AM EDT Respiratory Rate 18 05/07/2024 11:04 AM EDT Oxygen Saturation 98% 09/23/2023 9:06 AM EDT Inhaled Oxygen Concentration - - Weight 79.4 kg (175 lb) 05/07/2024 11:04 AM EDT Height 157.5 cm (5' 2 ) 05/07/2024 11:04 AM EDT Body Mass Index 32.01 05/07/2024 11:04 AM EDT Plan of Treatment Health Maintenance Due Date Last Done Comments Alcohol/Substance Use Screening 1997 Family Planning (PISQ) 2000 HPV Vaccines (1 - 3-dose series) 2000 Hepatitis B Vaccines (1 of 3 - 19+ 3-dose series) 2004 Pap Smear 2006 Cervical Cancer Screening 10/06/2015 HPV/Cotest 10/06/2015 DTaP/Tdap/Td Vaccines (2 - T d or Tdap) 07/17/2023 07/16/2013 SDOH Screening 08/17/2024 08/18/2023 Depression Screening 09/22/2024 09/23/2023, 09/23/2023 COVID-19 Vaccine (4 - 2024-2 6 season) 2024 02/28/2021, 06/06/2020, 05/07/2020 Influenza Vaccine (#1) 2024 Disability Screening 03/11/2025 03/11/2024 Tobacco Screening 05/07/2025 05/07/2024 Lipid Panel 09/29/2028 09/30/2023, 07/12/2021 Zoster Vaccines [...] patient's age to complete this topic Meningococcal B Vaccine Aged Out No l onger eligible based on patient's age to complete this topic Meningococcal Vaccine Aged Out No felicita al eligible based on patient's age to complete this topic Pneumococcal Vaccine: Pediatrics (0 to 5 Years) and At-Risk Patients (6 to 49) Years Aged Out No longer eligible b ased on patient's age to complete this topic RSV under 20 months Aged Out No longe r eligible based on patient's age to complete this topic Rotavirus Vaccines Aged Out No longer eligible based on patient's age to complete this topic Procedures Procedure Name Priority Date/Time Associated Diagnosis Comments TSH W/REFLEX TO FT4 Routine 09/30/2024 1 0:49 AM EDT MAGNESIUM Routine 09/30/2024 10:49 AM EDT BASIC METABOLIC PANEL Routine 09/30/2024 10:49 AM EDT HEPATIC FUNCTION PANEL Routine 09/30/2024 10:49 AM EDT CBC WITH AUTO DIFFERENTIAL Routine 09/30/2024 10:[address] HEAD WO CONTRAST Routine 09/30/2024 9 :[address] CERVICAL SPINE WO CONTRAST Routine 09/30/2024 9:23 AM EDT HEPATITIS C AB W/REFL TO HCV RNA, QN, PCR Routine 09/30/2023 8:10 AM EDT Primary hypertension HIV 1/2 ANTIGEN/ANTIBODY, FOURTH GENERATION W/RFL Routine 09/30/2023 8:10 AM EDT Primary hypertension LIPID PANEL, STANDARD Routine 09/30/2023 8:10 AM EDT Primary hypertension from Last 3 Months or Most Recently Relevant to Health Maintenance Results * TSH with Reflex to Free T4 (09/30/2024 10:49 AM EDT) TSH reflex Free T4 0.94 0.32 - 4.0 uIU/mL [facility] 09/30/2024 10:4 9 AM EDT 09/30/2024 10:54 AM EDT us Generic External Data Provider LAB BLOOD ORDERAB LES Final Result [facility] [address] [place] [phone] * (ABNORMAL) CBC auto differential (09/30/2024 10:49 AM EDT) White Blood Count 3.1(L) 4.8 - 10.8 X10*3/uL [facility] Red Blood Count 5.09 4.20 - 5.50 X10*6/uL [facility] Hemoglobin 14.2 12.0 - 16.0 g/dl [facility] Hematocrit 41.9 37.0 - 47.0 % [facility] Mean Corpuscular Volume 82.3 80.0 - 98.0 fL [facility] Mean Corpuscular Hemoglobin 27.9 27.0 - 33.0 pg [facility] Mean Corpuscular HGB Conc 33.9 31.0 - 35.0 g/dl [facility] Red Cell Distribution Width 12.9 11.0 - 16.0 % [facility] Platelet Count 289 160 - 400 X10*3/uL [facility] Mean Platelet Volume 10.5 9.4 - 12.3 fL [facility] Neutrophils Percent Auto 49.2 45 - 73 % [facility] Imm Gran Pct Auto 0.0 0.0 - 0.4 % [facility] Lymphocytes Percent Auto 38.4 20 - 40 % [facility] Monocytes Percent Auto 9.1 2 - 11 % [facility] Eosinophils Percent Auto 2.0 0 - 4 % [facility] Basophils Percent Auto 1.3 0 - 2 % [facility] NRBC Pct Auto 0.0 0.0 - 0.2 /100WBC [facility] Neutrophils Absolute Auto 1.5(L) 2.0 - 8.3 x10*3/uL [facility] Imm Gran Abs Auto 0.00 0.00 - 0.03 X10*3/uL [facility] Lymphocytes Absolute Auto 1.2 1.2 - 4.9 X10*3/uL [facility] Monocytes Absolute Auto 0.3 0.1 - 1.2 X10*3/uL [facility] Eosinophils Absolute Auto 0.1 0.0 - 0.4 X10*3/uL [facility] Basophils Absolute Auto 0.0 0.0 - 0.2 X10*3/uL [facility] NRBC Abs Auto 0.000 0.0 - 0.012 X10*3/uL [facility] 09/30/2024 10:4 9 AM EDT 09/30/2024 10:54 AM EDT us Generic External Data Provider LAB BLOOD ORDERAB LES Final Result [facility] [address] [place] [phone] * Magnesium (09/30/2024 10:49 AM EDT) Magnesium 2.0 1.6 - 2.6 mg/dL [facility] 09/30/2024 10:4 9 AM EDT 09/30/2024 10:54 AM EDT Generic External Data Provider LAB BLOOD ORDERAB LES Final Result Performing Organization Address City/[facility]/ZIP Co de Phone Number [facility] [address] [place] [phone] * (ABNORMAL) Hepatic Function Panel (09/30/2024 10:49 AM EDT) Bilirubin, Total 0.6 0.0 - 1.0 mg/dL [facility] Bilirubin, Direct 0.2 0.0 - 0.5 mg/dL [facility] Aspartate Amino Transferase 24 5 - 31 U/L [facility] Alanine Aminotransferase 13 0 - 31 U/L [facility] Total Protein 8.3(H) 6.5 - 8.0 g/dL [facility] Albumin Level 4.6 3.5 - 5.0 g/dL [facility] Alkaline Phosphatase 56 39 - 117 U/L [facility] 09/30/2024 10:4 9 AM EDT 09/30/2024 10:54 AM EDT Generic External Data Provider LAB BLOOD ORDERAB LES Final Result Performing Organization Address [facility] de Phone Number [facility] [address] [place] [phone] * Basic Metabolic Panel (09/30/2024 10:49 AM EDT) Sodium 137 135 - 145 mmol/L [facility] Potassium 3.6 3.3 - 5.1 mmol/L [facility] Chloride 102 96 - 108 mmol/L [facility] Carbon Dioxide 23 22 - 29 mmol/L [facility] Anion Gap 16 12 - 20 [facility] Urea Nitrogen (BUN) 10 9 - 16 mg/dL [facility] Creatinine, Serum 0.68 0.5 - 1.4 mg/dL [facility] Creatinine Clr Calc Pharmacy 109.7 [facility] Comment:Provided height and weight: 157.48 cm,79.8 kg.eGFR (calculated from the MDRD study equation) and eCrCl(calculated from the Cockcroft-Gault equation) are based ondifferent parameters and may not yield comparable results.If eCrCl result is absurd, please check patient'sheight/weight. Estimated Glomerular Filt Rate >60 [facility] Comment:Chronic Kidney Disea se: Estimated GFR < 60 mL/min/1.86c0Nldqwh Kidney Disease: Estimated GFR < 15 mL/min/1.73m2 Glucose 82 60 - 115 mg/dL [facility] Calcium 9.5 8.4 - 10.2 mg/dL [facility] 09/30/2024 10:4 9 AM EDT 09/30/2024 10:54 AM EDT us Generic External Data Provider LAB BLOOD ORDERAB LES Final Result Performing Organization Address City/State/[facility] Co de Phone Number [facility] [address] [place] [phone] * CT Cervical Spine w/o Contrast (09/30/2024 9:23 AM EDT) Anatomical Region Laterality Modality Spine, C-spine Computed Tomogra phy 09/30/2024 9:23 AM EDT Narrative 09/30/2024 11:00 AM EDT [address] [address] [address] Scan Report Signed Patient: Sally Her MR#: [id number] : 1985 Acct:[id number] Age/Sex: 38 / F ADM Date: 09/30/24 Loc: HO.ED Attending Dr: Ordering Physician: Kori Patton Date of Service: 09/30/24 Procedure(s): CT cervical spine wo IV con Accession Number(s): [id number] cc: Juarez Quintana MD; Kori Patton Report Number: [id number]: Total DLP = 967.48 mGy-cm EXAMINATION: CT CERVICAL SPINE WITHOUT CONTRAST CLINICAL INFORMATION: Left upper extremity tingling, pain and numbness COMPARISON: None available. TECHNIQUE: Contiguous axial images through the cervical spine using 3 mm collimation with bone and soft tissue algorithm. Sagittal and coronal reformatted images acquired. DLP: 340.[address] examination was performed using dose optimization techniques as appropriate, variously including the following: *Automated exposure control *Adjustment of mA and/or kV according to patient size (this includes techniques or standardized protocols for targeted exams where dose is matched to indication/reason for exam; i.e. extremities or head) *Use of iterative reconstruction technique FINDINGS: Craniocervical junction is intact with normal alignment between the occipital condyles and lateral masses of C1. C1 is intact. C2 is intact. C3 is intact. C4 is intact. C5 is intact. C6 is intact. C7 is intact. Small marginal osteophyte formation at C5-6 and C6-7. Mild reverse curvature apex at C5-6. Mild decreased intervertebral disc height at C5-6 and C6-7. No gross prevertebral compartment hematoma. There is a 15 mm dominant nodule left thyroid lobe. Tympanic cavities and mastoid cells are aerated. CT/CT cervical spine wo IV con IMPRESSION: Cervical spondylosis C5-6 and C6-7 levels. Fleischner guidelines were followed. Electronically signed by: Fritz Colon MD 09/30/2024 10:57 AM EDT Dictated By: Fritz Morocho MD Signed By: <Electronically signed by Fritz Chacko MD in OV> 09/30/24 1057 DD/ 0923 TD/TT: 09/30/24 1046 Kit Assembler: Procedure Note Donotuseinterpreter, Image - 09/30/[address] [address] [address] Scan Report Signed Patient: Sally HerMR#: [id number] : 1985Acct:[id number] Age/Sex: 38 / FADM Date: 09/30/24 Loc: HO.ED Attending Dr: Ordering Physician: Kori Patton Date of Service: 09/30/24 Procedure(s): CT cervical spine wo IV con Accession Number(s): [id number] cc: Juarez Quintana MD; Kori Patton Report Number: [id number]: Total DLP = 967.48 mGy-cm EXAMINATION: CT CERVICAL SPINE WITHOUT CONTRAST CLINICAL INFORMATION: Left upper extremity tingling, pain and numbness COMPARISON: None available. TECHNIQUE: Contiguous axial images through the cervical spine using 3 mm collimation with bone and soft tissue algorithm. Sagittal and coronal reformatted images acquired. DLP: 340.[address] examination was performed using dose optimization techniques as appropriate, variously including the following: *Automated exposure control *Adjustment of mA and/or kV according to patient size (this includes techniques or standardized protocols for targeted exams where dose is matched to indication/reason for exam; i.e. extremities or head) *Use of iterative reconstruction technique FINDINGS: Craniocervical junction is intact with normal alignment between the occipital condyles and lateral masses of C1. C1 is intact. C2 is intact. C3 is intact. C4 is intact. C5 is intact. C6 is intact. C7 is intact. Small marginal osteophyte formation at C5-6 and C6-7. Mild reverse curvature apex at C5-6. Mild decreased intervertebral disc height at C5-6 and C6-7. No gross prevertebral compartment hematoma. There is a 15 mm dominant nodule left thyroid lobe. Tympanic cavities and mastoid cells are aerated. CT/CT cervical spine wo IV con IMPRESSION: Cervical spondylosis C5-6 and C6-7 levels. Fleischner guidelines were followed. Electronically signed by: Fritz Colon MD 09/30/2024 10:57 AM EDT Dictated By: Fritz Morocho MD Signed By: <Electronically signed by Fritz Chacko MDin OV> 09/30/24 1057 DD/ 0923 TD/TT: 09/30/24 1046 Kit Assembler: [facility] External Provider IMG CT PROCEDURES Final Result * CT Head w/o Contrast (09/30/2024 9:23 AM EDT) Anatomical Region Laterality Modality Head, Neck Computed Tomogra phy 09/30/2024 9:23 AM EDT Narrative 09/30/2024 11:24 AM EDT [address] [address] [address] Scan Report Signed Patient: Sally Her MR#: [id number] : 1985 Acct:[id number] Age/Sex: 38 / F ADM Date: 09/30/24 Loc: HO.ED Attending Dr: Ordering Physician: Kori Patton Date of Service: 09/30/24 Procedure(s): CT head/brain wo IV con Accession Number(s): [id number] cc: Juarez Quintana MD; Kori Patton Report Number: [id number]: Total DLP = 0.00 mGy-cm EXAMINATION: CT HEAD WITHOUT CONTRAST CLINICAL INFORMATION: LUE?/LLE pain, numbness, tingling, weakness COMPARISON: None available. TECHNIQUE: Contiguous axial imaging was performed from the skull base to vertex without intravenous administration of contrast. This CT examination was performed using dose optimization techniques as appropriate, variously including the following: *Automated exposure control *Adjustment of mA and/or kV according to patient size (this includes techniques or standardized protocols for targeted exams where dose is matched to indication/reason for exam; i.e. extremities or head) *Use of iterative reconstruction technique FINDINGS: Streak artifacts from patient's bilateral earrings limit local evaluation. Brain parenchyma: There is a somewhat asymmetric area with suggestion of loss of hector-white matter differentiation in the left occipital lobe (for example 4:18). No parenchymal hemorrhage. Ventricles/extra-axial spaces: No hydrocephalus. No extra-axial fluid collection. Extracranial structures: Polypoid mucosal thickening of the right maxillary sinus. Remaining paranasal sinuses are clear. Bilateral mastoid air cells are clear. Bilateral orbital globes are unremarkable. CT/CT head/brain wo IV con IMPRESSION: Possible loss of hector-white matter differentiation in the left occipital lobe, which could reflect an area of age-indeterminate infarct. Brain MRI without contrast is recommended for further evaluation. Abnormal finding described in the impression communicated via secure message system to the ordering provider REMI Lee at approximately 11:10 AM on September 30, 2024. Awaiting read confirmation. Electronically signed by: Ascencion Fall MD 09/30/2024 11:21 AM EDT RP Dictated By: Ascencion Fall MD Signed By: <Electronically signed by Ascencion Fall MD in OV> 09/30/24 1121 DD/ 0923 TD/TT: 09/30/24 1046 Kit Assembler: Procedure Note Donotuseinterpreter, Image - 09/30/[address] [place] [address] [address] Scan Report Signed Patient: Sally Her#: [id number] : 1985Acct:[id number] Age/Sex: 38 / FADM Date: 09/30/24 Loc: HO.ED Attending Dr: Ordering Physician: Kori Patton Date of Service: 09/30/24 Procedure(s): CT head/brain wo IV con Accession Number(s): [id number] cc: Juarez Quintana MD; Kori Patton Report Number: [id number]: Total DLP = 0.00 mGy-cm EXAMINATION: CT HEAD WITHOUT CONTRAST CLINICAL INFORMATION: LUE?/LLE pain, numbness, tingling, weakness COMPARISON: None available. TECHNIQUE: Contiguous axial imaging was performed from the skull base to vertex without intravenous administration of contrast. This CT examination was performed using dose optimization techniques as appropriate, variously including the following: *Automated exposure control *Adjustment of mA and/or kV according to patient size (this includes techniques or standardized protocols for targeted exams where dose is matched to indication/reason for exam; i.e. extremities or head) *Use of iterative reconstruction technique FINDINGS: Streak artifacts from patient's bilateral earrings limit local evaluation. Brain parenchyma: There is a somewhat asymmetric area with suggestion of loss of hector-white matter differentiation in the left occipital lobe (for example 4:18). No parenchymal hemorrhage. Ventricles/extra-axial spaces: No hydrocephalus. No extra-axial fluid collection. Extracranial structures: Polypoid mucosal thickening of the right maxillary sinus. Remaining paranasal sinuses are clear. Bilateral mastoid air cells are clear. Bilateral orbital globes are unremarkable. CT/CT head/brain wo IV con IMPRESSION: Possible loss of hector-white matter differentiation in the left occipital lobe, which could reflect an area of age-indeterminate infarct. Brain MRI without contrast is recommended for further evaluation. Abnormal finding described in the impression communicated via secure message system to the ordering provider REMI Lee at approximately 11:10 AM on September 30, 2024. Awaiting read confirmation. Electronically signed by: Ascencion Fall MD 09/30/2024 11:21 AM EDT RP Dictated By: Ascencion Flal MD Signed By: <Electronically signed by Ascencion Fall MD in OV> 09/30/24 1121 DD/ 0923 TD/TT: 09/30/24 1046 Kit Assembler: [facility] External Provider IMG CT PROCEDURES Final Result * Hepatitis C Antibody with Reflex to HCV, RNA, Quantitative, Real-Time PCR (09/30/2023 8:10 AM EDT) Hepatitis C Antibody Nonreactive Nonreactive [facility] Comment:Antibodies to HCV no t detected; does not exclude early acuteHCV infection. Blood Venous blood specimen / Unknown 09/30/2023 8:10 AM EDT 09/30/2023 2:36 PM EDT Juarez Franco MD LAB BLOOD ORDERABL ES Final Result [facility] [address] [place] [phone] * HIV-1/2 Antigen and Antibodies, Fourth Generation, with Reflexes (09/30/2023 8:10 AM EDT) HIV AB/AG Nonreactive Nonreactive [facility] Comment:HIV-1 p24 Ag and/or HIV-1/HIV-2 Ab not detected.A test result that is nonreactive does not exclude thepossibility of exposure to or infection with HIV-1 and/orHIV-2. Nonreactive results in this assay for individualswith prior exposure to HIV-1 and/or HIV-2 may be due toantigen and antibody levels that are below the limit ofdetection of this assay.The [employer] HIV Ag/Ab Combo assay result andsupplemental assay results should be interpreted inconjunction with the patient's clinical presentation,history and other laboratory results. If the results areinconsistent with clinical evidence, additional testing issuggested to confirm the result. Blood Venous blood specimen / Unknown 09/30/2023 8:10 AM EDT 09/30/2023 2:36 PM EDT Juarez Franco MD LAB BLOOD ORDERABL ES Final Result [facility] [address] [place] [address] [phone] * (ABNORMAL) Lipid Panel, Standard (09/30/2023 8:10 AM EDT) Triglycerides 102 <150 mg/dL [facility] Comment:Desirable Triglyceri de: less than 150 mg/dLBorderline High Triglyceride 150-199 mg/dLHigh Triglyceride: 200-499 mg/dLVery High Triglyceride: greater than or equal to 5OO mg/dL Cholesterol 208(H) <200 mg/dL [facility] Comment:Desirable Cholestero l: less than 200 mg/dLBorderline High Cholesterol: 200-239 mg/dLHigh Cholesterol: greater than 239 mg/dL LDL Cholesterol Calculated 133(H) <100 mg/dL [facility] Comment:Desirable LDL: less than 100 mg/dLNear Optimal/Above Optimal LDL: 110- 129 mg/dLBorderline High LDL: 130-159 mg/dLHigh LDL: 160-189 mg/dLVery High LDL: greater than or equal to 190 mg/dL HDL Cholesterol 55 >40 mg/dL [facility] Comment:Desirable HDL: great er than 40 mg/dL Note: This HDL assay may give artificially low results in patients with liver disease. Blood Venous blood specimen / Unknown 09/30/2023 8:10 AM EDT 09/30/2023 2:36 PM EDT us Juarez Franco MD LAB BLOOD ORDERABL ES Final Result [facility] [address] [place] [phone] from Last 3 Months or Most Recently Relevant to Health Maintenance [place] [place] [address] C3 Care Teams Water Quality Tester Relationship Specialty Start Date End Date Juarez Quintana MD [address] [place] [phone] PCP - General Internal Medicine 07/18/19
== END 2024-12-13 19:39 | disposition home or self-care (01) ==
LOC: HO.MRI 19:38
PROVIDERS: PCP Internal Medicine; Visit Provider Internal Medicine
DX: R51.9 Headache, unspecified (principal)
CPT/HCPCS: 70551

== ENCOUNTER 2025-01-11 16:18 | Outpatient (REF) | payer MEDICAID, SELFPAY ==
--- OUTSIDE RECORDS SUMMARY | 2025-01-11 09:40 | XMS_ITS | Encounter Summary ---
Author Organization [employer] Address [address] [place] [address] Care Team Providers Care Grinder Chipper Name Role Phone Juarez Quintana MD Primary Care Prov ider Reason for Referral * Consultation (Routine) - Pending Review Specialty Diagnoses / Procedures Referred By Contmauri t Referred To Contact General Surgery Diagnoses Abscess Brit Jovel MD [address] [place] [address] Phone: tel: fax: Referral ID Status Reason Start Date Expiration Date Visits Requested Visits Authorized [id number] Pending Review Specialty Services Required 01/11/2026 1 1 Reason for Visit * Reason Comments Right breast mass Encounter Details Date Type Department Care Team (Late st Contact Info) Description 01/11/2025 9:40 AM EST Office Visit [facility] [address] [place] [address] Brit Jovel MD [address] [place] [address] Cellulitis, unspecified cellulitis site (Primary Dx); Abscess Social History Tobacco Use Types Packs/Day Years [...] Sign Reading Time Taken Comments Blood Pressure 118/80 01/11/2025 10:40 AM EST Pulse 78 01/11/2025 10:40 AM EST Temperature 36.3 C (97.4 F) 01/11/2025 10:40 AM EST Respiratory Rate 20 01/11/2025 10:40 AM EST Oxygen Saturation 98% 01/11/2025 10:40 AM EST Inhaled Oxygen Concentration - - Weight 76.4 kg (168 lb 6.4 oz) 01/11/2025 10:40 AM EST Height 160 cm (5' 3 ) 01/11/2025 10:40 AM EST Body Mass Index 29.83 01/11/2025 10:40 AM EST documented in this encounter Plan of Treatment Upcoming Encounters Date Type Department Care Team (Late st Contact Info) Description 01/19/2025 2:00 PM EST Telemedicine [facility] [address] [place] [address] Juarez Quintana MD [address] [place] [address] Scheduled Orders Name Type Priority Associated Diagnoses Orde r Schedule MRSA Nasal Screen Microbiology Routine Abscess Expected: 01/11/2025 (Approximate), Expires: 01/11/2026 Scheduled Referrals Name Type Priority Associated Diagnoses Orde r Schedule Referral to General Surgery Outpatient Referral Routine Abscess Expected: 01/11/2025 (Approximate), Expires: 01/11/2026 documented as of this encounter Visit Diagnoses Diagnosis Cellulitis, unspecified cellulitis site- Primary Abscess Cellulitis and abscess of unspecified site documented in this encounter Care Teams Grinder Chipper Relationship Specialty Start Date End Date ChandlerJuarez Davis MD [address] [place] [phone] PCP - General Internal Medicine 07/18/19 documented as of this encounter
--- OUTSIDE RECORDS SUMMARY | 2025-01-11 19:29 | XMS_ITS | Encounter Summary ---
Author Organization [employer] Address [address] [place] [address] Care Team Providers Care Regional Sales Executive Name Role Phone Juarez Quintana MD Primary Care Prov ider Encounter Details Date Type Department Care Team (Latest Contact Info) Description 01/11/2025 Travel Social History Tobacco Use Types Packs/Day [...] Info) Description 01/19/2025 2:00 PM EST Telemedicine [facility] [address] [place] [address] Juarez Quintana MD [address] [place] [address] documented as of this encounter Visit Diagnoses Not on filedocumented in this encounter Care Teams Regional Sales Executive Relationship Specialty Start Date End Date Juarez Quintana MD [address] [place] [address] PCP - General Internal Medicine 07/18/19 documented as of this encounter
--- OUTSIDE RECORDS SUMMARY | 2025-01-11 19:29 | XMS_ITS | Clinical Summary ---
Author Organization [employer] Address [address] [address] [place] [address] Care Team Providers Care Centrifugal Casting Machine Operator Name Role Phone Juarez Quintana MD [...] topical BID 100 g 3 5 Active sulfamethoxazole- trimethoprim (Bactrim DS) 800-160 MG tabletIndications :Cellulitis, unspecified cellulitis site Take 1 tablet by mouth 2 times daily for 10 days. 20 tablet 5 01/22/20 25 Active cephalexin (Keflex) 500 MG capsuleIndication s:Cellulitis, unspecified cellulitis site Take 1 capsule (500 mg) by mouth 2 times daily for 10 days. 20 capsule 5 01/22/20 25 Active Active Problems Problem Noted Date Diagnosed Date Abscess 01/11/2025 Primary hypertension 03/12/2024 Assessment & Plan (07/30/2024 [...] ct scan showed artifact vs loss of walker matter, will order MRI Assessment & Plan [...] Encounters Date Type Department Care Team Description 01/11/2025 9:40 AM EST Office Visit [facility] [address] [place] [address] Brit Jovel MD Cellulitis, unspecified cellulitis site (Primary Dx); Abscess 01/11/2025 Travel from Last 3 Months Immunizations Immunization Administration [...] Mass Index 29.83 01/11/2025 10:40 AM EST Plan of Treatment Upcoming Encounters Date Type Department Care Team (Late st Contact Info) Description 01/19/2025 2:00 PM EST Telemedicine [facility] [address] [place] [address] Juarez Quintana MD [address] [place] [address] Health Maintenance Due Date Last Done Comments [...] 2024 Disability Screening 03/11/2025 03/11/2024 Tobacco Screening 01/11/2026 01/11/2025 Lipid Panel 09/29/2028 09/30/2023, 07/12/2021 Zoster Vaccines [...] Procedure Name Priority Date/Time Associated Diagnosis Comments MR BRAIN WO CONTRAST Routine 12/13/2024 7:40 PM EDT Aching headache HEPATITIS C AB W/REFL TO HCV RNA, QN, PCR Routine 09/30/2023 8:10 AM EDT Primary hypertension HIV 1/2 ANTIGEN/ANTIBODY, FOURTH GENERATION W/RFL Routine 09/30/2023 8:10 AM EDT Primary hypertension LIPID PANEL, STANDARD Routine 09/30/2023 8:10 AM EDT Primary hypertension from Last 3 Months or Most Recently Relevant to Health Maintenance Results * MR Brain w/o Contrast (12/13/2024 7:40 PM EDT) Anatomical Region Laterality Modality Brain Magnetic Resonan ce 12/13/2024 7:40 PM EDT Narrative 12/14/2024 6:43 AM EDT [address] [address] Magnetic Resonance Report Signed Patient: Sally Her MR#: [id number] : 1985 Acct:[id number] Age/Sex: 39 / F ADM Date: 12/13/24 Loc: HO.MRI Attending Dr: Juarez Franco MD Ordering Physician: Juarez Quintana MD Date of Service: 12/13/24 Procedure(s): MR head/brain wo con Accession Number(s): [id number] cc: Juarez Quintana MD Reason for Exam: loss of walker matter on ct scan vs artifact EXAMINATION: MR BRAIN WITHOUT CONTRAST CLINICAL INFORMATION: Loss of walker-white matter versus artifact, left occipital. COMPARISON: Correlated to CT dated September 30, 2024. TECHNIQUE: MRI of the brain was obtained using routine sequences without contrast. FINDINGS: No restricted diffusion. No acute intracranial hemorrhage, mass effect, midline shift, hydrocephalus or herniation. Walker-white matter differentiation is normal. Posterior cranial fossa contents demonstrated no signal abnormality or mass effect. Cerebral/suprasellar region is normal. Craniocervical junction is intact with normal position of the cerebellar tonsils. Small retention cyst, right ethmoid air cells. MR/MR head/brain wo con IMPRESSION: No acute or structural brain abnormality. Electronically signed by: Fritz Colon MD 12/14/2024 06:40 AM EDT Dictated By: Fritz Morocho MD Signed By: <Electronically signed by Fritz Chacko MD in OV> 12/14/24 0640 DD/ 39 TD/TT: 12/13/242004 Legal Intern: Procedure Note Donotuseinterpreter, Image - 12/14/[address] [address] Magnetic Resonance Report Signed Patient: Sally HerMR#: [id number] : 1985Acct:[id number] Age/Sex: 39 / FADM Date: 12/13/24 Loc: HO.MRI Attending Dr: Juarez Franco MD Ordering Physician: Juarez Quintana MD Date of Service: 12/13/24 Procedure(s): MR head/brain wo con Accession Number(s): [id number] cc: Juarez Quintana MD Reason for Exam: loss of walker matter on ct scan vs artifact EXAMINATION: MR BRAIN WITHOUT CONTRAST CLINICAL INFORMATION: Loss of walker-white matter versus artifact, left occipital. COMPARISON: Correlated to CT dated September 30, 2024. TECHNIQUE: MRI of the brain was obtained using routine sequences without contrast. FINDINGS: No restricted diffusion. No acute intracranial hemorrhage, mass effect, midline shift, hydrocephalus or herniation. Walker-white matter differentiation is normal. Posterior cranial fossa contents demonstrated no signal abnormality or mass effect. Cerebral/suprasellar region is normal. Craniocervical junction is intact with normal position of the cerebellar tonsils. Small retention cyst, right ethmoid air cells. MR/MR head/brain wo con IMPRESSION: No acute or structural brain abnormality. Electronically signed by: Fritz Colon MD 12/14/2024 06:40 AM EDT Dictated By: Fritz Morocho MD Signed By: <Electronically signed by Fritz Chacko MDin OV> 12/14/24 0640 DD/ 39 TD/TT: 12/13/242004 Legal Intern: Juarez Franco MD IM MRI PROCEDURES Final Result * Hepatitis C Antibody with Reflex to HCV, RNA, Quantitative, Real-Time PCR (09/30/2023 8:10 AM EDT) Hepatitis C Antibody Nonreactive Nonreactive [facility] Comment:Antibodies to HCV no t detected; does not exclude early acuteHCV infection. Blood Venous blood specimen / Unknown 09/30/2023 8:10 AM EDT 09/30/2023 2:36 PM EDT Juarez Franco MD LAB BLOOD ORDERABL ES Final Result Performing Organization Address [facility]/ZIP Co de Phone Number [facility] [address] [place] [phone] * HIV-1/2 Antigen and Antibodies, Fourth Generation, with Reflexes (09/30/2023 8:10 AM EDT) HIV AB/AG Nonreactive Nonreactive [facility] Comment:HIV-1 p24 Ag and/or HIV-1/HIV-2 Ab not detected.A test result that is nonreactive does not exclude thepossibility of exposure to or infection with HIV-1 and/orHIV-2. Nonreactive results in this assay for individualswith prior exposure to HIV-1 and/or HIV-2 may be due toantigen and antibody levels that are below the limit ofdetection of this assay.The [facility] HIV Ag/Ab Combo assay result andsupplemental assay results should be interpreted inconjunction with the patient's clinical presentation,history and other laboratory results. If the results areinconsistent with clinical evidence, additional testing issuggested to confirm the result. Blood Venous blood specimen / Unknown 09/30/2023 8:10 AM EDT 09/30/2023 2:36 PM EDT us Juarez Franco MD LAB BLOOD ORDERABL ES Final Result Performing Organization Address [facility]/ZIP Co de Phone Number [facility] [address] [place] [phone] * (ABNORMAL) Lipid Panel, Standard (09/30/2023 8:10 AM EDT) Triglycerides 102 <150 mg/dL [facility] Comment:Desirable Triglyceri de: less than 150 mg/dLBorderline High Triglyceride 150-199 mg/dLHigh Triglyceride: 200-499 mg/dLVery High Triglyceride: greater than or equal to 5OO mg/dL Cholesterol 208(H) <200 mg/dL [facility] Comment:Desirable Cholestero l: less than 200 mg/dLBorderline High Cholesterol: 200-239 mg/dLHigh Cholesterol: greater than 239 mg/dL LDL Cholesterol Calculated 133(H) <100 mg/dL [facility] Comment:Desirable LDL: less than 100 mg/dLNear Optimal/Above Optimal LDL: 110- 129 mg/dLBorderline High LDL: 130-159 mg/dLHigh LDL: 160-189 mg/dLVery High LDL: greater than or equal to 190 mg/dL HDL Cholesterol 55 >40 mg/dL [facility] Comment:Desirable HDL: great er than 40 mg/dL Note: This HDL assay may give artificially low results in patients with liver disease. Blood Venous blood specimen / Unknown 09/30/2023 8:10 AM EDT 09/30/2023 2:36 PM EDT us Juarez Franco MD LAB BLOOD ORDERABL ES Final Result [facility] [address] [place] [phone] from Last 3 Months or Most Recently Relevant to Health Maintenance Insurance [facility] C3 Care Teams Centrifugal Casting Machine Operator Relationship Specialty Start Date End Date Juarez Quintana MD [address] [place] [phone] PCP - General Internal Medicine 07/18/19
[2025-01-12 10:18] LABS: MRSA Nasal PCR NEGATIVE (Negative); SA Nasal PCR NEGATIVE (Negative)
== END 2025-01-11 16:19 | disposition home or self-care (01) ==
LOC: HO.CHCLNP 16:18
PROVIDERS: PCP Family Medicine; Visit Provider Family Medicine
DX: L02.91 Cutaneous abscess, unspecified (principal)
CPT/HCPCS: 87640; 87641